=== PATIENT | female | born 1940 | race Caucasian/White ===

== ENCOUNTER 2018-06-22 06:04 | Day surgery (SDC) | payer MEDICARE, MEDICAID ==
[~2018-06-22] VITALS: Ht 152.4 cm; Wt 58.1 kg
[~2018-06-22 06:04] MED LIST: CALC-900 PO; CLON0.3T PO; CYCL30DR BOTHEYE; DORZ10DR8 BOTHEYE; DOXA8TAB81 PO; FISH1CAP63 PO; FOLI0.8T27 PO; INSU300I SQ; LINA5TAB PO; METO-539 PO; NIFE90TA34 PO; OMEP20CA10 PO; [UNRECOGNIZED DRUG - CODE] PO
[2018-06-22] MEDS ORDERED: SODIUM CHLORIDE 0.9% 500 ML IV ONE (06:40)
[2018-06-22] MEDS ORDERED: DEXTROSE 50% WATER 50ML SYRINGE IV ONE ×3 (07:03→07:11)
[2018-06-22 07:04] LABS: BASOPHILS % 0.3 % (0.0-2.0); HEMATOCRIT. 33.7 % (36.0-48.0); HEMOGLOBIN. 11.3 g/dL (12.0-16.0); LYMPHOCYTES % 13.7 % (20.0-50.0); MEAN CORPUSCULAR HEMOGLOBIN 33.7 pg (28.0-32.0); MEAN CORPUSCULAR VOLUME 100.6 fL (81.0-99.0); MEAN PLATELET VOLUME 8.1 fl (7.4-10.4); MONOCYTES % 11.4 % (2.0-8.0); NEUTROPHILS % 74.6 % (40.0-76.0); PLATELET 224 x1000/uL (130-400); RED BLOOD CELL COUNT 3.35 mill/uL (4.2-5.4); RED CELL DISTRIBUTION WIDTH 17.8 % (11.6-14.6)
[2018-06-22] MEDS ORDERED: THROMBIN (BOVINE) 5000 UNITS/VIAL TOP ONE (07:05)
[2018-06-22] MEDS ORDERED: HEPARIN SODIUM 1,000 UNIT/1ML VIAL IV ONE (07:05)
[2018-06-22] MEDS ORDERED: BUPIVACAINE HCL/PF 0.5% (5MG/ML) 10ML ONE (07:05)
[2018-06-22] MEDS ORDERED: LIDOCAINE HCL/PF 1% 10 MG/ML 5ML VIAL ONE ×3 (07:06→09:16)
[2018-06-22] MEDS ORDERED: GELATIN SPONGE,COMPRESSED SZ 100 ONE (07:06)
[2018-06-22] MEDS ORDERED: BACITRACIN 50,000 UNITS/VIAL ONE (07:08)
[2018-06-22] MEDS ORDERED: NORMAL SALINE 0.9% 10 ML SYR ONE (07:08)
[2018-06-22 07:11] LABS: INR 1.2; PARTIAL THROMBOPLASTIN TIME 36.2 sec (23.4-31.0); PROTHROMBIN TIME 11.9 sec (9.1-11.1)
[2018-06-22] MEDS ORDERED: FENTANYL CITRATE/PF 50MCG/ML 2ML VIAL ONE (07:15)
[2018-06-22] MEDS ORDERED: MIDAZOLAM HCL 2 MG/2 ML VIAL ONE (07:15)
[2018-06-22] MEDS ORDERED: PROPOFOL 10MG/ML 100ML 100 ML IV ONE (07:33)
[2018-06-22] MEDS ORDERED: ONDANSETRON HCL 4MG/2ML VIAL IV PRN (07:45)
[2018-06-22] MEDS ORDERED: HYDROCODONE/ACETAMINOPHEN 5/325MG TABLET PO PRN (07:45)
[2018-06-22] MEDS ORDERED: GLYCOPYRROLATE 0.2 MG/ML 2ML VIAL ONE (08:22)
[2018-06-22] MEDS ORDERED: NITROGLYCERIN 50MG PREMIX 250 ML IV ONE (09:09)
[2018-06-22] MEDS ORDERED: BACITRACIN ZINC 15GM TUBE TOP ONE (09:12)
[2018-06-22] MEDS ORDERED: CEFAZOLIN SODIUM 1000MG/VIAL ONE (09:16)
[2018-06-22] MEDS ORDERED: FENTANYL CITRATE/PF 50MCG/ML 2ML VIAL IV PRN (10:15)
[2018-06-22] MEDS ORDERED: MORPHINE SULFATE 4 MG/ML CPJ (NOT FOR IM USE) IV PRN (10:15)
[2018-06-22 10:31] VITALS: BP 158/60
== END 2018-06-22 12:30 | disposition home or self-care (01) ==
LOC: OR 06:04
PROVIDERS: ATTEND Surgery Vascular Surgery
DX: N18.6 End stage renal disease (principal); I12.0 Hypertensive chronic kidney disease with stage 5 chronic kidney disease or end stage renal disease; E11.22 Type 2 diabetes mellitus with diabetic chronic kidney disease; K21.9 Gastro-esophageal reflux disease without esophagitis; D64.9 Anemia, unspecified; Z99.2 Dependence on renal dialysis; Z79.899 Other long term (current) drug therapy; Z79.4 Long term (current) use of insulin; Z98.890 Other specified postprocedural states; Z88.8 Allergy status to other drugs, medicaments and biological substances
CPT/HCPCS: 36415; 36832; 71045; 80048; 82962; 85025; 85610; 85730; 93005; A4216; C1768; J0690; J1644; J2704; J3010; J3490; J7030; J2250

== ENCOUNTER 2018-06-28 14:56 | Inpatient (IN) | payer MEDICARE, MEDICAID ==
[~2018-06-28] VITALS: Ht 154.9 cm; Wt 79.8 kg
[2018-06-28] MEDS ORDERED: VANCOMYCIN 1 G PREMIX 200 ML IV SCH (16:00)
[2018-06-28] MEDS ORDERED: MORPHINE SULFATE 4 MG/ML CPJ (NOT FOR IM USE) IV ONE (16:00)
[2018-06-28 16:45] LABS: HEMATOCRIT. 31.3 % (36.0-48.0); HEMOGLOBIN. 10.4 g/dL (12.0-16.0); MEAN CORPUSCULAR VOLUME 99.5 fL (81.0-99.0); MEAN PLATELET VOLUME 8.5 fl (7.4-10.4); PLATELET 182 x1000/uL (130-400); RED BLOOD CELL COUNT 3.15 mill/uL (4.2-5.4)
[2018-06-28 16:47] LABS: CHLORIDE 92 mEq/L (98-107)
[2018-06-28 16:48] LABS: INR 1.1; PROTHROMBIN TIME 11.2 sec (9.1-11.1)
[2018-06-28] MEDS ORDERED: ALBUTEROL (0.083%) 2.5MG/3ML NEB HHN ONE (17:00)
[2018-06-28] MEDS ORDERED: INSULIN REGULAR (HUMULIN R) 300UNITS/3ML IV ONE (17:00)
[2018-06-28] MEDS ORDERED: SODIUM BICARBONATE 8.4% 1 MEQ/ML 50ML SYR IV ONE (17:00)
[2018-06-28] MEDS ORDERED: DEXTROSE 50% WATER 50ML SYRINGE IV ONE (17:00)
[2018-06-28 17:03] LABS: PLATELET ESTIMATE NORMAL
[2018-06-28] MEDS ORDERED: CLONIDINE 0.1MG TABLET PO PRN ×2 (18:45→19:32)
[2018-06-28] MEDS ORDERED: ACETAMINOPHEN 325MG TABLET PO PRN (18:45)
[2018-06-28] MEDS ORDERED: IPRATROPIUM/ALBUTEROL 0.5-3(2.5)MG/3ML NEB INH PRN (18:45)
[2018-06-28] MEDS ORDERED: ENOXAPARIN 40MG/0.4ML SYR SUBCUT SCH (18:45)
[2018-06-28] MEDS ORDERED: DOCUSATE SODIUM 100MG CAPSULE PO PRN (18:45)
[2018-06-28] MEDS ORDERED: MAGNESIUM/ALUMINUM HYDROXIDE/SIMETHICONE 30ML UDC PO PRN (18:45)
[2018-06-28] MEDS ORDERED: GUAIFENESIN 200MG/10ML SUGAR FREE UDC PO PRN (18:45)
[2018-06-28] MEDS ORDERED: HYDROMORPHONE HCL/PF 2MG/ML CPJ IV PRN (18:45)
[2018-06-28] MEDS ORDERED: DIPHENHYDRAMINE 50MG/ML VIAL IV PRN (18:45)
[2018-06-28] MEDS ORDERED: LORAZEPAM 2MG/ML CPJ IV PRN (18:45)
[2018-06-28] MEDS ORDERED: ONDANSETRON HCL 4MG/2ML VIAL IV PRN (18:45)
[2018-06-28 20:45] VITALS: BP 176/63
[2018-06-28] MEDS ORDERED: DEXTROSE 50% WATER 50ML SYRINGE IV PRN (21:45)
[2018-06-28] MEDS: CLONIDINE 0.1MG TABLET PO PRN (21:58)
[2018-06-28] MEDS ORDERED: NA PHOS,M-B/NA PHOS,DI-BA ENEMA 118ML PR PRN (22:00)
[2018-06-28 22:34] LABS: CHLORIDE 92 mEq/L (98-107)
[2018-06-28] MEDS ORDERED: INSU300I3 SQ (23:20)
[2018-06-28] MEDS ORDERED: LINA5TAB MT (23:23)
[2018-06-28] MEDS ORDERED: FOLI0.8T27 PO (23:24)
[2018-06-28] MEDS ORDERED: CALC-30 MT (23:28)
[2018-06-28] MEDS ORDERED: ATOR10TA PO (23:29)
[2018-06-28] MEDS ORDERED: CIPR1VIA2 EACH EAR (23:32)
[2018-06-28] MEDS ORDERED: CYCL30DR EACHEYE (23:33)
[2018-06-29] VITALS: BP 176/63
[2018-06-29] MEDS: CLONIDINE 0.1MG TABLET PO PRN ×2 (00:57→04:50)
[2018-06-29] MEDS ORDERED: SODIUM POLYSTYRENE SULFONATE 15 G/60 ML BOT PO NR ×2 (01:00→08:45)
[2018-06-29 04:00] VITALS: BP 176/62
[2018-06-29] MEDS: BLOOD SUGAR DIAGNOSTIC STRIP TEST SCH ×4 (06:06→20:57)
[2018-06-29] MEDS: INSULIN LISPRO 100 UNITS/ML SUBCUT SCH ×4 (06:06→20:56)
[2018-06-29 07:21] LABS: BASOPHILS % 0.2 % (0.0-2.0); HEMATOCRIT. 28.2 % (36.0-48.0); HEMOGLOBIN. 9.5 g/dL (12.0-16.0); MEAN CORPUSCULAR HEMOGLOBIN 33.7 pg (28.0-32.0); MEAN CORPUSCULAR VOLUME 99.8 fL (81.0-99.0); MEAN PLATELET VOLUME 9.2 fl (7.4-10.4); MONOCYTES % 10.8 % (2.0-8.0); PLATELET 181 x1000/uL (130-400); RED BLOOD CELL COUNT 2.83 mill/uL (4.2-5.4); RED CELL DISTRIBUTION WIDTH 17.1 % (11.6-14.6)
[2018-06-29 07:37] LABS: CHLORIDE 93 mEq/L (98-107)
[2018-06-29 07:47] LABS: LDL CHOLESTEROL 50 mg/dL (5-100)
[2018-06-29 07:49] LABS: HDL CHOLESTEROL 44 mg/dL (40-59)
[2018-06-29 08:00] VITALS: BP_SYST 129; BP_SYST 178; BP_DIAS 62; BP_DIAS 82
[2018-06-29] MEDS ORDERED: INSULIN REGULAR (HUMULIN R) UD 100 UNITS/ML SYR IV NR (08:45)
[2018-06-29] MEDS ORDERED: DEXTROSE 50% WATER 50ML SYRINGE IV NR (08:45)
[2018-06-29] MEDS ORDERED: SODIUM BICARBONATE 8.4% 1 MEQ/ML 50ML SYR IV NR (08:45)
[2018-06-29] MEDS ORDERED: CALCIUM GLUCONATE 1,000 MG in DEXT 5% WATER 90 ML IV NR (09:00)
[2018-06-29] MEDS: ASPIRIN 81MG EC TABLET PO SCH (09:36)
[2018-06-29] MEDS: METOPROLOL TARTRATE 50MG TABLET PO SCH ×2 (09:36→20:34)
[2018-06-29] MEDS: OMEPRAZOLE 20MG CAPSULE EXTENDED RELEASE PO SCH (09:36)
[2018-06-29] MEDS: FOLIC ACID/VITAMIN B COMP W-C TABLET PO SCH (09:37)
[2018-06-29] MEDS: LINAGLIPTIN 5MG TABLET PO SCH (09:37)
[2018-06-29] MEDS: NIFEDIPINE XL 90MG TAB PO SCH (09:37)
[2018-06-29] MEDS: ENOXAPARIN 30MG/0.3ML SYR SUBCUT SCH (09:39)
[2018-06-29] MEDS ORDERED: PIPERACILLIN/TAZOBACTAM 2.25 G in DEXTROSE 5% WATER 50 ML IV SCH (10:00)
[2018-06-29 12:00] VITALS: BP 162/57
[2018-06-29] MEDS: SEVELAMER CARBONATE 800 MG TABLET PO SCH ×2 (12:40→17:19)
[2018-06-29] MEDS ORDERED: SODIUM BICARBONATE 4% (2.4MEQ) 5ML VIAL IV ONE (13:42)
[2018-06-29] MEDS ORDERED: LIDOCAINE HCL 1% 10 MG/ML 10ML VIAL ONE (13:43)
[2018-06-29] MEDS: PIPERACILLIN/TAZ 2.25G PREMIX 50 ML IV SCH ×2 (14:00→23:16)
[2018-06-29] MEDS: CLONIDINE 0.3MG TABLET PO SCH ×2 (14:00→23:16)
[2018-06-29 20:00] VITALS: BP 162/53
[2018-06-29] MEDS: ATORVASTATIN CALCIUM 10MG TABLET PO SCH (20:34)
[2018-06-29] MEDS: DOXAZOSIN MESYLATE 4MG TABLET PO SCH (20:34)
[2018-06-29] MEDS: HYDROCODONE/ACETAMINOPHEN 10/325MG TABLET PO PRN (20:35)
[2018-06-29] MEDS: INSULIN GLARGINE UD 100 UNITS/ML SYR SUBCUT SCH (22:00)
[2018-06-30] VITALS: BP 150/57
[2018-06-30 04:00] VITALS: BP 142/53
[2018-06-30] MEDS: PIPERACILLIN/TAZ 2.25G PREMIX 50 ML IV SCH ×3 (05:53→21:41)
[2018-06-30] MEDS: CLONIDINE 0.3MG TABLET PO SCH (06:00)
[2018-06-30] MEDS: BLOOD SUGAR DIAGNOSTIC STRIP TEST SCH ×4 (06:12→20:17)
[2018-06-30] MEDS: FOLIC ACID/VITAMIN B COMP W-C TABLET PO SCH (06:16)
[2018-06-30] MEDS: INSULIN LISPRO 100 UNITS/ML SUBCUT SCH ×4 (06:24→20:23)
[2018-06-30] MEDS: HYDROCODONE/ACETAMINOPHEN 10/325MG TABLET PO PRN (06:25)
[2018-06-30 07:46] LABS: HEMATOCRIT. 28.8 % (36.0-48.0); HEMOGLOBIN. 9.6 g/dL (12.0-16.0); RED BLOOD CELL COUNT 2.86 mill/uL (4.2-5.4)
[2018-06-30 07:47] LABS: BASOPHILS % 0.3 % (0.0-2.0); MEAN CORPUSCULAR HEMOGLOBIN 33.4 pg (28.0-32.0); MEAN CORPUSCULAR VOLUME 100.8 fL (81.0-99.0); MEAN PLATELET VOLUME 8.8 fl (7.4-10.4); MONOCYTES % 11.3 % (2.0-8.0); NEUTROPHILS % 78.4 % (40.0-76.0); PLATELET 186 x1000/uL (130-400); RED CELL DISTRIBUTION WIDTH 17.1 % (11.6-14.6)
[2018-06-30 08:00] VITALS: BP 166/56
[2018-06-30] MEDS: SEVELAMER CARBONATE 800 MG TABLET PO SCH ×3 (08:14→17:44)
[2018-06-30] MEDS: NIFEDIPINE XL 90MG TAB PO SCH (08:14)
[2018-06-30] MEDS: LINAGLIPTIN 5MG TABLET PO SCH (08:15)
[2018-06-30] MEDS: ASPIRIN 81MG EC TABLET PO SCH (08:15)
[2018-06-30] MEDS: METOPROLOL TARTRATE 50MG TABLET PO SCH ×2 (08:15→20:17)
[2018-06-30] MEDS: ENOXAPARIN 30MG/0.3ML SYR SUBCUT SCH (08:16)
[2018-06-30] MEDS ORDERED: LACTULOSE 20G/30ML UDC PO NR (10:00)
[2018-06-30] MEDS: OMEPRAZOLE 20MG CAPSULE EXTENDED RELEASE PO SCH (10:22)
[2018-06-30 12:00] VITALS: BP 147/63
[2018-06-30 12:16] LABS: T4 FREE 1.08 ng/dL (0.76-1.46)
[2018-06-30] MEDS: CLONIDINE 0.1MG TABLET PO PRN (12:50)
[2018-06-30] MEDS: DORZOLAMIDE 2% OPHTH 10 ML BOTTLE BOTHEYE SCH ×2 (13:16→21:42)
[2018-06-30] MEDS ORDERED: VANCOMYCIN 750 MG PREMIX 150 ML IV SCH (16:00)
[2018-06-30 16:13] VITALS: BP 142/52
[2018-06-30 17:57] LABS: CREATINE KINASE 29 IU/L (26-192)
[2018-06-30 17:59] LABS: CREATINE KINASE MB FRACTION < 1.0 ng/mL (0.5-3.6)
[2018-06-30 20:00] VITALS: BP 139/50
[2018-06-30] MEDS: ATORVASTATIN CALCIUM 10MG TABLET PO SCH (20:16)
[2018-06-30] MEDS: DOXAZOSIN MESYLATE 4MG TABLET PO SCH (20:17)
[2018-06-30] MEDS: INSULIN GLARGINE UD 100 UNITS/ML SYR SUBCUT SCH (22:00)
[2018-07-01] VITALS: BP 145/80
[2018-07-01 01:55] LABS: CREATINE KINASE 27 IU/L (26-192)
[2018-07-01 01:57] LABS: CREATINE KINASE MB FRACTION < 1.0 ng/mL (0.5-3.6)
[2018-07-01 04:00] VITALS: BP 160/59
[2018-07-01] MEDS: PIPERACILLIN/TAZ 2.25G PREMIX 50 ML IV SCH ×3 (05:48→22:29)
[2018-07-01] MEDS: DORZOLAMIDE 2% OPHTH 10 ML BOTTLE BOTHEYE SCH ×3 (05:48→22:28)
[2018-07-01] MEDS: FOLIC ACID/VITAMIN B COMP W-C TABLET PO SCH ×2 (06:11→08:41)
[2018-07-01] MEDS: INSULIN LISPRO 100 UNITS/ML SUBCUT SCH ×4 (06:14→21:00)
[2018-07-01] MEDS: BLOOD SUGAR DIAGNOSTIC STRIP TEST SCH ×4 (06:24→21:00)
[2018-07-01 08:00] VITALS: BP 177/82
[2018-07-01] MEDS ORDERED: BISACODYL 5MG TABLET PO SCH (08:30)
[2018-07-01] MEDS: SEVELAMER CARBONATE 800 MG TABLET PO SCH ×3 (08:40→17:50)
[2018-07-01] MEDS: LINAGLIPTIN 5MG TABLET PO SCH (08:40)
[2018-07-01] MEDS: OMEPRAZOLE 20MG CAPSULE EXTENDED RELEASE PO SCH (08:41)
[2018-07-01] MEDS: NIFEDIPINE XL 90MG TAB PO SCH (08:41)
[2018-07-01] MEDS: METOPROLOL TARTRATE 50MG TABLET PO SCH ×2 (08:42→22:27)
[2018-07-01] MEDS: ASPIRIN 81MG EC TABLET PO SCH (08:42)
[2018-07-01] MEDS: ENOXAPARIN 30MG/0.3ML SYR SUBCUT SCH (08:43)
[2018-07-01] MEDS: CLONIDINE 0.1MG TABLET PO PRN (11:50)
[2018-07-01 12:00] VITALS: BP 191/64
[2018-07-01] MEDS ORDERED: VANCOMYCIN 750 MG PREMIX 150 ML IV SCH (14:00)
[2018-07-01] MEDS: HYDRALAZINE HCL 50MG TABLET PO SCH ×2 (15:47→22:00)
[2018-07-01 16:00] VITALS: BP 152/58
[2018-07-01 20:00] VITALS: BP 150/48
[2018-07-01 21:24] LABS: HEMOGLOBIN. 9.9 g/dL (12.0-16.0); MEAN CORPUSCULAR HEMOGLOBIN 33.1 pg (28.0-32.0); MEAN CORPUSCULAR VOLUME 99.8 fL (81.0-99.0); MEAN PLATELET VOLUME 8.6 fl (7.4-10.4); PLATELET 209 x1000/uL (130-400); RED CELL DISTRIBUTION WIDTH 16.3 % (11.6-14.6)
[2018-07-01 21:31] LABS: CHLORIDE 96 mEq/L (98-107)
[2018-07-01 21:39] LABS: CREATINE KINASE 26 IU/L (26-192)
[2018-07-01 21:41] LABS: CREATINE KINASE MB FRACTION < 1.0 ng/mL (0.5-3.6)
[2018-07-01 22:08] LABS: PLATELET ESTIMATE NORMAL
[2018-07-01] MEDS: DOXAZOSIN MESYLATE 4MG TABLET PO SCH (22:26)
[2018-07-01] MEDS: ATORVASTATIN CALCIUM 10MG TABLET PO SCH (22:27)
[2018-07-02] VITALS: BP 148/58
[2018-07-02 04:00] VITALS: BP 157/56
[2018-07-02] MEDS: DORZOLAMIDE 2% OPHTH 10 ML BOTTLE BOTHEYE SCH (05:56)
[2018-07-02] MEDS: PIPERACILLIN/TAZ 2.25G PREMIX 50 ML IV SCH (05:57)
[2018-07-02] MEDS: HYDRALAZINE HCL 50MG TABLET PO SCH ×2 (05:57→13:38)
[2018-07-02] MEDS: SEVELAMER CARBONATE 800 MG TABLET PO SCH ×2 (06:02→12:44)
[2018-07-02] MEDS: INSULIN LISPRO 100 UNITS/ML SUBCUT SCH ×2 (06:18→12:44)
[2018-07-02] MEDS: BLOOD SUGAR DIAGNOSTIC STRIP TEST SCH ×2 (06:18→12:44)
[2018-07-02 08:30] VITALS: BP 148/52
[2018-07-02] MEDS ORDERED: FAMOTIDINE 20MG TABLET PO SCH (09:00)
[2018-07-02] MEDS: NIFEDIPINE XL 90MG TAB PO SCH (09:00)
[2018-07-02] MEDS: METOPROLOL TARTRATE 50MG TABLET PO SCH (09:00)
[2018-07-02] MEDS: ASPIRIN 81MG EC TABLET PO SCH (09:22)
[2018-07-02] MEDS: LINAGLIPTIN 5MG TABLET PO SCH (09:22)
[2018-07-02] MEDS: ENOXAPARIN 30MG/0.3ML SYR SUBCUT SCH (09:23)
[2018-07-02 11:23] VITALS: BP 155/53
[2018-07-02 12:00] VITALS: BP 155/53
== END 2018-07-02 14:45 | disposition home or self-care (01) | DRG 919 ==
LOC: ER 14:56 → 8WST 17:24 → EDBEDREQ 17:29 → ENRESERV 19:52 → 8WST 06-29 15:47
PROVIDERS: ADMIT Internal Medicine; ATTEND Internal Medicine
PROC: B5181ZA Fluoroscopy of Superior Vena Cava using Low Osmolar Contrast, Guidance (ICD-10-PCS; principal; 2018-06-29)
PROC: 02HV33Z Insertion of Infusion Device into Superior Vena Cava, Percutaneous Approach (ICD-10-PCS; 2018-06-29)
PROC: B548ZZA Ultrasonography of Superior Vena Cava, Guidance (ICD-10-PCS; 2018-06-29)
PROC: 5A1D70Z Performance of Urinary Filtration, Intermittent, Less than 6 Hours Per Day (ICD-10-PCS; 2018-06-29)
PROC: 5A1D70Z Performance of Urinary Filtration, Intermittent, Less than 6 Hours Per Day (ICD-10-PCS; 2018-07-01)
DX: T85.79XA Infection and inflammatory reaction due to other internal prosthetic devices, implants and grafts, initial encounter (principal); N18.6 End stage renal disease; E46 Unspecified protein-calorie malnutrition; I13.2 Hypertensive heart and chronic kidney disease with heart failure and with stage 5 chronic kidney disease, or end stage renal disease; L03.114 Cellulitis of left upper limb; E87.5 Hyperkalemia; E11.22 Type 2 diabetes mellitus with diabetic chronic kidney disease; Y84.1 Kidney dialysis as the cause of abnormal reaction of the patient, or of later complication, without mention of misadventure at the time of the procedure; E66.9 Obesity, unspecified; D64.9 Anemia, unspecified; I25.10 Atherosclerotic heart disease of native coronary artery without angina pectoris; I50.9 Heart failure, unspecified; I27.20 Pulmonary hypertension, unspecified; Z79.4 Long term (current) use of insulin; Z91.041 Radiographic dye allergy status; Z68.33 Body mass index [BMI] 33.0-33.9, adult; Z99.2 Dependence on renal dialysis; Z79.2 Long term (current) use of antibiotics; Z79.899 Other long term (current) drug therapy; Y92.89 Other specified places as the place of occurrence of the external cause
CPT/HCPCS: 36415; 36556; 71045; 74176; 76881; 76937; 77001; 80048; 80053; 80061; 80202; 82550; 82553; 82962; 83036; 83605; 83880; 84132; 84439; 84443; 84484; 85025; 85379; 85610; 87040; 93005; 93306; 94644; 96365; 96366; 96375; 97112; 97162; 97166; 97530; 99285; C1752; C1893; J0610; J1642; J1650; J1815; J2270; J2405; J2543; J3370; J3490; J7030; J7050; J7060; J7611

== ENCOUNTER 2018-08-27 12:27 | Inpatient (IN) | payer MEDICARE, MEDICAID ==
[~2018-08-27] VITALS: Ht 152.4 cm; Wt 60.5 kg
[~2018-08-27 12:27] MED LIST changes: +ATOR10TA PO; +CALC-30 MT; +CIPR1VIA2 EACH EAR; -CLON0.3T PO; +CYCL30DR EACHEYE; +INSU300I3 SQ; +LINA5TAB MT
[2018-08-27 13:54] LABS: BASOPHILS % 0.6 % (0.0-2.0); HEMATOCRIT. 34.5 % (36.0-48.0); HEMOGLOBIN. 11.4 g/dL (12.0-16.0); MEAN CORPUSCULAR HEMOGLOBIN 31.9 pg (28.0-32.0); MEAN CORPUSCULAR VOLUME 96.6 fL (81.0-99.0); MEAN PLATELET VOLUME 8.2 fl (7.4-10.4); MONOCYTES % 9.5 % (2.0-8.0); NEUTROPHILS % 79.9 % (40.0-76.0); PLATELET 192 x1000/uL (130-400); RED BLOOD CELL COUNT 3.57 mill/uL (4.2-5.4); RED CELL DISTRIBUTION WIDTH 18.1 % (11.6-14.6)
[2018-08-27 14:00] LABS: INR 1.2; PROTHROMBIN TIME 11.9 sec (9.1-11.1)
[2018-08-27 14:07] LABS: CHLORIDE 92 mEq/L (98-107)
[2018-08-27] MEDS ORDERED: MORPHINE SULFATE 2 MG/ML CPJ (NOT FOR IM USE) IV ONE (14:45)
[2018-08-27 22:00] VITALS: BP 153/63
[2018-08-28] VITALS: BP 90/60
[2018-08-28 01:52] LABS: BASOPHILS % 0.5 % (0.0-2.0); HEMATOCRIT. 36.2 % (36.0-48.0); HEMOGLOBIN. 11.7 g/dL (12.0-16.0); LYMPHOCYTES % 11.2 % (20.0-50.0); MEAN CORPUSCULAR HEMOGLOBIN 31.5 pg (28.0-32.0); MEAN CORPUSCULAR VOLUME 97.4 fL (81.0-99.0); MEAN PLATELET VOLUME 8.4 fl (7.4-10.4); MONOCYTES % 8.9 % (2.0-8.0); NEUTROPHILS % 79.4 % (40.0-76.0); PLATELET 194 x1000/uL (130-400); RED BLOOD CELL COUNT 3.72 mill/uL (4.2-5.4); RED CELL DISTRIBUTION WIDTH 17.9 % (11.6-14.6)
[2018-08-28 04:00] VITALS: BP 133/55
[2018-08-28] MEDS: OMEPRAZOLE 20MG CAPSULE EXTENDED RELEASE PO SCH (06:31)
[2018-08-28] MEDS: BLOOD SUGAR DIAGNOSTIC STRIP TEST SCH ×4 (06:51→21:19)
[2018-08-28] MEDS ORDERED: DEXTROSE 50% WATER 50ML SYRINGE IV PRN (07:00)
[2018-08-28] MEDS: INSULIN LISPRO 100 UNITS/ML SUBCUT SCH ×4 (07:50→21:00)
[2018-08-28 08:00] VITALS: BP 166/68
[2018-08-28] MEDS ORDERED: METOPROLOL TARTRATE 50MG TABLET PO SCH (09:00)
[2018-08-28] MEDS ORDERED: NIFEDIPINE 90 MG PO SCH (09:00)
[2018-08-28] MEDS ORDERED: MEDICATION NOT ON FORMULARY EA (Doxazosin Mesylate 1 MG) PO SCH (09:00)
[2018-08-28] MEDS ORDERED: ATORVASTATIN CALCIUM 10MG TABLET PO SCH (09:00)
[2018-08-28] MEDS: LINAGLIPTIN 5MG TABLET PO SCH (09:00)
[2018-08-28] MEDS ORDERED: MEDICATION NOT ON FORMULARY EA (Metoprolol Tartrate 50 MG) PO SCH (09:00)
[2018-08-28] MEDS ORDERED: DOXAZOSIN MESYLATE 2MG TABLET PO SCH ×2 (09:00)
[2018-08-28 12:00] VITALS: BP 165/71
[2018-08-28] MEDS: SEVELAMER CARBONATE 800 MG TABLET PO SCH ×2 (12:50→18:34)
[2018-08-28] MEDS: DORZOLAMIDE 2% OPHTH 10 ML BOTTLE BOTHEYE SCH ×2 (14:17→18:34)
[2018-08-28] MEDS: NIFEDIPINE XL 90MG TAB PO SCH (15:15)
[2018-08-28] MEDS: HYDRALAZINE HCL 25MG TABLET PO SCH ×2 (15:15→21:19)
[2018-08-28 17:39] LABS: AMMONIA 28 uMol/L (<32)
[2018-08-28 20:00] VITALS: BP 168/66
[2018-08-28] MEDS: VALACYCLOVIR HCL 500MG TABLET PO SCH (21:00)
[2018-08-28] MEDS: ATORVASTATIN CALCIUM 10MG TABLET PO SCH (21:18)
[2018-08-28] MEDS: DOXAZOSIN MESYLATE 4MG TABLET PO SCH (21:18)
[2018-08-28] MEDS: METOPROLOL TARTRATE 25MG TABLET PO SCH (21:19)
[2018-08-28] MEDS: CALAMINE LOTION 120ML TOP SCH (22:00)
[2018-08-28 23:57] VITALS: BP 137/69
[2018-08-29 04:00] VITALS: BP 130/67
[2018-08-29] MEDS: HYDRALAZINE HCL 25MG TABLET PO SCH ×3 (05:14→21:57)
[2018-08-29] MEDS: CALAMINE LOTION 120ML TOP SCH ×3 (05:15→22:06)
[2018-08-29] MEDS: BLOOD SUGAR DIAGNOSTIC STRIP TEST SCH ×4 (06:34→21:00)
[2018-08-29] MEDS: OMEPRAZOLE 20MG CAPSULE EXTENDED RELEASE PO SCH (06:35)
[2018-08-29 07:06] LABS: BASOPHILS % 0.3 % (0.0-2.0); HEMATOCRIT. 33.4 % (36.0-48.0); LYMPHOCYTES % 9.9 % (20.0-50.0); MEAN CORPUSCULAR HEMOGLOBIN 32.2 pg (28.0-32.0); MEAN CORPUSCULAR VOLUME 97.4 fL (81.0-99.0); MEAN PLATELET VOLUME 8.4 fl (7.4-10.4); MONOCYTES % 9.1 % (2.0-8.0); NEUTROPHILS % 80.7 % (40.0-76.0); PLATELET 209 x1000/uL (130-400); RED BLOOD CELL COUNT 3.43 mill/uL (4.2-5.4); RED CELL DISTRIBUTION WIDTH 18.5 % (11.6-14.6)
[2018-08-29] MEDS: INSULIN LISPRO 100 UNITS/ML SUBCUT SCH ×4 (07:50→21:56)
[2018-08-29 08:00] VITALS: BP 153/53
[2018-08-29] MEDS ORDERED: GABAPENTIN 100MG CAPSULE PO SCH ×2 (09:00)
[2018-08-29] MEDS: NIFEDIPINE XL 90MG TAB PO SCH (09:38)
[2018-08-29] MEDS: SEVELAMER CARBONATE 800 MG TABLET PO SCH ×3 (09:39→18:00)
[2018-08-29] MEDS: METOPROLOL TARTRATE 25MG TABLET PO SCH ×2 (09:40→21:50)
[2018-08-29] MEDS: FOLIC ACID/VITAMIN B COMP W-C TABLET PO SCH (09:40)
[2018-08-29] MEDS: LINAGLIPTIN 5MG TABLET PO SCH (09:40)
[2018-08-29] MEDS: VALACYCLOVIR HCL 500MG TABLET PO SCH ×2 (09:41→22:06)
[2018-08-29] MEDS: DORZOLAMIDE 2% OPHTH 10 ML BOTTLE BOTHEYE SCH ×3 (09:41→18:00)
[2018-08-29 12:00] VITALS: BP 156/57
[2018-08-29 13:11] LABS: AMMONIA 29 uMol/L (<32)
[2018-08-29 14:53] LABS: FOLIC ACID (FOLATE) SERUM >20 ng/mL ng/mL (>5.38); VITAMIN B12 SERUM 332 pg/mL (211-911)
[2018-08-29 16:00] VITALS: BP 146/53
[2018-08-29 16:16] LABS: ETHANOL BLOOD < 10 mg/dL
[2018-08-29 16:26] LABS: T4 FREE 1.15 ng/dL (0.76-1.46)
[2018-08-29 20:00] VITALS: BP 135/54
[2018-08-29] MEDS: DOXAZOSIN MESYLATE 4MG TABLET PO SCH (21:48)
[2018-08-29] MEDS: ATORVASTATIN CALCIUM 10MG TABLET PO SCH (21:48)
[2018-08-30] VITALS: BP 127/49
[2018-08-30 04:08] VITALS: BP 151/61
[2018-08-30] MEDS: CALAMINE LOTION 120ML TOP SCH ×3 (05:03→21:48)
[2018-08-30 06:22] LABS: BASOPHILS % 0.3 % (0.0-2.0); HEMATOCRIT. 33.9 % (36.0-48.0); HEMOGLOBIN. 11.3 g/dL (12.0-16.0); LYMPHOCYTES % 10.8 % (20.0-50.0); MEAN CORPUSCULAR HEMOGLOBIN 32.3 pg (28.0-32.0); MEAN CORPUSCULAR VOLUME 97.2 fL (81.0-99.0); MEAN PLATELET VOLUME 8.7 fl (7.4-10.4); MONOCYTES % 8.3 % (2.0-8.0); NEUTROPHILS % 80.6 % (40.0-76.0); PLATELET 230 x1000/uL (130-400); RED BLOOD CELL COUNT 3.49 mill/uL (4.2-5.4); RED CELL DISTRIBUTION WIDTH 17.9 % (11.6-14.6)
[2018-08-30] MEDS: OMEPRAZOLE 20MG CAPSULE EXTENDED RELEASE PO SCH (06:41)
[2018-08-30] MEDS: BLOOD SUGAR DIAGNOSTIC STRIP TEST SCH ×4 (06:41→21:48)
[2018-08-30 06:55] LABS: PHOSPHORUS 3.5 mg/dL (2.5-4.9)
[2018-08-30 08:00] VITALS: BP 155/55
[2018-08-30] MEDS: FOLIC ACID/VITAMIN B COMP W-C TABLET PO SCH (10:27)
[2018-08-30] MEDS: HYDRALAZINE HCL 25MG TABLET PO SCH ×3 (10:27→22:00)
[2018-08-30] MEDS: SEVELAMER CARBONATE 800 MG TABLET PO SCH ×3 (10:27→17:50)
[2018-08-30] MEDS: LINAGLIPTIN 5MG TABLET PO SCH (10:28)
[2018-08-30] MEDS: CYANOCOBALAMIN 1000MCG TABLET PO SCH (10:28)
[2018-08-30] MEDS: VALACYCLOVIR HCL 500MG TABLET PO SCH ×2 (10:42→21:48)
[2018-08-30] MEDS: DORZOLAMIDE 2% OPHTH 10 ML BOTTLE BOTHEYE SCH ×3 (10:42→17:18)
[2018-08-30 12:00] VITALS: BP 113/74
[2018-08-30] MEDS: INSULIN LISPRO 100 UNITS/ML SUBCUT SCH ×3 (12:44→22:02)
[2018-08-30 16:00] VITALS: BP 162/76
[2018-08-30] MEDS: METOPROLOL TARTRATE 25MG TABLET PO SCH ×2 (17:08→21:00)
[2018-08-30] MEDS: ATORVASTATIN CALCIUM 10MG TABLET PO SCH (17:09)
[2018-08-30] MEDS: NIFEDIPINE XL 90MG TAB PO SCH (17:09)
[2018-08-30 20:03] VITALS: BP 194/72
[2018-08-30] MEDS: DOXAZOSIN MESYLATE 4MG TABLET PO SCH (21:00)
[2018-08-31 00:03] VITALS: BP 139/57
[2018-08-31 04:26] VITALS: BP 141/62
[2018-08-31] MEDS: HYDRALAZINE HCL 25MG TABLET PO SCH ×3 (07:03→22:00)
[2018-08-31] MEDS: BLOOD SUGAR DIAGNOSTIC STRIP TEST SCH ×4 (07:03→21:47)
[2018-08-31] MEDS: OMEPRAZOLE 20MG CAPSULE EXTENDED RELEASE PO SCH (07:03)
[2018-08-31] MEDS: CALAMINE LOTION 120ML TOP SCH ×3 (07:03→21:49)
[2018-08-31 07:43] LABS: BASOPHILS % 0.3 % (0.0-2.0); HEMATOCRIT. 37.5 % (36.0-48.0); HEMOGLOBIN. 12.2 g/dL (12.0-16.0); LYMPHOCYTES % 11.7 % (20.0-50.0); MEAN CORPUSCULAR HEMOGLOBIN 31.7 pg (28.0-32.0); MEAN CORPUSCULAR VOLUME 97.3 fL (81.0-99.0); MEAN PLATELET VOLUME 8.5 fl (7.4-10.4); MONOCYTES % 8.3 % (2.0-8.0); NEUTROPHILS % 79.7 % (40.0-76.0); PLATELET 227 x1000/uL (130-400); RED BLOOD CELL COUNT 3.85 mill/uL (4.2-5.4); RED CELL DISTRIBUTION WIDTH 18.4 % (11.6-14.6)
[2018-08-31] MEDS: INSULIN LISPRO 100 UNITS/ML SUBCUT SCH ×4 (07:50→21:50)
[2018-08-31 08:00] VITALS: BP 156/61
[2018-08-31] MEDS: METOPROLOL TARTRATE 25MG TABLET PO SCH ×2 (09:00→21:00)
[2018-08-31] MEDS: NIFEDIPINE XL 90MG TAB PO SCH (10:59)
[2018-08-31] MEDS: CYANOCOBALAMIN 1000MCG TABLET PO SCH (10:59)
[2018-08-31] MEDS: LINAGLIPTIN 5MG TABLET PO SCH (10:59)
[2018-08-31] MEDS: SEVELAMER CARBONATE 800 MG TABLET PO SCH ×3 (11:00→19:03)
[2018-08-31] MEDS: FOLIC ACID/VITAMIN B COMP W-C TABLET PO SCH (11:00)
[2018-08-31] MEDS: DORZOLAMIDE 2% OPHTH 10 ML BOTTLE BOTHEYE SCH ×3 (11:00→19:04)
[2018-08-31] MEDS: VALACYCLOVIR HCL 500MG TABLET PO SCH ×2 (11:01→21:47)
[2018-08-31 11:57] VITALS: BP 143/55
[2018-08-31] MEDS: CLOPIDOGREL 75MG TABLET PO SCH (13:58)
[2018-08-31 16:00] VITALS: BP 120/42
[2018-08-31 20:00] VITALS: BP 122/42
[2018-08-31] MEDS: DOXAZOSIN MESYLATE 4MG TABLET PO SCH (21:00)
[2018-08-31] MEDS: ATORVASTATIN CALCIUM 10MG TABLET PO SCH (21:47)
[2018-09-01] VITALS: BP 138/52
[2018-09-01 04:00] VITALS: BP 154/63
[2018-09-01] MEDS: HYDRALAZINE HCL 25MG TABLET PO SCH (06:00)
[2018-09-01] MEDS: OMEPRAZOLE 20MG CAPSULE EXTENDED RELEASE PO SCH (06:48)
[2018-09-01] MEDS: BLOOD SUGAR DIAGNOSTIC STRIP TEST SCH (06:48)
[2018-09-01] MEDS: CALAMINE LOTION 120ML TOP SCH (06:49)
[2018-09-01] MEDS: INSULIN LISPRO 100 UNITS/ML SUBCUT SCH (07:50)
[2018-09-01 08:00] VITALS: BP 159/63
[2018-09-01] MEDS: CLOPIDOGREL 75MG TABLET PO SCH (08:20)
[2018-09-01] MEDS: FOLIC ACID/VITAMIN B COMP W-C TABLET PO SCH (08:20)
[2018-09-01] MEDS: LINAGLIPTIN 5MG TABLET PO SCH (08:20)
[2018-09-01] MEDS: SEVELAMER CARBONATE 800 MG TABLET PO SCH (08:20)
[2018-09-01] MEDS: NIFEDIPINE XL 90MG TAB PO SCH (08:21)
[2018-09-01] MEDS: CYANOCOBALAMIN 1000MCG TABLET PO SCH (08:21)
[2018-09-01] MEDS: DORZOLAMIDE 2% OPHTH 10 ML BOTTLE BOTHEYE SCH (08:21)
[2018-09-01] MEDS: VALACYCLOVIR HCL 500MG TABLET PO SCH (08:22)
[2018-09-01 09:33] VITALS: BP 159/63
== END 2018-09-01 10:29 | disposition home health service (06) | DRG 64 ==
LOC: ER 12:37 → 6WST 14:36 → EDBEDREQ 19:26 → EDBEDREQTM 19:26 → ENRESERV 20:17
PROVIDERS: ADMIT Internal Medicine Nephrology; ATTEND Internal Medicine Nephrology
PROC: 5A1D70Z Performance of Urinary Filtration, Intermittent, Less than 6 Hours Per Day (ICD-10-PCS; 2018-08-28)
PROC: 5A1D70Z Performance of Urinary Filtration, Intermittent, Less than 6 Hours Per Day (ICD-10-PCS; 2018-08-30)
PROC: 4A00X4Z Measurement of Central Nervous Electrical Activity, External Approach (ICD-10-PCS; principal; 2018-08-31)
DX: I63.521 Cerebral infarction due to unspecified occlusion or stenosis of right anterior cerebral artery (principal); G92 Toxic encephalopathy; N18.6 End stage renal disease; I13.2 Hypertensive heart and chronic kidney disease with heart failure and with stage 5 chronic kidney disease, or end stage renal disease; I50.9 Heart failure, unspecified; D64.9 Anemia, unspecified; E11.22 Type 2 diabetes mellitus with diabetic chronic kidney disease; E78.5 Hyperlipidemia, unspecified; R26.9 Unspecified abnormalities of gait and mobility; G89.29 Other chronic pain; Z79.02 Long term (current) use of antithrombotics/antiplatelets; Z86.19 Personal history of other infectious and parasitic diseases; Z99.2 Dependence on renal dialysis; Z91.041 Radiographic dye allergy status; Z79.2 Long term (current) use of antibiotics; Z79.4 Long term (current) use of insulin; Z79.899 Other long term (current) drug therapy
CPT/HCPCS: 36415; 70544; 70553; 71045; 80048; 82140; 82607; 82746; 82962; 83036; 83735; 84100; 84439; 84443; 84481; 84484; 93005; 93880; 97116; 97162; 97166; 97530; 99291; G0482; J1815; J7030

== ENCOUNTER 2018-11-04 07:43 | Day surgery (SDC) | payer MEDICARE, MEDICAID ==
[~2018-11-04 07:43] MED LIST changes: +ATOR10TA MT; -ATOR10TA PO; +HYDR-4135 MT
[2018-11-04] MEDS ORDERED: DEXTROSE 50% WATER 50ML SYRINGE IV ONE (09:30)
[2018-11-04] MEDS ORDERED: TETRACAINE/BENZOCAINE/BUTAMBEN 20 GM SPRAY MM ONE (09:59)
[2018-11-04] MEDS ORDERED: MIDAZOLAM HCL 5 MG/5 ML VIAL ONE (09:59)
[2018-11-04] MEDS ORDERED: FENTANYL CITRATE/PF 50MCG/ML 2ML VIAL ONE (09:59)
[2018-11-04] MEDS ORDERED: LIDOCAINE HCL 2% JELLY 5ML ONE ×2 (10:01→10:08)
[2018-11-04] MEDS ORDERED: ONDANSETRON HCL 4MG/2ML INJ IV PRN (10:30)
[2018-11-04] MEDS ORDERED: ACETAMINOPHEN 325MG TABLET PO PRN (10:30)
[2018-11-04] MEDS ORDERED: HYDR-4135 PO (11:28)
[2018-11-04] MEDS ORDERED: METO25TA6 PO (11:28)
[2018-11-04] MEDS ORDERED: SEVE800T8 PO (11:28)
[2018-11-04] MEDS ORDERED: ATOR10TA69 PO (11:28)
[2018-11-04] MEDS ORDERED: CLOP75TA16 PO (11:28)
== END 2018-11-04 14:10 | disposition home or self-care (01) ==
LOC: CARD 07:43
PROVIDERS: ATTEND Specialist
DX: I13.11 Hypertensive heart and chronic kidney disease without heart failure, with stage 5 chronic kidney disease, or end stage renal disease (principal); K21.9 Gastro-esophageal reflux disease without esophagitis; E78.5 Hyperlipidemia, unspecified; N18.6 End stage renal disease; D63.1 Anemia in chronic kidney disease
CPT/HCPCS: 82962; 93312; 99152; 99153; J2250; J3010; G0500

== ENCOUNTER 2018-11-09 06:04 | Day surgery (SDC) | payer MEDICARE, MEDICAID ==
[~2018-11-09] VITALS: Ht 152.4 cm; Wt 51.3 kg
[~2018-11-09 06:04] MED LIST changes: -ATOR10TA MT; +ATOR10TA69 PO; -CALC-900 PO; -CIPR1VIA2 EACH EAR; +CLOP75TA16 PO; -CYCL30DR EACHEYE; -FOLI0.8T27 PO; -HYDR-4135 MT; +HYDR-4135 PO; -INSU300I SQ; -LINA5TAB MT; -METO-539 PO; +METO25TA6 PO; +SEVE800T8 PO; +SODIUM CHLORIDE 0.9% 500 ML IV ONE; -[UNRECOGNIZED DRUG - CODE] PO
[2018-11-09] MEDS ORDERED: LIDOCAINE HCL 1% 20ML VIAL (Pyxis) INJ ONE (06:35)
[2018-11-09] MEDS ORDERED: GELATIN SPONGE,ABSORBABLE 12-7MM SPONGE ONE (06:35)
[2018-11-09] MEDS ORDERED: PAPAVERINE HCL 30 MG/ML 2ML IV ONE (06:35)
[2018-11-09] MEDS ORDERED: BACITRACIN 15GM TUBE TOP ONE (06:36)
[2018-11-09] MEDS ORDERED: HEPARIN SODIUM 1,000 UNIT/1ML VIAL IV ONE (06:36)
[2018-11-09] MEDS ORDERED: THROMBIN (BOVINE) 5000 UNITS/VIAL TOP ONE (06:36)
[2018-11-09] MEDS ORDERED: BUPIVACAINE HCL/PF 0.5% (5MG/ML) 10ML ONE (06:37)
[2018-11-09] MEDS ORDERED: BACITRACIN 50,000 UNITS/VIAL ONE (06:37)
[2018-11-09] MEDS ORDERED: NORMAL SALINE 0.9% 10 ML SYR ONE (06:37)
[2018-11-09 06:56] LABS: BASOPHILS % 0.3 % (0.0-2.0); HEMATOCRIT. 38.2 % (36.0-48.0); HEMOGLOBIN. 12.4 g/dL (12.0-16.0); LYMPHOCYTES % 10.6 % (20.0-50.0); MEAN CORPUSCULAR HEMOGLOBIN 33.3 pg (28.0-32.0); MEAN CORPUSCULAR VOLUME 102.3 fL (81.0-99.0); MEAN PLATELET VOLUME 8.7 fl (7.4-10.4); MONOCYTES % 9.3 % (2.0-8.0); NEUTROPHILS % 79.8 % (40.0-76.0); PLATELET 193 x1000/uL (130-400); RED BLOOD CELL COUNT 3.73 mill/uL (4.2-5.4); RED CELL DISTRIBUTION WIDTH 19.5 % (11.6-14.6)
[2018-11-09 07:04] LABS: INR 1.1; PARTIAL THROMBOPLASTIN TIME 35.8 sec (23.4-31.0); PROTHROMBIN TIME 11.1 sec (9.1-11.1)
[2018-11-09] MEDS ORDERED: MIDAZOLAM HCL 2 MG/2 ML VIAL ONE (07:37)
[2018-11-09] MEDS ORDERED: DIPHENHYDRAMINE 50MG/ML VIAL ONE (07:37)
[2018-11-09] MEDS ORDERED: FENTANYL CITRATE/PF 50MCG/ML 2ML VIAL ONE (07:37)
[2018-11-09] MEDS ORDERED: SODIUM CHLORIDE 0.9% 10ML VIAL ONE ×2 (07:46→08:01)
[2018-11-09] MEDS ORDERED: CEFAZOLIN SODIUM 1000MG/VIAL ONE (07:46)
[2018-11-09] MEDS ORDERED: HYDRALAZINE 20MG/ML VIAL ONE (08:01)
== END 2018-11-09 10:00 | disposition home or self-care (01) ==
LOC: OR 06:04
PROVIDERS: ATTEND Surgery Vascular Surgery
DX: I13.2 Hypertensive heart and chronic kidney disease with heart failure and with stage 5 chronic kidney disease, or end stage renal disease (principal); E11.22 Type 2 diabetes mellitus with diabetic chronic kidney disease; N18.6 End stage renal disease; I50.9 Heart failure, unspecified; Z99.2 Dependence on renal dialysis; I42.9 Cardiomyopathy, unspecified; Z86.73 Personal history of transient ischemic attack (TIA), and cerebral infarction without residual deficits; Z88.8 Allergy status to other drugs, medicaments and biological substances
CPT/HCPCS: 36415; 37607; 80048; 82962; 85025; 85610; 85730; 93005; A4216; J0360; J0690; J1200; J1644; J2250; J3010; J3490; J2440; J7040

== ENCOUNTER 2021-08-01 08:46 | Day surgery (SDC) | payer MEDICARE, MEDICAID ==
[~2021-08-01] VITALS: Ht 152.4 cm; Wt 51.7 kg
[~2021-08-01 08:46] MED LIST changes: -ATOR10TA69 PO; -CALC-30 MT; +CLOP-31 PO; -CLOP75TA16 PO; -CYCL30DR BOTHEYE; -DORZ10DR8 BOTHEYE; -FISH1CAP63 PO; +FOLI0.8T27 PO; -LINA5TAB PO; +NIFE30TA94 PO; -NIFE90TA34 PO; -OMEP20CA10 PO; +OMEP20CA14 PO; +PRAV10TA35 PO; -SEVE800T8 PO; -SODIUM CHLORIDE 0.9% 500 ML IV ONE
[2021-08-01] MEDS ORDERED: SODIUM BICARBONATE 4% (2.4MEQ) 5ML VIAL IV ONE (10:12)
== END 2021-08-01 15:50 | disposition home or self-care (01) ==
LOC: RAD 08:46
PROVIDERS: ATTEND Specialist
DX: J90 Pleural effusion, not elsewhere classified (principal); R06.02 Shortness of breath; J94.8 Other specified pleural conditions; I13.11 Hypertensive heart and chronic kidney disease without heart failure, with stage 5 chronic kidney disease, or end stage renal disease; N18.6 End stage renal disease; E78.5 Hyperlipidemia, unspecified; D64.9 Anemia, unspecified; Z86.73 Personal history of transient ischemic attack (TIA), and cerebral infarction without residual deficits; Z79.4 Long term (current) use of insulin; Z79.899 Other long term (current) drug therapy; Z98.890 Other specified postprocedural states; Z91.041 Radiographic dye allergy status; Z82.49 Family history of ischemic heart disease and other diseases of the circulatory system; Z83.3 Family history of diabetes mellitus
CPT/HCPCS: 32555; 71045; 82150; 82945; 83615; 84157; 84478; 87070; 87205; 87426; 88106; 88108; J3490

== ENCOUNTER → 2021-09-19 | Day surgery (SDC) | payer MEDICARE, MEDICAID ==
[~2021-09-19] MED LIST changes: -CLOP-31 PO; +SODIUM BICARBONATE 4% (2.4MEQ) 5ML VIAL IV ONE
== END | disposition home or self-care (01) ==
LOC: RAD 07:51
PROVIDERS: ATTEND Specialist
DX: J90 Pleural effusion, not elsewhere classified (principal); R06.02 Shortness of breath; J98.11 Atelectasis; I13.11 Hypertensive heart and chronic kidney disease without heart failure, with stage 5 chronic kidney disease, or end stage renal disease; N18.6 End stage renal disease; E78.5 Hyperlipidemia, unspecified; Z79.4 Long term (current) use of insulin; Z79.899 Other long term (current) drug therapy; Z98.890 Other specified postprocedural states; Z82.49 Family history of ischemic heart disease and other diseases of the circulatory system; Z20.822 Contact with and (suspected) exposure to COVID-19
CPT/HCPCS: 32555; 71045; 87426; J3490

== ENCOUNTER 2022-01-29 11:46 | Inpatient (IN) | payer MEDICARE, MEDICAID ==
[~2022-01-29] VITALS: Ht 150 cm; Wt 51.3 kg
[~2022-01-29 11:46] MED LIST changes: -SODIUM BICARBONATE 4% (2.4MEQ) 5ML VIAL IV ONE
[2022-01-29 15:35] VITALS: BP 182/63
[2022-01-29 15:45] VITALS: BP 182/63
[2022-01-29] MEDS ORDERED: MORPHINE SULFATE 2 MG/ML CPJ (NOT FOR IM USE) IV PRN (16:00)
[2022-01-29] MEDS ORDERED: CEFTRIAXONE 1 G PREMIX 50 ML IV SCH (16:00)
[2022-01-29] MEDS ORDERED: ACETAMINOPHEN 325MG TABLET PO PRN (16:00)
[2022-01-29] MEDS ORDERED: ONDANSETRON HCL 4MG/2ML INJ IV PRN (16:00)
[2022-01-29] MEDS ORDERED: ZOLPIDEM TARTRATE 5MG TABLET PO PRN (16:15)
[2022-01-29] MEDS ORDERED: NALOXONE HCL 0.4MG/ML VIAL IV PRN (16:15)
[2022-01-29] MEDS ORDERED: IPRATROPIUM/ALBUTEROL 0.5-3(2.5)MG/3ML NEB HHN PRN (17:00)
[2022-01-29] MEDS ORDERED: LOSA50TA41 MT (18:03)
[2022-01-29] MEDS ORDERED: MECL-159 PO (18:03)
[2022-01-29] MEDS ORDERED: PANT40TA51 MT (18:03)
[2022-01-29 18:04] LABS: BG CARBOXYHEMOGLOBIN 0.8 % (0.5-1.5); BG DEOXYHEMOGLOBIN 3.4 % (0.0-5.0); BG FRACTION INSPIRED OXYGEN 28; BG HCO3 ACT 25.6 mmol/L (22.0-26.0); BG OXYGEN SATURATION 96.6 % (92.0-98.5); BG OXYHEMOGLOBIN 95.8 % (94.0-97.0); BG PCO2 41.2 mmHg (35.0-45.0); BG PH 7.412 (7.350-7.450); BG PO2 110.6 mmHg (75.0-100.0); BG SAMPLE SITE RIGHT BRACHIAL; BG TOTAL HEMOGLOBIN 10.5 g/dL (12.0-18.0); BG VENT MODE NASAL CANNULA
[2022-01-29] MEDS ORDERED: DOCU-138 MT (18:07)
[2022-01-29] MEDS ORDERED: DORZ10DR17 OP (18:07)
[2022-01-29] MEDS ORDERED: LINA5TAB PO (18:07)
[2022-01-29] MEDS ORDERED: ATOR10TA69 MT (18:07)
[2022-01-29] MEDS ORDERED: CLONIDINE 0.1MG TABLET PO PRN (18:15)
[2022-01-29] MEDS: CEFTRIAXONE 1,000 MG in DEXTROSE 5% WATER 50 ML IV SCH (19:01)
[2022-01-29] MEDS: SEVELAMER CARBONATE 800 MG TABLET PO SCH (19:02)
[2022-01-29 19:46] LABS: INR 1.2; PROTHROMBIN TIME 12.7 sec (9.6-11.0)
[2022-01-29 20:00] VITALS: BP 148/58
[2022-01-29 20:09] LABS: CHLORIDE 98 mEq/L (98-107)
[2022-01-29] MEDS: ATORVASTATIN CALCIUM 10MG TABLET PO SCH (21:41)
[2022-01-29] MEDS: HYDRALAZINE HCL 50MG TABLET PO SCH (21:41)
[2022-01-29] MEDS: GABAPENTIN 100MG CAPSULE PO SCH (21:41)
[2022-01-29] MEDS: DORZOLAM/TIMOLOL 2.23/0.68% OPHTH DROPS 10ML EACHEYE SCH (21:41)
[2022-01-29] MEDS ORDERED: DEXTROSE 50% WATER 50ML SYRINGE IV PRN (22:30)
[2022-01-29] MEDS: INSULIN LISPRO 100 UNITS/ML SUBCUT SCH (22:55)
[2022-01-30] VITALS: BP 143/87
[2022-01-30 04:00] VITALS: BP 136/45
[2022-01-30] MEDS: PANTOPRAZOLE 40MG DR TABLET PO SCH (06:26)
[2022-01-30] MEDS: GABAPENTIN 100MG CAPSULE PO SCH ×3 (06:26→21:16)
[2022-01-30] MEDS: BLOOD SUGAR DIAGNOSTIC STRIP TEST SCH ×4 (06:28→21:18)
[2022-01-30] MEDS: HYDRALAZINE HCL 50MG TABLET PO SCH ×3 (06:28→21:18)
[2022-01-30] MEDS: INSULIN LISPRO 100 UNITS/ML SUBCUT SCH ×4 (07:34→21:00)
[2022-01-30] MEDS: SEVELAMER CARBONATE 800 MG TABLET PO SCH ×5 (07:34→18:00)
[2022-01-30 07:43] LABS: BASOPHILS % 0.4 % (0.0-2.0); HEMATOCRIT. 28.9 % (36.0-48.0); HEMOGLOBIN. 9.8 g/dL (12.0-16.0); MEAN CORPUSCULAR HEMOGLOBIN 33.9 pg (28.0-32.0); MEAN PLATELET VOLUME 8.2 fl (7.4-10.4); MONOCYTES % 12.4 % (2.0-8.0); NEUTROPHILS % 78.2 % (40.0-76.0); PLATELET 210 x1000/uL (130-400); RED BLOOD CELL COUNT 2.89 mill/uL (4.2-5.4); RED CELL DISTRIBUTION WIDTH 16.9 % (11.6-14.6)
[2022-01-30 08:00] VITALS: BP 133/47
[2022-01-30 08:05] LABS: CHLORIDE 100 mEq/L (98-107); CHLORIDE 97 mEq/L (98-107)
[2022-01-30 08:12] LABS: LDL CHOLESTEROL 34 mg/dL (5-100)
[2022-01-30 08:14] LABS: HDL CHOLESTEROL 45 mg/dL (40-59)
[2022-01-30] MEDS: LOSARTAN POTASSIUM 50 MG TABLET PO SCH (10:59)
[2022-01-30] MEDS: FOLIC ACID/VITAMIN B COMP W-C TABLET PO SCH (10:59)
[2022-01-30] MEDS: DOCUSATE SODIUM 100MG CAPSULE PO SCH (10:59)
[2022-01-30] MEDS: LINAGLIPTIN 5MG TABLET PO SCH (10:59)
[2022-01-30] MEDS: DORZOLAM/TIMOLOL 2.23/0.68% OPHTH DROPS 10ML EACHEYE SCH ×2 (11:00→21:15)
[2022-01-30] MEDS: TRAMADOL 50MG TABLET PO PRN ×2 (11:10→18:01)
[2022-01-30 11:56] LABS: HEPATITIS B SURFACE ANTIGEN NEGATIVE
[2022-01-30 12:00] VITALS: BP 143/52
[2022-01-30 16:00] VITALS: BP 129/49
[2022-01-30] MEDS: CEFTRIAXONE 1,000 MG in DEXTROSE 5% WATER 50 ML IV SCH (18:00)
[2022-01-30 20:00] VITALS: BP 133/67
[2022-01-30] MEDS: ATORVASTATIN CALCIUM 10MG TABLET PO SCH (21:16)
[2022-01-30] MEDS ORDERED: INSULIN LISPRO 100 UNITS/ML SUBCUT SCH (22:45)
[2022-01-31] VITALS: BP 149/50
[2022-01-31 01:23] LABS: PHOSPHORUS 3.1 mg/dL (2.5-4.9)
[2022-01-31 04:00] VITALS: BP 140/55
[2022-01-31] MEDS: HYDRALAZINE HCL 50MG TABLET PO SCH ×3 (06:02→21:16)
[2022-01-31] MEDS: GABAPENTIN 100MG CAPSULE PO SCH ×3 (06:02→21:16)
[2022-01-31] MEDS: BLOOD SUGAR DIAGNOSTIC STRIP TEST SCH ×4 (06:34→21:16)
[2022-01-31] MEDS: PANTOPRAZOLE 40MG DR TABLET PO SCH (06:34)
[2022-01-31] MEDS: INSULIN LISPRO 100 UNITS/ML SUBCUT SCH ×4 (07:46→21:00)
[2022-01-31 08:00] VITALS: BP 153/48
[2022-01-31] MEDS: FOLIC ACID/VITAMIN B COMP W-C TABLET PO SCH (08:41)
[2022-01-31] MEDS: LOSARTAN POTASSIUM 50 MG TABLET PO SCH (08:41)
[2022-01-31] MEDS: DOCUSATE SODIUM 100MG CAPSULE PO SCH (08:41)
[2022-01-31] MEDS: SEVELAMER CARBONATE 800 MG TABLET PO SCH ×3 (08:41→17:32)
[2022-01-31] MEDS: LINAGLIPTIN 5MG TABLET PO SCH (08:42)
[2022-01-31] MEDS: DORZOLAM/TIMOLOL 2.23/0.68% OPHTH DROPS 10ML EACHEYE SCH ×2 (08:43→21:17)
[2022-01-31 10:40] LABS: HEMATOCRIT. 28.3 % (36.0-48.0); HEMOGLOBIN. 9.4 g/dL (12.0-16.0); MEAN CORPUSCULAR HEMOGLOBIN 33.9 pg (28.0-32.0); MEAN CORPUSCULAR VOLUME 101.9 fL (81.0-99.0); MEAN PLATELET VOLUME 8.8 fl (7.4-10.4); PLATELET 204 x1000/uL (130-400); RED BLOOD CELL COUNT 2.78 mill/uL (4.2-5.4); RED CELL DISTRIBUTION WIDTH 16.9 % (11.6-14.6)
[2022-01-31 11:13] LABS: PLATELET ESTIMATE NORMAL
[2022-01-31 12:00] VITALS: BP 120/48
[2022-01-31] MEDS: TRAMADOL 50MG TABLET PO PRN (13:04)
[2022-01-31 16:00] VITALS: BP 156/50
[2022-01-31] MEDS: CEFTRIAXONE 1,000 MG in DEXTROSE 5% WATER 50 ML IV SCH (18:17)
[2022-01-31 20:00] VITALS: BP 151/49
[2022-01-31] MEDS: ATORVASTATIN CALCIUM 10MG TABLET PO SCH (21:16)
[2022-02-01] VITALS: BP 126/52
[2022-02-01 04:00] VITALS: BP 153/40
[2022-02-01] MEDS: HYDRALAZINE HCL 50MG TABLET PO SCH ×3 (05:13→21:06)
[2022-02-01] MEDS: GABAPENTIN 100MG CAPSULE PO SCH ×3 (05:13→21:05)
[2022-02-01] MEDS: PANTOPRAZOLE 40MG DR TABLET PO SCH (06:22)
[2022-02-01] MEDS: BLOOD SUGAR DIAGNOSTIC STRIP TEST SCH ×4 (07:01→21:04)
[2022-02-01] MEDS: INSULIN LISPRO 100 UNITS/ML SUBCUT SCH ×4 (07:50→21:00)
[2022-02-01 08:18] VITALS: BP 146/38
[2022-02-01] MEDS: DORZOLAM/TIMOLOL 2.23/0.68% OPHTH DROPS 10ML EACHEYE SCH (08:25)
[2022-02-01] MEDS: LINAGLIPTIN 5MG TABLET PO SCH (08:25)
[2022-02-01] MEDS: SEVELAMER CARBONATE 800 MG TABLET PO SCH ×3 (08:25→17:50)
[2022-02-01] MEDS: DOCUSATE SODIUM 100MG CAPSULE PO SCH (08:25)
[2022-02-01] MEDS: LOSARTAN POTASSIUM 50 MG TABLET PO SCH (08:25)
[2022-02-01] MEDS: FOLIC ACID/VITAMIN B COMP W-C TABLET PO SCH (08:25)
[2022-02-01] MEDS ORDERED: FUROSEMIDE 40MG/4ML VIAL IVP NR (10:45)
[2022-02-01 11:30] LABS: BG BASE EXCESS -0.7 mmol/L (-2.0-2.0); BG CARBOXYHEMOGLOBIN 1.6 % (0.5-1.5); BG DEOXYHEMOGLOBIN 5.9 % (0.0-5.0); BG FRACTION INSPIRED OXYGEN 21; BG HCO3 ACT 25.6 mmol/L (22.0-26.0); BG METHEMOGLOBIN 0.1 % (0.0-1.5); BG OXYHEMOGLOBIN 92.4 % (94.0-97.0); BG PCO2 50.1 mmHg (35.0-45.0); BG PH 7.327 (7.350-7.450); BG SAMPLE SITE RIGHT RADIAL; BG TOTAL HEMOGLOBIN 10.1 g/dL (12.0-18.0); BG VENT MODE ROOM AIR
[2022-02-01 12:00] VITALS: BP 143/39
[2022-02-01 12:36] LABS: HEMOGLOBIN. 9.9 g/dL (12.0-16.0); MEAN CORPUSCULAR HEMOGLOBIN 33.9 pg (28.0-32.0); MEAN CORPUSCULAR VOLUME 102.9 fL (81.0-99.0); MEAN PLATELET VOLUME 8.5 fl (7.4-10.4); PLATELET 208 x1000/uL (130-400); RED BLOOD CELL COUNT 2.91 mill/uL (4.2-5.4); RED CELL DISTRIBUTION WIDTH 16.7 % (11.6-14.6)
[2022-02-01 16:00] VITALS: BP 151/52
[2022-02-01] MEDS: CEFTRIAXONE 1,000 MG in DEXTROSE 5% WATER 50 ML IV SCH (18:13)
[2022-02-01 20:00] VITALS: BP 160/68
[2022-02-01] MEDS: ATORVASTATIN CALCIUM 10MG TABLET PO SCH (21:05)
[2022-02-01] MEDS: AMLODIPINE 5MG TABLET PO SCH (21:06)
[2022-02-02] VITALS: BP 142/48
[2022-02-02 04:00] VITALS: BP 148/53
[2022-02-02 04:58] LABS: PLATELET ESTIMATE NORMAL
[2022-02-02] MEDS: PANTOPRAZOLE 40MG DR TABLET PO SCH (06:35)
[2022-02-02] MEDS: HYDRALAZINE HCL 50MG TABLET PO SCH (06:35)
[2022-02-02] MEDS: SEVELAMER CARBONATE 800 MG TABLET PO SCH (06:35)
[2022-02-02] MEDS: GABAPENTIN 100MG CAPSULE PO SCH (06:35)
[2022-02-02] MEDS: BLOOD SUGAR DIAGNOSTIC STRIP TEST SCH (06:49)
[2022-02-02] MEDS: INSULIN LISPRO 100 UNITS/ML SUBCUT SCH (06:49)
[2022-02-02 06:54] LABS: BASOPHILS % 0.5 % (0.0-2.0); HEMATOCRIT. 29.6 % (36.0-48.0); HEMOGLOBIN. 9.6 g/dL (12.0-16.0); LYMPHOCYTES % 7.8 % (20.0-50.0); MEAN CORPUSCULAR HEMOGLOBIN 33.5 pg (28.0-32.0); MEAN CORPUSCULAR VOLUME 103.3 fL (81.0-99.0); MEAN PLATELET VOLUME 8.6 fl (7.4-10.4); NEUTROPHILS % 82.7 % (40.0-76.0); PLATELET 218 x1000/uL (130-400); RED BLOOD CELL COUNT 2.87 mill/uL (4.2-5.4); RED CELL DISTRIBUTION WIDTH 16.9 % (11.6-14.6)
[2022-02-02 08:00] VITALS: BP 162/60
[2022-02-02] MEDS: DOCUSATE SODIUM 100MG CAPSULE PO SCH (09:00)
[2022-02-02] MEDS: AMLODIPINE 5MG TABLET PO SCH (09:00)
[2022-02-02] MEDS: LINAGLIPTIN 5MG TABLET PO SCH (09:00)
[2022-02-02] MEDS: FOLIC ACID/VITAMIN B COMP W-C TABLET PO SCH (09:00)
[2022-02-02 11:08] VITALS: BP 162/60
== END 2022-02-02 13:55 | disposition home or self-care (01) | DRG 682 ==
LOC: 6WST 11:46
PROVIDERS: ADMIT Specialist; ATTEND Internal Medicine Nephrology
PROC: 0W9B3ZZ Drainage of Left Pleural Cavity, Percutaneous Approach (ICD-10-PCS; principal; 2022-01-30)
PROC: 5A1D70Z Performance of Urinary Filtration, Intermittent, Less than 6 Hours Per Day (ICD-10-PCS; 2022-01-31)
DX: I13.11 Hypertensive heart and chronic kidney disease without heart failure, with stage 5 chronic kidney disease, or end stage renal disease (principal); J96.01 Acute respiratory failure with hypoxia; N18.6 End stage renal disease; J91.8 Pleural effusion in other conditions classified elsewhere; E46 Unspecified protein-calorie malnutrition; J84.9 Interstitial pulmonary disease, unspecified; E11.22 Type 2 diabetes mellitus with diabetic chronic kidney disease; Z96.1 Presence of intraocular lens; D64.9 Anemia, unspecified; D72.825 Bandemia; E11.51 Type 2 diabetes mellitus with diabetic peripheral angiopathy without gangrene; E78.00 Pure hypercholesterolemia, unspecified; I35.1 Nonrheumatic aortic (valve) insufficiency; Z20.822 Contact with and (suspected) exposure to COVID-19; E78.5 Hyperlipidemia, unspecified; I70.90 Unspecified atherosclerosis; I65.29 Occlusion and stenosis of unspecified carotid artery; Z79.4 Long term (current) use of insulin; Z79.84 Long term (current) use of oral hypoglycemic drugs; Z79.899 Other long term (current) drug therapy; Z80.0 Family history of malignant neoplasm of digestive organs; Z82.49 Family history of ischemic heart disease and other diseases of the circulatory system; Z83.3 Family history of diabetes mellitus; Z86.73 Personal history of transient ischemic attack (TIA), and cerebral infarction without residual deficits; Z99.2 Dependence on renal dialysis; Z90.711 Acquired absence of uterus with remaining cervical stump; Z98.41 Cataract extraction status, right eye; Z98.42 Cataract extraction status, left eye; Z68.22 Body mass index [BMI] 22.0-22.9, adult
CPT/HCPCS: 32555; 36415; 36600; 71045; 76604; 80048; 80053; 80061; 82040; 82375; 82805; 82962; 83036; 83615; 83735; 83986; 84100; 84443; 84484; 85025; 86705; 86709; 86803; 87340; 87426; 93005; 93306; 93970; C1893; J0696; J1815; J7040; J7060

== ENCOUNTER 2022-02-20 18:50 | Inpatient (IN) | payer MEDICARE, MEDICAID ==
[~2022-02-20] VITALS: Ht 152.4 cm; Wt 44.9 kg
[~2022-02-20 18:50] MED LIST changes: +ANTIVERT PO; +ATOR10TA69 MT; +DOCU-138 MT; +DORZ10DR17 OP; -DOXA8TAB81 PO; +GLARGINE SQ; -INSU300I3 SQ; +LINA5TAB PO; +LOSA50TA41 MT; -METO25TA6 PO; +NEPHROVITE PO; -NIFE30TA94 PO; -OMEP20CA14 PO; -PRAV10TA35 PO; +PROT40 PO; +VIT B12 PO
[2022-02-20] MEDS ORDERED: VANCOMYCIN HCL 1 GM/VIAL PO SCH (19:30)
[2022-02-20 19:59] LABS: HEMATOCRIT. 34.7 % (36.0-48.0); HEMOGLOBIN. 11.2 g/dL (12.0-16.0); MEAN CORPUSCULAR HEMOGLOBIN 31.5 pg (28.0-32.0); MEAN CORPUSCULAR VOLUME 97.9 fL (81.0-99.0); MEAN PLATELET VOLUME 9.6 fl (7.4-10.4); PLATELET 264 x1000/uL (130-400); RED BLOOD CELL COUNT 3.54 mill/uL (4.2-5.4); RED CELL DISTRIBUTION WIDTH 16.3 % (11.6-14.6)
[2022-02-20 20:07] LABS: CHLORIDE 92 mEq/L (98-107)
[2022-02-20] MEDS ORDERED: POTASSIUM CHLORIDE 20MEQ TABLET SR PO NR (20:15)
[2022-02-20 20:28] LABS: PLATELET ESTIMATE NORMAL
[2022-02-20] MEDS ORDERED: VANCOMYCIN 1000MG/20ML ORAL SOLN PO NR (20:45)
[2022-02-20] MEDS ORDERED: PIPERACILLIN/TAZOBACTAM 3.375GM/50ML PREMIX IV ONE (21:30)
[2022-02-20] MEDS ORDERED: PIPERACILLIN/TAZ 3.375G PREMIX 50 ML IV NR (21:45)
[2022-02-20] MEDS ORDERED: METRONIDAZOLE 500 MG PREMIX 100 ML IV ONE (23:00)
[2022-02-21] MEDS ORDERED: MORPHINE SULFATE 2 MG/ML CPJ (NOT FOR IM USE) IV ONE (02:30)
[2022-02-21] MEDS ORDERED: DEXT 5%/0.45% NACL 1000ML 1,000 ML IV SCH (08:45)
[2022-02-21] MEDS ORDERED: DOCUSATE SODIUM 100MG CAPSULE PO PRN (09:45)
[2022-02-21] MEDS ORDERED: GUAIFENESIN 200MG/10ML SUGAR FREE UDC PO PRN (09:45)
[2022-02-21] MEDS ORDERED: DEXTROSE 50% WATER 50ML SYRINGE IV PRN (09:45)
[2022-02-21] MEDS ORDERED: ACETAMINOPHEN 325MG TABLET PO PRN (09:45)
[2022-02-21] MEDS ORDERED: LORAZEPAM 2MG/ML CPJ IV PRN (09:45)
[2022-02-21] MEDS ORDERED: ONDANSETRON HCL 4MG/2ML INJ IV PRN (09:45)
[2022-02-21] MEDS ORDERED: CLONIDINE 0.1MG TABLET PO PRN (09:45)
[2022-02-21] MEDS ORDERED: IPRATROPIUM/ALBUTEROL 0.5-3(2.5)MG/3ML NEB HHN PRN (09:45)
[2022-02-21] MEDS ORDERED: MAGNESIUM/ALUMINUM HYDROXIDE/SIMETHICONE 30ML UDC PO PRN (09:45)
[2022-02-21] MEDS ORDERED: HYDROCODONE/ACETAMINOPHEN 5/325MG TABLET PO PRN (09:45)
[2022-02-21] MEDS ORDERED: CEFTRIAXONE 1 G PREMIX 50 ML IV SCH (09:45)
[2022-02-21] MEDS ORDERED: DIPHENHYDRAMINE 50MG/ML VIAL IV PRN (09:45)
[2022-02-21] MEDS ORDERED: HYDRALAZINE 20MG/ML VIAL IV PRN (09:45)
[2022-02-21 12:00] VITALS: BP 115/34
[2022-02-21] MEDS ORDERED: CEFTRIAXONE 1,000 MG in DEXTROSE 5% WATER 50 ML IV SCH (12:00)
[2022-02-21] MEDS: BLOOD SUGAR DIAGNOSTIC STRIP TEST SCH ×3 (12:43→21:06)
[2022-02-21] MEDS: INSULIN LISPRO 100 UNITS/ML SUBCUT SCH ×3 (12:43→21:06)
[2022-02-21] MEDS: ENOXAPARIN 30MG/0.3ML SYR SUBCUT SCH (12:47)
[2022-02-21] MEDS ORDERED: INSU100I24 SQ (13:00)
[2022-02-21] MEDS: MORPHINE SULFATE 2 MG/ML CPJ (NOT FOR IM USE) IV PRN (13:28)
[2022-02-21] MEDS: SODIUM CHLORIDE 0.9% INJ 3ML FLUSH IVF SCH ×2 (13:30→21:05)
[2022-02-21 14:46] VITALS: BP 115/34
[2022-02-21] MEDS ORDERED: NALOXONE HCL 0.4MG/ML VIAL IV PRN (15:30)
[2022-02-21] MEDS: NYSTATIN 100,000 UNITS/ML 5ML UDC SSW SCH ×2 (15:33→21:06)
[2022-02-21 16:08] VITALS: BP 134/51
[2022-02-21 16:26] LABS: HEPATITIS B SURFACE ANTIGEN NEGATIVE
[2022-02-21 20:00] VITALS: BP 130/50
[2022-02-22] VITALS: BP 123/49
[2022-02-22 04:00] VITALS: BP 130/55
[2022-02-22 05:14] VITALS: BP 130/55
[2022-02-22] MEDS: SODIUM CHLORIDE 0.9% INJ 3ML FLUSH IVF SCH ×3 (05:55→21:38)
[2022-02-22] MEDS: NYSTATIN 100,000 UNITS/ML 5ML UDC SSW SCH ×3 (05:55→21:38)
[2022-02-22 06:04] LABS: HEMATOCRIT. 30.5 % (36.0-48.0); HEMOGLOBIN. 9.8 g/dL (12.0-16.0); MEAN CORPUSCULAR HEMOGLOBIN 31.5 pg (28.0-32.0); MEAN CORPUSCULAR VOLUME 98.5 fL (81.0-99.0); MEAN PLATELET VOLUME 9.9 fl (7.4-10.4); PLATELET 258 x1000/uL (130-400); RED CELL DISTRIBUTION WIDTH 16.6 % (11.6-14.6)
[2022-02-22 06:09] LABS: CHLORIDE 103 mEq/L (98-107)
[2022-02-22 06:20] LABS: PHOSPHORUS 2.7 mg/dL (2.5-4.9)
[2022-02-22] MEDS: BLOOD SUGAR DIAGNOSTIC STRIP TEST SCH ×4 (07:20→20:37)
[2022-02-22] MEDS: INSULIN LISPRO 100 UNITS/ML SUBCUT SCH ×4 (07:50→20:38)
[2022-02-22 08:00] VITALS: BP 130/45
[2022-02-22] MEDS: ENOXAPARIN 30MG/0.3ML SYR SUBCUT SCH (09:52)
[2022-02-22 12:00] VITALS: BP 139/50
[2022-02-22] MEDS: VANCOMYCIN 1000MG/20ML ORAL SOLN PO SCH ×3 (14:05→21:38)
[2022-02-22] MEDS: MORPHINE SULFATE 2 MG/ML CPJ (NOT FOR IM USE) IV PRN (15:10)
[2022-02-22 15:11] LABS: PLATELET ESTIMATE NORMAL
[2022-02-22 20:00] VITALS: BP 132/45
[2022-02-23] VITALS: BP 158/52
[2022-02-23 04:00] VITALS: BP 153/50
[2022-02-23 05:30] LABS: HEMATOCRIT. 29.8 % (36.0-48.0); HEMOGLOBIN. 9.4 g/dL (12.0-16.0); MEAN CORPUSCULAR HEMOGLOBIN 31.1 pg (28.0-32.0); MEAN CORPUSCULAR VOLUME 98.5 fL (81.0-99.0); MEAN PLATELET VOLUME 9.6 fl (7.4-10.4); PLATELET 290 x1000/uL (130-400); RED BLOOD CELL COUNT 3.02 mill/uL (4.2-5.4); RED CELL DISTRIBUTION WIDTH 16.3 % (11.6-14.6)
[2022-02-23] MEDS: SODIUM CHLORIDE 0.9% INJ 3ML FLUSH IVF SCH ×3 (06:07→22:21)
[2022-02-23] MEDS: NYSTATIN 100,000 UNITS/ML 5ML UDC SSW SCH ×3 (06:07→22:37)
[2022-02-23] MEDS: BLOOD SUGAR DIAGNOSTIC STRIP TEST SCH ×4 (07:20→21:29)
[2022-02-23 08:00] VITALS: BP 161/53
[2022-02-23] MEDS: ENOXAPARIN 30MG/0.3ML SYR SUBCUT SCH (09:28)
[2022-02-23] MEDS: VANCOMYCIN 1000MG/20ML ORAL SOLN PO SCH ×4 (09:28→22:20)
[2022-02-23] MEDS: INSULIN LISPRO 100 UNITS/ML SUBCUT SCH ×4 (09:29→22:37)
[2022-02-23] MEDS ORDERED: AMLODIPINE 5MG TABLET PO SCH (10:00)
[2022-02-23] MEDS ORDERED: LOSARTAN POTASSIUM 50 MG TABLET PO SCH (10:00)
[2022-02-23] MEDS: HYDRALAZINE HCL 50MG TABLET PO SCH ×3 (10:50→22:40)
[2022-02-23 11:46] LABS: PLATELET ESTIMATE NORMAL
[2022-02-23 12:00] VITALS: BP 133/51
[2022-02-23] MEDS ORDERED: HYDRALAZINE HCL 50MG TABLET PO SCH (14:00)
[2022-02-23 16:00] VITALS: BP 164/69
[2022-02-23 20:00] VITALS: BP 120/43
[2022-02-23] MEDS: LOSARTAN POTASSIUM 50 MG TABLET PO SCH (22:21)
[2022-02-24] VITALS: BP 125/42
[2022-02-24 04:00] VITALS: BP 146/51
[2022-02-24 06:11] LABS: HEMATOCRIT. 29.1 % (36.0-48.0); HEMOGLOBIN. 9.4 g/dL (12.0-16.0); MEAN CORPUSCULAR HEMOGLOBIN 31.5 pg (28.0-32.0); MEAN CORPUSCULAR VOLUME 97.9 fL (81.0-99.0); MEAN PLATELET VOLUME 9.5 fl (7.4-10.4); PLATELET 278 x1000/uL (130-400); RED BLOOD CELL COUNT 2.98 mill/uL (4.2-5.4); RED CELL DISTRIBUTION WIDTH 16.2 % (11.6-14.6)
[2022-02-24] MEDS: NYSTATIN 100,000 UNITS/ML 5ML UDC SSW SCH ×3 (06:11→21:20)
[2022-02-24] MEDS: SODIUM CHLORIDE 0.9% INJ 3ML FLUSH IVF SCH ×3 (06:12→22:00)
[2022-02-24] MEDS: HYDRALAZINE HCL 50MG TABLET PO SCH ×3 (06:20→21:18)
[2022-02-24] MEDS: BLOOD SUGAR DIAGNOSTIC STRIP TEST SCH ×4 (07:25→21:28)
[2022-02-24] MEDS: INSULIN LISPRO 100 UNITS/ML SUBCUT SCH ×4 (07:35→21:35)
[2022-02-24 08:00] VITALS: BP 122/47
[2022-02-24] MEDS: ENOXAPARIN 30MG/0.3ML SYR SUBCUT SCH (08:54)
[2022-02-24] MEDS: VANCOMYCIN 1000MG/20ML ORAL SOLN PO SCH ×4 (08:55→21:21)
[2022-02-24] MEDS ORDERED: HYDRALAZINE HCL 50MG TABLET PO SCH (09:45)
[2022-02-24] MEDS: FOLIC ACID/VITAMIN B COMP W-C TABLET PO SCH (10:24)
[2022-02-24] MEDS: PANTOPRAZOLE 40MG DR TABLET PO SCH (10:24)
[2022-02-24] MEDS: LINAGLIPTIN 5MG TABLET PO SCH (11:31)
[2022-02-24 12:00] VITALS: BP 124/46
[2022-02-24 13:49] LABS: PLATELET ESTIMATE NORMAL
[2022-02-24 16:00] VITALS: BP 128/48
[2022-02-24 20:00] VITALS: BP 133/51
[2022-02-24] MEDS: ATORVASTATIN CALCIUM 10MG TABLET PO SCH (21:19)
[2022-02-24] MEDS: LOSARTAN POTASSIUM 50 MG TABLET PO SCH (21:20)
[2022-02-25] VITALS: BP 130/54
[2022-02-25 04:00] VITALS: BP 148/68
[2022-02-25] MEDS: SODIUM CHLORIDE 0.9% INJ 3ML FLUSH IVF SCH ×3 (06:29→22:10)
[2022-02-25 06:34] LABS: HEMATOCRIT. 30.4 % (36.0-48.0); HEMOGLOBIN. 9.5 g/dL (12.0-16.0); MEAN CORPUSCULAR HEMOGLOBIN 30.8 pg (28.0-32.0); MEAN CORPUSCULAR VOLUME 98.3 fL (81.0-99.0); MEAN PLATELET VOLUME 8.6 fl (7.4-10.4); PLATELET 291 x1000/uL (130-400); RED BLOOD CELL COUNT 3.09 mill/uL (4.2-5.4); RED CELL DISTRIBUTION WIDTH 16.1 % (11.6-14.6)
[2022-02-25] MEDS: HYDRALAZINE HCL 50MG TABLET PO SCH ×3 (06:36→22:10)
[2022-02-25] MEDS: NYSTATIN 100,000 UNITS/ML 5ML UDC SSW SCH ×3 (06:36→22:09)
[2022-02-25] MEDS: BLOOD SUGAR DIAGNOSTIC STRIP TEST SCH ×4 (07:20→21:00)
[2022-02-25] MEDS: INSULIN LISPRO 100 UNITS/ML SUBCUT SCH ×4 (07:50→22:12)
[2022-02-25 08:10] VITALS: BP 145/55
[2022-02-25] MEDS: ENOXAPARIN 30MG/0.3ML SYR SUBCUT SCH (09:34)
[2022-02-25] MEDS: FOLIC ACID/VITAMIN B COMP W-C TABLET PO SCH (09:34)
[2022-02-25] MEDS: LINAGLIPTIN 5MG TABLET PO SCH (09:34)
[2022-02-25] MEDS: PANTOPRAZOLE 40MG DR TABLET PO SCH (09:34)
[2022-02-25] MEDS: VANCOMYCIN 1000MG/20ML ORAL SOLN PO SCH ×4 (09:34→22:10)
[2022-02-25 12:30] VITALS: BP 138/50
[2022-02-25 14:12] LABS: PLATELET ESTIMATE NORMAL
[2022-02-25 16:30] VITALS: BP 133/55
[2022-02-25 20:00] VITALS: BP 151/51
[2022-02-25] MEDS: ATORVASTATIN CALCIUM 10MG TABLET PO SCH (22:09)
[2022-02-25] MEDS: LOSARTAN POTASSIUM 50 MG TABLET PO SCH (22:10)
[2022-02-26] VITALS: BP 134/40
[2022-02-26 04:00] VITALS: BP 145/51
[2022-02-26] MEDS: NYSTATIN 100,000 UNITS/ML 5ML UDC SSW SCH ×2 (05:36→14:24)
[2022-02-26] MEDS: SODIUM CHLORIDE 0.9% INJ 3ML FLUSH IVF SCH ×3 (05:37→22:41)
[2022-02-26] MEDS: BLOOD SUGAR DIAGNOSTIC STRIP TEST SCH ×4 (05:42→21:00)
[2022-02-26] MEDS: HYDRALAZINE HCL 50MG TABLET PO SCH ×3 (05:42→22:40)
[2022-02-26] MEDS: INSULIN LISPRO 100 UNITS/ML SUBCUT SCH ×4 (07:50→22:44)
[2022-02-26 08:11] VITALS: BP 116/40
[2022-02-26] MEDS: FOLIC ACID/VITAMIN B COMP W-C TABLET PO SCH (09:07)
[2022-02-26] MEDS: LINAGLIPTIN 5MG TABLET PO SCH (09:07)
[2022-02-26] MEDS: VANCOMYCIN 1000MG/20ML ORAL SOLN PO SCH ×4 (09:08→22:43)
[2022-02-26] MEDS: FAMOTIDINE 20MG TABLET PO SCH (09:08)
[2022-02-26 12:07] VITALS: BP 122/48
[2022-02-26] MEDS: ENOXAPARIN 30MG/0.3ML SYR SUBCUT SCH (12:49)
[2022-02-26 16:30] VITALS: BP 114/51
[2022-02-26 20:00] VITALS: BP 133/52
[2022-02-26] MEDS: ATORVASTATIN CALCIUM 10MG TABLET PO SCH (22:40)
[2022-02-26] MEDS: LOSARTAN POTASSIUM 50 MG TABLET PO SCH (22:40)
[2022-02-27] VITALS: BP 140/50
[2022-02-27 04:00] VITALS: BP 136/45
[2022-02-27 04:10] LABS: OVA & PARASITE EXAM Final report (.)
[2022-02-27] MEDS: SODIUM CHLORIDE 0.9% INJ 3ML FLUSH IVF SCH ×3 (05:22→21:16)
[2022-02-27] MEDS: HYDRALAZINE HCL 50MG TABLET PO SCH ×3 (05:27→21:19)
[2022-02-27] MEDS: BLOOD SUGAR DIAGNOSTIC STRIP TEST SCH ×4 (05:28→21:16)
[2022-02-27 07:25] LABS: HEMATOCRIT. 31.9 % (36.0-48.0); HEMOGLOBIN. 10.2 g/dL (12.0-16.0); MEAN CORPUSCULAR HEMOGLOBIN 31.9 pg (28.0-32.0); MEAN CORPUSCULAR VOLUME 99.8 fL (81.0-99.0); MEAN PLATELET VOLUME 9.2 fl (7.4-10.4); PLATELET 304 x1000/uL (130-400); RED BLOOD CELL COUNT 3.19 mill/uL (4.2-5.4)
[2022-02-27] MEDS: INSULIN LISPRO 100 UNITS/ML SUBCUT SCH ×4 (07:27→21:16)
[2022-02-27 08:06] VITALS: BP 136/50
[2022-02-27 09:00] LABS: PLATELET ESTIMATE NORMAL
[2022-02-27] MEDS: FOLIC ACID/VITAMIN B COMP W-C TABLET PO SCH (09:14)
[2022-02-27] MEDS: LINAGLIPTIN 5MG TABLET PO SCH (09:14)
[2022-02-27] MEDS: VANCOMYCIN 1000MG/20ML ORAL SOLN PO SCH ×3 (09:14→16:26)
[2022-02-27] MEDS: FAMOTIDINE 20MG TABLET PO SCH (09:14)
[2022-02-27] MEDS: ENOXAPARIN 30MG/0.3ML SYR SUBCUT SCH (09:15)
[2022-02-27 12:15] VITALS: BP 108/68
[2022-02-27 16:20] VITALS: BP 132/48
[2022-02-27 20:00] VITALS: BP 134/59
[2022-02-27] MEDS: LOSARTAN POTASSIUM 50 MG TABLET PO SCH (21:16)
[2022-02-27] MEDS: ATORVASTATIN CALCIUM 10MG TABLET PO SCH (21:16)
[2022-02-28] VITALS: BP 120/65
[2022-02-28 04:00] VITALS: BP 135/55
[2022-02-28] MEDS: HYDRALAZINE HCL 50MG TABLET PO SCH ×4 (06:00→22:58)
[2022-02-28] MEDS: SODIUM CHLORIDE 0.9% INJ 3ML FLUSH IVF SCH ×3 (06:17→22:58)
[2022-02-28] MEDS: BLOOD SUGAR DIAGNOSTIC STRIP TEST SCH ×4 (06:36→20:13)
[2022-02-28 07:20] LABS: HEMATOCRIT. 33.3 % (36.0-48.0); HEMOGLOBIN. 10.7 g/dL (12.0-16.0); MEAN CORPUSCULAR HEMOGLOBIN 31.8 pg (28.0-32.0); MEAN CORPUSCULAR VOLUME 98.7 fL (81.0-99.0); MEAN PLATELET VOLUME 8.9 fl (7.4-10.4); PLATELET 294 x1000/uL (130-400); RED BLOOD CELL COUNT 3.37 mill/uL (4.2-5.4); RED CELL DISTRIBUTION WIDTH 15.8 % (11.6-14.6)
[2022-02-28] MEDS: INSULIN LISPRO 100 UNITS/ML SUBCUT SCH ×4 (07:50→20:13)
[2022-02-28 08:26] VITALS: BP 134/43
[2022-02-28] MEDS: FAMOTIDINE 20MG TABLET PO SCH (08:59)
[2022-02-28] MEDS: LINAGLIPTIN 5MG TABLET PO SCH (08:59)
[2022-02-28] MEDS: FOLIC ACID/VITAMIN B COMP W-C TABLET PO SCH (08:59)
[2022-02-28] MEDS: ENOXAPARIN 30MG/0.3ML SYR SUBCUT SCH (09:00)
[2022-02-28 11:55] VITALS: BP 142/54
[2022-02-28 12:16] LABS: ATYPICAL LYMPHOCYTES 1; PLATELET ESTIMATE NORMAL
[2022-02-28 16:01] VITALS: BP 124/48
[2022-02-28] MEDS: VANCOMYCIN 1000MG/20ML ORAL SOLN PO SCH ×2 (18:27→23:00)
[2022-02-28 20:00] VITALS: BP 159/61
[2022-02-28] MEDS: LOSARTAN POTASSIUM 50 MG TABLET PO SCH (20:13)
[2022-02-28] MEDS: ATORVASTATIN CALCIUM 10MG TABLET PO SCH (20:13)
[2022-03-01] VITALS (7 sets, daily range): BP systolic 111–156; BP diastolic 50–65
[2022-03-01] MEDS: HYDRALAZINE HCL 50MG TABLET PO SCH ×3 (06:05→21:00)
[2022-03-01] MEDS: SODIUM CHLORIDE 0.9% INJ 3ML FLUSH IVF SCH ×3 (06:06→20:57)
[2022-03-01] MEDS: VANCOMYCIN 1000MG/20ML ORAL SOLN PO SCH ×4 (06:06→23:52)
[2022-03-01] MEDS: BLOOD SUGAR DIAGNOSTIC STRIP TEST SCH ×4 (06:23→20:42)
[2022-03-01] MEDS: INSULIN LISPRO 100 UNITS/ML SUBCUT SCH ×4 (07:50→20:56)
[2022-03-01 08:00] LABS: HEMATOCRIT. 31.8 % (36.0-48.0); HEMOGLOBIN. 10.2 g/dL (12.0-16.0); MEAN CORPUSCULAR HEMOGLOBIN 31.3 pg (28.0-32.0); MEAN CORPUSCULAR VOLUME 97.8 fL (81.0-99.0); PLATELET 293 x1000/uL (130-400); RED BLOOD CELL COUNT 3.25 mill/uL (4.2-5.4); RED CELL DISTRIBUTION WIDTH 15.9 % (11.6-14.6)
[2022-03-01 08:36] LABS: PLATELET ESTIMATE NORMAL
[2022-03-01] MEDS: FOLIC ACID/VITAMIN B COMP W-C TABLET PO SCH (08:41)
[2022-03-01] MEDS: FAMOTIDINE 20MG TABLET PO SCH (08:41)
[2022-03-01] MEDS: LINAGLIPTIN 5MG TABLET PO SCH (08:41)
[2022-03-01] MEDS: ENOXAPARIN 30MG/0.3ML SYR SUBCUT SCH (08:46)
[2022-03-01] MEDS: ATORVASTATIN CALCIUM 10MG TABLET PO SCH (20:42)
[2022-03-01] MEDS: LOSARTAN POTASSIUM 50 MG TABLET PO SCH (20:42)
[2022-03-02 04:00] VITALS: BP 151/55
[2022-03-02] MEDS: VANCOMYCIN 1000MG/20ML ORAL SOLN PO SCH ×4 (06:02→23:28)
[2022-03-02] MEDS: SODIUM CHLORIDE 0.9% INJ 3ML FLUSH IVF SCH ×3 (06:02→21:02)
[2022-03-02] MEDS: HYDRALAZINE HCL 50MG TABLET PO SCH ×3 (06:02→21:01)
[2022-03-02] MEDS: INSULIN LISPRO 100 UNITS/ML SUBCUT SCH ×4 (07:50→21:00)
[2022-03-02 07:58] LABS: HEMATOCRIT. 30.5 % (36.0-48.0); HEMOGLOBIN. 9.8 g/dL (12.0-16.0); MEAN CORPUSCULAR HEMOGLOBIN 30.9 pg (28.0-32.0); MEAN CORPUSCULAR VOLUME 96.2 fL (81.0-99.0); MEAN PLATELET VOLUME 9.2 fl (7.4-10.4); PLATELET 279 x1000/uL (130-400); RED BLOOD CELL COUNT 3.17 mill/uL (4.2-5.4); RED CELL DISTRIBUTION WIDTH 16.4 % (11.6-14.6)
[2022-03-02] MEDS: BLOOD SUGAR DIAGNOSTIC STRIP TEST SCH ×4 (07:59→21:01)
[2022-03-02 08:00] VITALS: BP 134/43
[2022-03-02 08:42] LABS: PLATELET ESTIMATE NORMAL
[2022-03-02] MEDS: FAMOTIDINE 20MG TABLET PO SCH (09:07)
[2022-03-02] MEDS: FOLIC ACID/VITAMIN B COMP W-C TABLET PO SCH (09:07)
[2022-03-02] MEDS: LINAGLIPTIN 5MG TABLET PO SCH (09:07)
[2022-03-02] MEDS: ENOXAPARIN 30MG/0.3ML SYR SUBCUT SCH (09:12)
[2022-03-02 12:00] VITALS: BP 125/51
[2022-03-02 16:00] VITALS: BP 135/53
[2022-03-02 20:00] VITALS: BP 121/82
[2022-03-02] MEDS: LOSARTAN POTASSIUM 50 MG TABLET PO SCH (21:01)
[2022-03-02] MEDS: ATORVASTATIN CALCIUM 10MG TABLET PO SCH (21:01)
[2022-03-03] VITALS: BP 155/56
[2022-03-03 04:00] VITALS: BP 166/61
[2022-03-03] MEDS: HYDRALAZINE HCL 50MG TABLET PO SCH ×3 (05:16→21:00)
[2022-03-03] MEDS: SODIUM CHLORIDE 0.9% INJ 3ML FLUSH IVF SCH ×3 (05:16→21:00)
[2022-03-03] MEDS: VANCOMYCIN 1000MG/20ML ORAL SOLN PO SCH ×4 (05:16→23:14)
[2022-03-03] MEDS: BLOOD SUGAR DIAGNOSTIC STRIP TEST SCH ×4 (06:23→20:59)
[2022-03-03 07:10] LABS: HEMATOCRIT. 29.8 % (36.0-48.0); HEMOGLOBIN. 9.5 g/dL (12.0-16.0); MEAN CORPUSCULAR HEMOGLOBIN 31.1 pg (28.0-32.0); MEAN CORPUSCULAR VOLUME 97.7 fL (81.0-99.0); MEAN PLATELET VOLUME 8.9 fl (7.4-10.4); PLATELET 268 x1000/uL (130-400); RED BLOOD CELL COUNT 3.05 mill/uL (4.2-5.4); RED CELL DISTRIBUTION WIDTH 16.3 % (11.6-14.6)
[2022-03-03] MEDS: INSULIN LISPRO 100 UNITS/ML SUBCUT SCH ×4 (07:28→21:05)
[2022-03-03 08:00] VITALS: BP 121/54
[2022-03-03] MEDS: FOLIC ACID/VITAMIN B COMP W-C TABLET PO SCH (09:08)
[2022-03-03] MEDS: LINAGLIPTIN 5MG TABLET PO SCH (09:08)
[2022-03-03] MEDS: ENOXAPARIN 30MG/0.3ML SYR SUBCUT SCH (09:08)
[2022-03-03] MEDS: FAMOTIDINE 20MG TABLET PO SCH (09:08)
[2022-03-03 11:58] LABS: PLATELET ESTIMATE NORMAL
[2022-03-03 12:00] VITALS: BP 142/58
[2022-03-03 16:00] VITALS: BP 158/58
[2022-03-03] MEDS: CHOLESTYRAMINE/SUCROSE 4G POWDER PACKET PO SCH (18:18)
[2022-03-03 20:00] VITALS: BP 143/92
[2022-03-03] MEDS: ATORVASTATIN CALCIUM 10MG TABLET PO SCH (20:59)
[2022-03-03] MEDS: LOSARTAN POTASSIUM 50 MG TABLET PO SCH (20:59)
[2022-03-03] MEDS: EPOETIN ALFA-EPBX 10,000 UNIT/ML VIAL SUBCUT SCH (20:59)
[2022-03-04] VITALS: BP 150/56
[2022-03-04] MEDS: SODIUM CHLORIDE 0.9% INJ 3ML FLUSH IVF SCH ×3 (05:52→22:59)
[2022-03-04] MEDS: VANCOMYCIN 1000MG/20ML ORAL SOLN PO SCH ×3 (05:53→18:26)
[2022-03-04] MEDS: HYDRALAZINE HCL 50MG TABLET PO SCH ×3 (05:53→22:58)
[2022-03-04 05:54] VITALS: BP 161/59
[2022-03-04] MEDS: BLOOD SUGAR DIAGNOSTIC STRIP TEST SCH ×4 (06:22→21:00)
[2022-03-04 07:42] VITALS: BP 157/58
[2022-03-04] MEDS: INSULIN LISPRO 100 UNITS/ML SUBCUT SCH ×4 (07:50→21:00)
[2022-03-04 08:57] LABS: HEMATOCRIT. 28.5 % (36.0-48.0); HEMOGLOBIN. 9.4 g/dL (12.0-16.0); MEAN CORPUSCULAR HEMOGLOBIN 31.7 pg (28.0-32.0); MEAN CORPUSCULAR VOLUME 96.4 fL (81.0-99.0); MEAN PLATELET VOLUME 8.6 fl (7.4-10.4); PLATELET 253 x1000/uL (130-400); RED BLOOD CELL COUNT 2.96 mill/uL (4.2-5.4); RED CELL DISTRIBUTION WIDTH 16.3 % (11.6-14.6)
[2022-03-04] MEDS: FOLIC ACID/VITAMIN B COMP W-C TABLET PO SCH (09:39)
[2022-03-04] MEDS: FAMOTIDINE 20MG TABLET PO SCH (09:39)
[2022-03-04] MEDS: LINAGLIPTIN 5MG TABLET PO SCH (09:39)
[2022-03-04] MEDS: CHOLESTYRAMINE/SUCROSE 4G POWDER PACKET PO SCH ×2 (09:39→18:26)
[2022-03-04] MEDS: ENOXAPARIN 30MG/0.3ML SYR SUBCUT SCH (09:40)
[2022-03-04 12:00] VITALS: BP 151/50
[2022-03-04 14:24] LABS: PLATELET ESTIMATE NORMAL
[2022-03-04 16:00] VITALS: BP 132/52
[2022-03-04 20:00] VITALS: BP 133/53
[2022-03-04] MEDS: HEMORRHOIDAL SUPP PR SCH (22:58)
[2022-03-04] MEDS: ATORVASTATIN CALCIUM 10MG TABLET PO SCH (22:58)
[2022-03-04] MEDS: PHENYLEPH/PRAMOXIN/GLYCR/PET RECTAL CREAM 26GM PR SCH (22:58)
[2022-03-04] MEDS: LOSARTAN POTASSIUM 50 MG TABLET PO SCH (22:58)
[2022-03-05] VITALS: BP 125/61
[2022-03-05] MEDS: PHENYLEPH/PRAMOXIN/GLYCR/PET RECTAL CREAM 26GM PR SCH ×4 (00:53→18:30)
[2022-03-05] MEDS: VANCOMYCIN 1000MG/20ML ORAL SOLN PO SCH ×4 (00:53→18:30)
[2022-03-05 04:00] VITALS: BP 166/57
[2022-03-05] MEDS: HYDRALAZINE HCL 50MG TABLET PO SCH ×3 (06:00→21:01)
[2022-03-05] MEDS: BLOOD SUGAR DIAGNOSTIC STRIP TEST SCH ×4 (07:01→21:01)
[2022-03-05] MEDS: SODIUM CHLORIDE 0.9% INJ 3ML FLUSH IVF SCH ×3 (07:05→21:01)
[2022-03-05 07:38] LABS: HEMATOCRIT. 28.6 % (36.0-48.0); HEMOGLOBIN. 9.3 g/dL (12.0-16.0); MEAN CORPUSCULAR HEMOGLOBIN 31.1 pg (28.0-32.0); MEAN CORPUSCULAR VOLUME 95.9 fL (81.0-99.0); MEAN PLATELET VOLUME 8.5 fl (7.4-10.4); PLATELET 250 x1000/uL (130-400); RED BLOOD CELL COUNT 2.98 mill/uL (4.2-5.4); RED CELL DISTRIBUTION WIDTH 16.5 % (11.6-14.6)
[2022-03-05] MEDS: INSULIN LISPRO 100 UNITS/ML SUBCUT SCH ×4 (07:50→21:00)
[2022-03-05 08:00] VITALS: BP 115/71
[2022-03-05] MEDS: HEMORRHOIDAL SUPP PR SCH ×2 (09:00→21:00)
[2022-03-05] MEDS: FAMOTIDINE 20MG TABLET PO SCH (09:20)
[2022-03-05] MEDS: FOLIC ACID/VITAMIN B COMP W-C TABLET PO SCH (09:20)
[2022-03-05] MEDS: ENOXAPARIN 30MG/0.3ML SYR SUBCUT SCH (09:20)
[2022-03-05] MEDS: CHOLESTYRAMINE/SUCROSE 4G POWDER PACKET PO SCH ×2 (09:20→18:30)
[2022-03-05] MEDS: LINAGLIPTIN 5MG TABLET PO SCH (09:20)
[2022-03-05 12:00] VITALS: BP 142/61
[2022-03-05 12:08] LABS: PLATELET ESTIMATE NORMAL
[2022-03-05 16:00] VITALS: BP 113/65
[2022-03-05 16:36] LABS: INR 1.1
[2022-03-05 20:00] VITALS: BP 145/56
[2022-03-05] MEDS: EPOETIN ALFA-EPBX 10,000 UNIT/ML VIAL SUBCUT SCH (21:00)
[2022-03-05] MEDS: LOSARTAN POTASSIUM 50 MG TABLET PO SCH (21:00)
[2022-03-05] MEDS: ATORVASTATIN CALCIUM 10MG TABLET PO SCH (21:25)
[2022-03-06] VITALS: BP 130/49
[2022-03-06] MEDS: VANCOMYCIN 1000MG/20ML ORAL SOLN PO SCH ×3 (00:05→13:05)
[2022-03-06] MEDS: PHENYLEPH/PRAMOXIN/GLYCR/PET RECTAL CREAM 26GM PR SCH ×3 (00:06→12:00)
[2022-03-06 03:54] VITALS: BP 128/46
[2022-03-06] MEDS: HYDRALAZINE HCL 50MG TABLET PO SCH ×2 (05:00→13:32)
[2022-03-06] MEDS: SODIUM CHLORIDE 0.9% INJ 3ML FLUSH IVF SCH ×2 (05:00→13:29)
[2022-03-06 06:55] LABS: HEMATOCRIT. 28.4 % (36.0-48.0); HEMOGLOBIN. 9.2 g/dL (12.0-16.0); MEAN CORPUSCULAR HEMOGLOBIN 31.6 pg (28.0-32.0); MEAN CORPUSCULAR VOLUME 97.3 fL (81.0-99.0); MEAN PLATELET VOLUME 8.5 fl (7.4-10.4); PLATELET 234 x1000/uL (130-400); RED BLOOD CELL COUNT 2.92 mill/uL (4.2-5.4); RED CELL DISTRIBUTION WIDTH 16.6 % (11.6-14.6)
[2022-03-06] MEDS: BLOOD SUGAR DIAGNOSTIC STRIP TEST SCH ×2 (07:04→13:05)
[2022-03-06] MEDS: INSULIN LISPRO 100 UNITS/ML SUBCUT SCH ×2 (07:43→13:29)
[2022-03-06 08:18] VITALS: BP 167/66
[2022-03-06] MEDS: FAMOTIDINE 20MG TABLET PO SCH (08:35)
[2022-03-06] MEDS: LINAGLIPTIN 5MG TABLET PO SCH (08:35)
[2022-03-06] MEDS: FOLIC ACID/VITAMIN B COMP W-C TABLET PO SCH (08:35)
[2022-03-06] MEDS: CHOLESTYRAMINE/SUCROSE 4G POWDER PACKET PO SCH (08:35)
[2022-03-06] MEDS: HEMORRHOIDAL SUPP PR SCH (08:36)
[2022-03-06 12:00] VITALS: BP 153/60
[2022-03-06 13:19] LABS: PLATELET ESTIMATE NORMAL
[2022-03-06 13:51] VITALS: BP 153/60
[2022-03-18] MEDS ORDERED: INSU100I24 SQ (18:47)
[2022-03-18] MEDS ORDERED: PHEN51CR24 TP (18:50)
== END 2022-03-06 15:42 | disposition home or self-care (01) | DRG 371 ==
LOC: ER 18:50 → MICUSO 02-21 00:51 → 6WST 02-21 11:29
PROVIDERS: ADMIT Internal Medicine; ATTEND Internal Medicine
PROC: 5A1D70Z Performance of Urinary Filtration, Intermittent, Less than 6 Hours Per Day (ICD-10-PCS; principal; 2022-02-21)
PROC: 5A1D70Z Performance of Urinary Filtration, Intermittent, Less than 6 Hours Per Day (ICD-10-PCS; 2022-02-24)
PROC: 5A1D70Z Performance of Urinary Filtration, Intermittent, Less than 6 Hours Per Day (ICD-10-PCS; 2022-02-26)
PROC: 5A1D70Z Performance of Urinary Filtration, Intermittent, Less than 6 Hours Per Day (ICD-10-PCS; 2022-02-28)
PROC: 5A1D70Z Performance of Urinary Filtration, Intermittent, Less than 6 Hours Per Day (ICD-10-PCS; 2022-03-03)
DX: A04.72 Enterocolitis due to Clostridium difficile, not specified as recurrent (principal); N18.6 End stage renal disease; I13.2 Hypertensive heart and chronic kidney disease with heart failure and with stage 5 chronic kidney disease, or end stage renal disease; R18.8 Other ascites; E46 Unspecified protein-calorie malnutrition; E87.1 Hypo-osmolality and hyponatremia; Z68.1 Body mass index [BMI] 19.9 or less, adult; E11.22 Type 2 diabetes mellitus with diabetic chronic kidney disease; D64.9 Anemia, unspecified; E87.6 Hypokalemia; E78.5 Hyperlipidemia, unspecified; E11.51 Type 2 diabetes mellitus with diabetic peripheral angiopathy without gangrene; E78.00 Pure hypercholesterolemia, unspecified; I50.9 Heart failure, unspecified; K59.00 Constipation, unspecified; K64.9 Unspecified hemorrhoids; Z99.2 Dependence on renal dialysis; Z86.73 Personal history of transient ischemic attack (TIA), and cerebral infarction without residual deficits; Z88.8 Allergy status to other drugs, medicaments and biological substances; Z90.49 Acquired absence of other specified parts of digestive tract; Z90.711 Acquired absence of uterus with remaining cervical stump
CPT/HCPCS: 36415; 74018; 74176; 80048; 80053; 82270; 82962; 83605; 83735; 84100; 84443; 85025; 86705; 86709; 86803; 87015; 87045; 87177; 87209; 87340; 87427; 87449; 87493; 89055; 93005; 97162; 97166; 99291; J0696; J0885; J1200; J1650; J1815; J2060; J2270; J2543; J3370; J7060

== ENCOUNTER 2022-04-24 10:38 | Emergency (ER) | payer MEDICARE, MEDICAID ==
[~2022-04-24] VITALS: Ht 152.4 cm; Wt 60.0 kg
[~2022-04-24 10:38] MED LIST changes: +INSU100I24 SQ; +PHEN51CR24 TP
[2022-04-24] MEDS ORDERED: ONDANSETRON HCL 4MG/2ML INJ IV PRN (11:30)
[2022-04-24] MEDS ORDERED: ACETAMINOPHEN 325MG TABLET PO PRN (11:30)
[2022-04-24] MEDS ORDERED: HYDRALAZINE HCL 50MG TABLET PO SCH ×2 (13:00→21:00)
[2022-04-24 13:36] LABS: HEMATOCRIT. 32.6 % (36.0-48.0); MEAN CORPUSCULAR HEMOGLOBIN 30.8 pg (28.0-32.0); MEAN CORPUSCULAR VOLUME 100.1 fL (81.0-99.0); MEAN PLATELET VOLUME 8.8 fl (7.4-10.4); PLATELET 220 x1000/uL (130-400); RED BLOOD CELL COUNT 3.25 mill/uL (4.2-5.4)
[2022-04-24 13:41] LABS: CHLORIDE 99 mEq/L (98-107)
[2022-04-24 14:03] LABS: PLATELET ESTIMATE NORMAL
[2022-04-24] MEDS ORDERED: VANC250C5 MT (14:04)
[2022-04-24] MEDS ORDERED: POTASSIUM CHLORIDE 20MEQ TABLET SR PO NR (15:30)
[2022-04-24 15:49] VITALS: BP 156/76
[2022-04-24] MEDS ORDERED: VANCOMYCIN 1000MG/20ML ORAL SOLN PO SCH (18:00)
[2022-04-25] MEDS ORDERED: LINAGLIPTIN 5MG TABLET PO SCH (09:00)
[2022-04-25] MEDS ORDERED: FOLIC ACID/VITAMIN B COMP W-C TABLET PO SCH (09:00)
[2022-04-25] MEDS ORDERED: ATORVASTATIN CALCIUM 10MG TABLET PO SCH (09:00)
[2022-04-25] MEDS ORDERED: LOSARTAN POTASSIUM 50 MG TABLET PO SCH (09:00)
[2022-04-25 12:24] LABS: HEPATITIS B SURFACE ANTIGEN NEGATIVE
== END 2022-04-24 16:21 | disposition home or self-care (01) ==
LOC: ER 10:38
DX: A04.71 Enterocolitis due to Clostridium difficile, recurrent (principal); I13.2 Hypertensive heart and chronic kidney disease with heart failure and with stage 5 chronic kidney disease, or end stage renal disease; E11.22 Type 2 diabetes mellitus with diabetic chronic kidney disease; N18.6 End stage renal disease; I50.9 Heart failure, unspecified; Z99.2 Dependence on renal dialysis; Z79.899 Other long term (current) drug therapy
CPT/HCPCS: 36415; 74176; 80053; 85025; 86705; 86709; 86803; 87340; 93970; 99284; J3370

== ENCOUNTER 2022-05-25 13:48 | Inpatient (IN) | payer MEDICARE, MEDICAID ==
[~2022-05-25] VITALS: Ht 152.4 cm; Wt 44.5 kg
[~2022-05-25 13:48] MED LIST changes: +VANC250C5 MT
[2022-05-25 14:55] LABS: BASOPHILS % 0.6 % (0.0-2.0); EOSINOPHILS % 1.4 % (0.0-5.0); HEMATOCRIT. 32.3 % (36.0-48.0); LYMPHOCYTES % 12.9 % (20.0-50.0); MEAN CORPUSCULAR VOLUME 97.6 fL (81.0-99.0); MEAN PLATELET VOLUME 8.4 fl (7.4-10.4); MONOCYTES % 13.3 % (2.0-8.0); NEUTROPHILS % 71.8 % (40.0-76.0); PLATELET 277 x1000/uL (130-400); RED BLOOD CELL COUNT 3.31 mill/uL (4.2-5.4); RED CELL DISTRIBUTION WIDTH 19.2 % (11.6-14.6)
[2022-05-25 15:07] LABS: CHLORIDE 97 mEq/L (98-107)
[2022-05-25] MEDS ORDERED: HYDRALAZINE HCL 50MG TABLET PO ONE (20:45)
[2022-05-25] MEDS ORDERED: LOSARTAN POTASSIUM 100 MG TABLET PO ONE (20:45)
[2022-05-25] MEDS ORDERED: NA PHOS,M-B/NA PHOS,DI-BA ENEMA 118ML PR PRN (22:30)
[2022-05-25] MEDS ORDERED: ONDANSETRON HCL 4MG/2ML INJ IV PRN (22:30)
[2022-05-25] MEDS ORDERED: DIPHENHYDRAMINE 50MG/ML VIAL IV PRN (22:30)
[2022-05-25] MEDS ORDERED: CLONIDINE 0.1MG TABLET PO PRN (22:30)
[2022-05-25] MEDS ORDERED: ACETAMINOPHEN 325MG TABLET PO PRN (22:30)
[2022-05-25] MEDS ORDERED: DOCUSATE SODIUM 100MG CAPSULE PO PRN (22:30)
[2022-05-25] MEDS ORDERED: MORPHINE SULFATE 2 MG/ML CPJ (NOT FOR IM USE) IV PRN (22:30)
[2022-05-25] MEDS ORDERED: GUAIFENESIN 200MG/10ML SUGAR FREE UDC PO PRN (22:30)
[2022-05-25] MEDS ORDERED: ENOXAPARIN 40MG/0.4ML SYR SUBCUT SCH (22:30)
[2022-05-25] MEDS ORDERED: MAGNESIUM/ALUMINUM HYDROXIDE/SIMETHICONE 30ML UDC PO PRN (22:30)
[2022-05-25] MEDS ORDERED: IPRATROPIUM/ALBUTEROL 0.5-3(2.5)MG/3ML NEB NEB PRN (22:30)
[2022-05-25] MEDS ORDERED: LEVOFLOXACIN 500MG PREMIX 100 ML IV NR (23:00)
[2022-05-26 04:22] VITALS: BP 151/77
[2022-05-26 07:36] LABS: CHLORIDE 99 mEq/L (98-107)
[2022-05-26 08:00] VITALS: BP 172/60
[2022-05-26] MEDS ORDERED: DEXTROSE 50% WATER 50ML SYRINGE IV PRN (08:30)
[2022-05-26] MEDS ORDERED: LOSARTAN POTASSIUM 50 MG TABLET PO SCH (09:00)
[2022-05-26] MEDS: LINAGLIPTIN 5MG TABLET PO SCH (09:02)
[2022-05-26] MEDS: ASPIRIN 81MG EC TABLET PO SCH (09:02)
[2022-05-26] MEDS: HYDRALAZINE HCL 50MG TABLET PO SCH ×3 (09:02→21:11)
[2022-05-26] MEDS: ENOXAPARIN 30MG/0.3ML SYR SUBCUT SCH (09:03)
[2022-05-26 12:00] VITALS: BP 189/61
[2022-05-26] MEDS ORDERED: VANCOMYCIN HCL 1 GM/VIAL PO SCH (12:00)
[2022-05-26] MEDS ORDERED: VANCOMYCIN 1000MG/20ML ORAL SOLN PO SCH (12:00)
[2022-05-26 12:18] LABS: HEPATITIS B SURFACE ANTIGEN NEGATIVE
[2022-05-26] MEDS: BLOOD SUGAR DIAGNOSTIC STRIP TEST SCH ×3 (12:36→21:11)
[2022-05-26] MEDS: INSULIN LISPRO 100 UNITS/ML SUBCUT SCH ×3 (12:56→21:11)
[2022-05-26 16:00] VITALS: BP 165/89
[2022-05-26] MEDS: NITROGLYCERIN OINT 1GM/INCH UDPKT TD SCH ×2 (16:00→21:12)
[2022-05-26] MEDS: LOSARTAN POTASSIUM 50 MG TABLET PO SCH (17:00)
[2022-05-26 20:00] VITALS: BP_SYST 138; BP_SYST 178; BP_DIAS 62; BP_DIAS 68
[2022-05-26] MEDS: ATORVASTATIN CALCIUM 10MG TABLET PO SCH (21:11)
[2022-05-26] MEDS ORDERED: NALOXONE HCL 0.4MG/ML VIAL IV PRN (22:00)
[2022-05-27] VITALS: BP 159/61
[2022-05-27 04:00] VITALS: BP 153/59
[2022-05-27] MEDS: INSULIN LISPRO 100 UNITS/ML SUBCUT SCH ×4 (05:20→20:58)
[2022-05-27] MEDS: BLOOD SUGAR DIAGNOSTIC STRIP TEST SCH ×4 (05:20→20:58)
[2022-05-27] MEDS: HYDRALAZINE HCL 50MG TABLET PO SCH ×3 (05:20→20:57)
[2022-05-27 07:09] LABS: BASOPHILS % 0.4 % (0.0-2.0); HEMATOCRIT. 34.3 % (36.0-48.0); HEMOGLOBIN. 10.9 g/dL (12.0-16.0); MEAN CORPUSCULAR HEMOGLOBIN 30.6 pg (28.0-32.0); MEAN CORPUSCULAR VOLUME 96.2 fL (81.0-99.0); MEAN PLATELET VOLUME 8.7 fl (7.4-10.4); MONOCYTES % 11.6 % (2.0-8.0); PLATELET 277 x1000/uL (130-400); RED BLOOD CELL COUNT 3.56 mill/uL (4.2-5.4); RED CELL DISTRIBUTION WIDTH 19.4 % (11.6-14.6)
[2022-05-27 08:00] VITALS: BP 159/55
[2022-05-27] MEDS: ASPIRIN 81MG EC TABLET PO SCH (08:45)
[2022-05-27] MEDS: ENOXAPARIN 30MG/0.3ML SYR SUBCUT SCH (08:46)
[2022-05-27] MEDS: LINAGLIPTIN 5MG TABLET PO SCH (08:46)
[2022-05-27] MEDS: LOSARTAN POTASSIUM 50 MG TABLET PO SCH ×2 (08:47→20:57)
[2022-05-27] MEDS: NITROGLYCERIN OINT 1GM/INCH UDPKT TD SCH ×3 (09:11→17:03)
[2022-05-27] MEDS ORDERED: LEVOFLOXACIN 250MG PREMIX 50 ML IV SCH (11:00)
[2022-05-27 12:00] VITALS: BP 152/69
[2022-05-27 16:00] VITALS: BP 172/63
[2022-05-27] MEDS ORDERED: CALC-1249 MT (17:18)
[2022-05-27 20:49] VITALS: BP 154/86
[2022-05-27] MEDS: ATORVASTATIN CALCIUM 10MG TABLET PO SCH (20:57)
[2022-05-28] MEDS: NITROGLYCERIN OINT 1GM/INCH UDPKT TD SCH ×4 (00:02→18:31)
[2022-05-28 00:40] VITALS: BP 143/54
[2022-05-28 04:00] VITALS: BP 163/68
[2022-05-28] MEDS: HYDRALAZINE HCL 50MG TABLET PO SCH ×3 (05:25→22:00)
[2022-05-28] MEDS: BLOOD SUGAR DIAGNOSTIC STRIP TEST SCH ×4 (05:30→20:53)
[2022-05-28] MEDS: INSULIN LISPRO 100 UNITS/ML SUBCUT SCH ×4 (05:30→21:15)
[2022-05-28 07:23] LABS: BASOPHILS % 0.5 % (0.0-2.0); EOSINOPHILS % 1.3 % (0.0-5.0); HEMATOCRIT. 34.9 % (36.0-48.0); HEMOGLOBIN. 10.9 g/dL (12.0-16.0); LYMPHOCYTES % 11.2 % (20.0-50.0); MEAN CORPUSCULAR HEMOGLOBIN 29.8 pg (28.0-32.0); MEAN CORPUSCULAR VOLUME 95.8 fL (81.0-99.0); MEAN PLATELET VOLUME 9.2 fl (7.4-10.4); MONOCYTES % 13.9 % (2.0-8.0); NEUTROPHILS % 73.1 % (40.0-76.0); PLATELET 288 x1000/uL (130-400); RED BLOOD CELL COUNT 3.64 mill/uL (4.2-5.4); RED CELL DISTRIBUTION WIDTH 19.9 % (11.6-14.6)
[2022-05-28 08:13] VITALS: BP 163/55
[2022-05-28] MEDS: ENOXAPARIN 30MG/0.3ML SYR SUBCUT SCH (09:00)
[2022-05-28] MEDS ORDERED: PROT40 PO (09:50)
[2022-05-28] MEDS: LOSARTAN POTASSIUM 50 MG TABLET PO SCH ×2 (09:51→21:00)
[2022-05-28] MEDS: LINAGLIPTIN 5MG TABLET PO SCH (09:53)
[2022-05-28 11:48] LABS: BG BASE EXCESS -1.6 mmol/L (-2.0-2.0); BG CARBOXYHEMOGLOBIN 1.4 % (0.5-1.5); BG FRACTION INSPIRED OXYGEN 21; BG HCO3 ACT 23.5 mmol/L (22.0-26.0); BG METHEMOGLOBIN 0.1 % (0.0-1.5); BG OXYGEN SATURATION 94.9 % (92.0-98.5); BG OXYHEMOGLOBIN 93.5 % (94.0-97.0); BG PH 7.376 (7.350-7.450); BG PO2 77.9 mmHg (75.0-100.0); BG TOTAL HEMOGLOBIN 11.7 g/dL (12.0-18.0); BG VENT MODE ROOM AIR
[2022-05-28 12:00] VITALS: BP 165/57
[2022-05-28 16:07] VITALS: BP 145/56
[2022-05-28 20:00] VITALS: BP 176/64
[2022-05-28] MEDS: ATORVASTATIN CALCIUM 10MG TABLET PO SCH (21:00)
[2022-05-29] VITALS: BP 141/66
[2022-05-29] MEDS: NITROGLYCERIN OINT 1GM/INCH UDPKT TD SCH ×2 (01:11→05:27)
[2022-05-29 04:00] VITALS: BP 161/62
[2022-05-29] MEDS: HYDRALAZINE HCL 50MG TABLET PO SCH ×2 (05:27→13:50)
[2022-05-29 06:12] LABS: HEMOGLOBIN. 10.7 g/dL (12.0-16.0); MEAN CORPUSCULAR HEMOGLOBIN 30.9 pg (28.0-32.0); MEAN CORPUSCULAR VOLUME 95.5 fL (81.0-99.0); MEAN PLATELET VOLUME 8.9 fl (7.4-10.4); PLATELET 261 x1000/uL (130-400); RED BLOOD CELL COUNT 3.46 mill/uL (4.2-5.4)
[2022-05-29] MEDS: BLOOD SUGAR DIAGNOSTIC STRIP TEST SCH ×2 (06:44→11:40)
[2022-05-29] MEDS: INSULIN LISPRO 100 UNITS/ML SUBCUT SCH ×2 (07:21→12:10)
[2022-05-29 08:00] VITALS: BP 119/72
[2022-05-29] MEDS: LINAGLIPTIN 5MG TABLET PO SCH (08:10)
[2022-05-29] MEDS: LOSARTAN POTASSIUM 50 MG TABLET PO SCH (08:10)
[2022-05-29 08:48] LABS: PLATELET ESTIMATE NORMAL
[2022-05-29] MEDS ORDERED: LEVOFLOXACIN 250MG TABLET PO SCH (11:00)
[2022-05-29 11:43] VITALS: BP 130/74
[2022-05-29 11:57] VITALS: BP 132/60
[2022-05-29 16:00] VITALS: BP 150/56
[2022-05-30] MEDS ORDERED: ISOSORBIDE MONONITRATE 30MG TABLET SR 24HR PO SCH (09:00)
== END 2022-05-29 16:00 | disposition home or self-care (01) | DRG 189 ==
LOC: ER 14:17 → MICUSO 05-26 00:12 → 7WST 05-26 04:21
PROVIDERS: ADMIT Internal Medicine; ATTEND Internal Medicine
PROC: 5A1D70Z Performance of Urinary Filtration, Intermittent, Less than 6 Hours Per Day (ICD-10-PCS; principal; 2022-05-26)
PROC: 5A1D70Z Performance of Urinary Filtration, Intermittent, Less than 6 Hours Per Day (ICD-10-PCS; 2022-05-27)
PROC: 5A1D70Z Performance of Urinary Filtration, Intermittent, Less than 6 Hours Per Day (ICD-10-PCS; 2022-05-28)
DX: J96.00 Acute respiratory failure, unspecified whether with hypoxia or hypercapnia (principal); I50.33 Acute on chronic diastolic (congestive) heart failure; N18.6 End stage renal disease; I13.2 Hypertensive heart and chronic kidney disease with heart failure and with stage 5 chronic kidney disease, or end stage renal disease; E46 Unspecified protein-calorie malnutrition; Z68.1 Body mass index [BMI] 19.9 or less, adult; A04.71 Enterocolitis due to Clostridium difficile, recurrent; L89.156 Pressure-induced deep tissue damage of sacral region; E11.22 Type 2 diabetes mellitus with diabetic chronic kidney disease; B35.3 Tinea pedis; I35.1 Nonrheumatic aortic (valve) insufficiency; K64.9 Unspecified hemorrhoids; I65.29 Occlusion and stenosis of unspecified carotid artery; E78.00 Pure hypercholesterolemia, unspecified; R91.8 Other nonspecific abnormal finding of lung field; I27.20 Pulmonary hypertension, unspecified; D63.8 Anemia in other chronic diseases classified elsewhere; Z79.899 Other long term (current) drug therapy; Z88.8 Allergy status to other drugs, medicaments and biological substances; Z74.01 Bed confinement status; Z91.041 Radiographic dye allergy status; Z99.2 Dependence on renal dialysis; Z90.710 Acquired absence of both cervix and uterus; Z90.49 Acquired absence of other specified parts of digestive tract; Z98.891 History of uterine scar from previous surgery; Z86.73 Personal history of transient ischemic attack (TIA), and cerebral infarction without residual deficits; D64.9 Anemia, unspecified; H40.9 Unspecified glaucoma
CPT/HCPCS: 36415; 36600; 71045; 80048; 80053; 82040; 82375; 82805; 82962; 83036; 83880; 84134; 84484; 85025; 86705; 86709; 86803; 87340; 93005; 93306; 94618; 97162; 99285; J1650; J1815; J1956; J3370

== ENCOUNTER 2022-07-05 22:03 | Inpatient (IN) | payer MEDICARE, MEDICAID ==
[~2022-07-05] VITALS: Ht 152.4 cm; Wt 47.7 kg
[~2022-07-05 22:03] MED LIST changes: -ANTIVERT PO; +CALC-1249 MT; -DOCU-138 MT; -FOLI0.8T27 PO; -GLARGINE SQ; -LINA5TAB PO; -PHEN51CR24 TP; -VANC250C5 MT; -VIT B12 PO
[2022-07-05] MEDS ORDERED: AZITHROMYCIN 500MG/250ML 250 ML IV ONE (22:45)
[2022-07-05] MEDS ORDERED: SODIUM CHLORIDE 0.9% 1000ML BAG (SEPSIS BOLUS) IV ONE (22:45)
[2022-07-05] MEDS ORDERED: ONDANSETRON HCL 4MG/2ML INJ IV STA (22:45)
[2022-07-05] MEDS ORDERED: CEFTRIAXONE 1 G PREMIX 50 ML IV ONE (22:45)
[2022-07-05] MEDS ORDERED: KETOROLAC 15MG/ML VIAL IV ONE (23:00)
[2022-07-06] VITALS (40 sets, daily range): BP systolic 106–157; BP diastolic 43–77
[2022-07-06 00:44] LABS: MEAN CORPUSCULAR HEMOGLOBIN 29.3 pg (28.0-32.0); MEAN PLATELET VOLUME 8.3 fl (7.4-10.4); PLATELET 188 x1000/uL (130-400); RED BLOOD CELL COUNT 1.75 mill/uL (4.2-5.4); RED CELL DISTRIBUTION WIDTH 19.3 % (11.6-14.6)
[2022-07-06 00:50] LABS: HEMATOCRIT. 16.5 % (36.0-48.0); HEMOGLOBIN. 5.1 g/dL (12.0-16.0)
[2022-07-06] MEDS ORDERED: CEFTRIAXONE 1 G PREMIX 50 ML IV NR (01:00)
[2022-07-06 01:02] LABS: CHLORIDE 103 mEq/L (98-107)
[2022-07-06 01:39] LABS: INR 1.3; PROTHROMBIN TIME 13.5 sec (9.6-11.0)
[2022-07-06] MEDS ORDERED: NOREPINEPHRINE 8MG/250ML PMX 250 ML IV ONE ×2 (01:45→04:38)
[2022-07-06] MEDS ORDERED: DIATR MEGLU/DIATRIZOATE SOLN 120ML ONE (04:28)
[2022-07-06 05:23] LABS: PLATELET ESTIMATE NORMAL
[2022-07-06] MEDS ORDERED: SUCCINYLCHOLINE CHLORIDE 200MG/10ML IV ONE (07:10)
[2022-07-06] MEDS ORDERED: ROCURONIUM BROMIDE 10MG/ML VIAL 5ML IV ONE (07:10)
[2022-07-06] MEDS ORDERED: ONDANSETRON HCL 4MG/2ML INJ IV PRN (08:00)
[2022-07-06] MEDS ORDERED: MORPHINE SULFATE 4 MG/ML CPJ (NOT FOR IM USE) IV PRN (08:00)
[2022-07-06] MEDS ORDERED: DEXT 5%/0.45% NACL KCL 20MEQ/L 1,000 ML IV SCH ×2 (08:00→11:00)
[2022-07-06] MEDS ORDERED: NALOXONE HCL 0.4MG/ML VIAL IV PRN (08:45)
[2022-07-06] MEDS ORDERED: FENTANYL CITRATE/PF 2,500 MCG in SODIUM CHLORIDE 0.9% 200 ML IV PRN (08:45)
[2022-07-06 08:56] LABS: BG BASE EXCESS -6.3 mmol/L (-2.0-2.0); BG CARBOXYHEMOGLOBIN 0.6 % (0.5-1.5); BG HCO3 ACT 17.4 mmol/L (22.0-26.0); BG METHEMOGLOBIN 0.1 % (0.0-1.5); BG OXYHEMOGLOBIN 98.3 % (94.0-97.0); BG PCO2 29.1 mmHg (35.0-45.0); BG PH 7.395 (7.350-7.450); BG PO2 173.8 mmHg (75.0-100.0); BG SAMPLE SITE RIGHT BRACHIAL; BG TOTAL HEMOGLOBIN 11.8 g/dL (12.0-18.0); BG VENT MODE VENT - AC
[2022-07-06] MEDS: PIPERACILLIN/TAZOBACTAM 3.375 G in DEXTROSE 5% WATER 50 ML IV SCH ×2 (11:07→20:29)
[2022-07-06] MEDS: SODIUM CHLORIDE 0.9% 1,000 ML IV SCH (11:33)
[2022-07-06 11:44] LABS: HEMATOCRIT. 36.7 % (36.0-48.0); HEMOGLOBIN. 12.2 g/dL (12.0-16.0); MEAN CORPUSCULAR VOLUME 92.9 fL (81.0-99.0); PLATELET 122 x1000/uL (130-400); RED BLOOD CELL COUNT 3.94 mill/uL (4.2-5.4); RED CELL DISTRIBUTION WIDTH 15.8 % (11.6-14.6)
[2022-07-06 11:56] LABS: INR 1.3
[2022-07-06] MEDS: BLOOD SUGAR DIAGNOSTIC STRIP TEST SCH ×3 (12:00→23:22)
[2022-07-06] MEDS: INSULIN LISPRO 100 UNITS/ML SUBCUT SCH ×3 (12:34→20:17)
[2022-07-06] MEDS ORDERED: FENTANYL CITRATE 2,500 MCG in SODIUM CHLORIDE 0.9% 200 ML IV PRN (13:00)
[2022-07-06] MEDS: PROPOFOL 10MG/ML 100ML 100 ML IV PRN (13:00)
[2022-07-06] MEDS ORDERED: FENTANYL 2500MCG/250ML PMX 250 ML IV ONE (13:00)
[2022-07-06 13:31] LABS: PLATELET ESTIMATE SLIGHTLY DECREASED
[2022-07-06 15:25] LABS: BG BASE EXCESS -3.8 mmol/L (-2.0-2.0); BG CARBOXYHEMOGLOBIN 0.4 % (0.5-1.5); BG DEOXYHEMOGLOBIN 1.6 % (0.0-5.0); BG HCO3 ACT 18.8 mmol/L (22.0-26.0); BG METHEMOGLOBIN 0.2 % (0.0-1.5); BG OXYGEN SATURATION 98.4 % (92.0-98.5); BG OXYHEMOGLOBIN 97.8 % (94.0-97.0); BG PH 7.461 (7.350-7.450); BG PO2 140.8 mmHg (75.0-100.0); BG SAMPLE SITE RIGHT BRACHIAL; BG TOTAL HEMOGLOBIN 11.5 g/dL (12.0-18.0); BG VENT MODE VENT - AC
[2022-07-06] MEDS ORDERED: NOREPINEPHRINE 32 MG in DEXT 5% WATER 218 ML IV PRN (18:45)
[2022-07-07] VITALS (58 sets, daily range): BP systolic 102–183; BP diastolic 38–65
[2022-07-07] MEDS: PROPOFOL 10MG/ML 100ML 100 ML IV PRN ×2 (01:00→14:54)
[2022-07-07 05:23] LABS: HEMATOCRIT. 27.9 % (36.0-48.0); HEMOGLOBIN. 9.4 g/dL (12.0-16.0); MEAN CORPUSCULAR HEMOGLOBIN 31.3 pg (28.0-32.0); MEAN CORPUSCULAR VOLUME 92.9 fL (81.0-99.0); MEAN PLATELET VOLUME 9.9 fl (7.4-10.4); PLATELET 114 x1000/uL (130-400); RED CELL DISTRIBUTION WIDTH 16.1 % (11.6-14.6)
[2022-07-07 05:50] LABS: PHOSPHORUS 3.2 mg/dL (2.5-4.9)
[2022-07-07] MEDS: INSULIN LISPRO 100 UNITS/ML SUBCUT SCH ×4 (06:21→21:49)
[2022-07-07] MEDS: BLOOD SUGAR DIAGNOSTIC STRIP TEST SCH ×4 (06:21→23:52)
[2022-07-07] MEDS: SODIUM CHLORIDE 0.9% 1,000 ML IV SCH (06:22)
[2022-07-07 07:07] LABS: PLATELET ESTIMATE SLIGHTLY DECREASED
[2022-07-07] MEDS: PIPERACILLIN/TAZOBACTAM 3.375 G in DEXTROSE 5% WATER 50 ML IV SCH ×2 (08:21→21:45)
[2022-07-07] MEDS: PANTOPRAZOLE SODIUM 40 MG/VIAL IV SCH (08:21)
[2022-07-07 09:06] LABS: BG BASE EXCESS -2.4 mmol/L (-2.0-2.0); BG CARBOXYHEMOGLOBIN 0.3 % (0.5-1.5); BG DEOXYHEMOGLOBIN 1.1 % (0.0-5.0); BG FRACTION INSPIRED OXYGEN 40; BG HCO3 ACT 19.3 mmol/L (22.0-26.0); BG METHEMOGLOBIN 0.3 % (0.0-1.5); BG OXYGEN SATURATION 98.9 % (92.0-98.5); BG OXYHEMOGLOBIN 98.3 % (94.0-97.0); BG PCO2 23.3 mmHg (35.0-45.0); BG PH 7.535 (7.350-7.450); BG SAMPLE SITE RIGHT RADIAL; BG TOTAL HEMOGLOBIN 9.2 g/dL (12.0-18.0); BG VENT MODE VENT - AC
[2022-07-07 20:45] LABS: HEPATITIS B SURFACE ANTIGEN NEGATIVE
[2022-07-07] MEDS: HYDRALAZINE 20MG/ML VIAL IV PRN (21:45)
[2022-07-07] MEDS: DEXTROSE 50% WATER 50ML SYRINGE IV PRN (23:54)
[2022-07-08] VITALS (96 sets, daily range): BP systolic 89–165; BP diastolic 38–98
[2022-07-08] MEDS: SODIUM CHLORIDE 0.9% 1,000 ML IV SCH (02:59)
[2022-07-08] MEDS: BLOOD SUGAR DIAGNOSTIC STRIP TEST SCH ×3 (05:16→18:45)
[2022-07-08] MEDS: DEXTROSE 50% WATER 50ML SYRINGE IV PRN (05:16)
[2022-07-08] MEDS: INSULIN LISPRO 100 UNITS/ML SUBCUT SCH ×3 (05:16→18:00)
[2022-07-08 05:50] LABS: HEMATOCRIT. 30.2 % (36.0-48.0); MEAN CORPUSCULAR HEMOGLOBIN 31.1 pg (28.0-32.0); MEAN CORPUSCULAR VOLUME 94.1 fL (81.0-99.0); MEAN PLATELET VOLUME 10.2 fl (7.4-10.4); PLATELET 123 x1000/uL (130-400); RED BLOOD CELL COUNT 3.21 mill/uL (4.2-5.4); RED CELL DISTRIBUTION WIDTH 16.4 % (11.6-14.6)
[2022-07-08] MEDS ORDERED: FENTANYL 2500MCG/250ML PMX 250 ML IV PRN (07:00)
[2022-07-08] MEDS ORDERED: DEXT 10% WATER 1,000 ML IV SCH (07:45)
[2022-07-08] MEDS: DEXT 10% WATER 1,000 ML IV SCH (08:00)
[2022-07-08] MEDS: PANTOPRAZOLE SODIUM 40 MG/VIAL IV SCH (08:54)
[2022-07-08] MEDS: PIPERACILLIN/TAZOBACTAM 3.375 G in DEXTROSE 5% WATER 50 ML IV SCH ×2 (08:54→20:50)
[2022-07-08 09:36] LABS: NUCLEATED RED BLOOD CELLS 1 /100 WBC
[2022-07-08 09:37] LABS: PLATELET ESTIMATE SLIGHTLY DECREASED
[2022-07-08] MEDS ORDERED: BLOOD SUGAR DIAGNOSTIC STRIP TEST SCH (11:30)
[2022-07-08 12:49] LABS: BG CARBOXYHEMOGLOBIN 0.3 % (0.5-1.5); BG DEOXYHEMOGLOBIN 1.2 % (0.0-5.0); BG FRACTION INSPIRED OXYGEN 40; BG HCO3 ACT 28.6 mmol/L (22.0-26.0); BG METHEMOGLOBIN 0.4 % (0.0-1.5); BG OXYGEN SATURATION 98.8 % (92.0-98.5); BG OXYHEMOGLOBIN 98.1 % (94.0-97.0); BG PCO2 29.9 mmHg (35.0-45.0); BG PH 7.598 (7.350-7.450); BG PO2 156.5 mmHg (75.0-100.0); BG SAMPLE SITE RIGHT RADIAL; BG TOTAL HEMOGLOBIN 9.9 g/dL (12.0-18.0); BG VENT MODE VENT - AC
[2022-07-08] MEDS: PROPOFOL 10MG/ML 100ML 100 ML IV PRN (14:26)
[2022-07-08 17:35] LABS: BG BASE EXCESS 2.2 mmol/L (-2.0-2.0); BG CARBOXYHEMOGLOBIN 0.3 % (0.5-1.5); BG DEOXYHEMOGLOBIN 1.8 % (0.0-5.0); BG FRACTION INSPIRED OXYGEN 40; BG HCO3 ACT 25.3 mmol/L (22.0-26.0); BG METHEMOGLOBIN 0.5 % (0.0-1.5); BG OXYGEN SATURATION 98.2 % (92.0-98.5); BG OXYHEMOGLOBIN 97.4 % (94.0-97.0); BG PCO2 33.9 mmHg (35.0-45.0); BG PH 7.491 (7.350-7.450); BG PO2 134.5 mmHg (75.0-100.0); BG SAMPLE SITE RIGHT RADIAL; BG TOTAL HEMOGLOBIN 10.1 g/dL (12.0-18.0); BG VENT MODE VENT - AC
[2022-07-08] MEDS ORDERED: PROPOFOL 10MG/ML 100ML 100 ML IV PRN (21:00)
[2022-07-09] VITALS (87 sets, daily range): BP systolic 99–215; BP diastolic 15–103
[2022-07-09] MEDS: BLOOD SUGAR DIAGNOSTIC STRIP TEST SCH ×5 (00:29→23:39)
[2022-07-09] MEDS: DEXT 10% WATER 1,000 ML IV SCH ×2 (03:44→20:52)
[2022-07-09 05:20] LABS: HEMATOCRIT. 25.8 % (36.0-48.0); HEMOGLOBIN. 8.5 g/dL (12.0-16.0); MEAN CORPUSCULAR HEMOGLOBIN 30.9 pg (28.0-32.0); MEAN CORPUSCULAR VOLUME 94.4 fL (81.0-99.0); MEAN PLATELET VOLUME 10.8 fl (7.4-10.4); PLATELET 93 x1000/uL (130-400); RED BLOOD CELL COUNT 2.74 mill/uL (4.2-5.4); RED CELL DISTRIBUTION WIDTH 16.2 % (11.6-14.6)
[2022-07-09] MEDS: INSULIN LISPRO 100 UNITS/ML SUBCUT SCH ×5 (05:30→23:43)
[2022-07-09 08:39] LABS: BG BASE EXCESS 2.2 mmol/L (-2.0-2.0); BG CARBOXYHEMOGLOBIN 0.3 % (0.5-1.5); BG DEOXYHEMOGLOBIN 1.5 % (0.0-5.0); BG FRACTION INSPIRED OXYGEN 40; BG HCO3 ACT 26.8 mmol/L (22.0-26.0); BG METHEMOGLOBIN 0.3 % (0.0-1.5); BG OXYGEN SATURATION 98.5 % (92.0-98.5); BG OXYHEMOGLOBIN 97.9 % (94.0-97.0); BG PCO2 41.6 mmHg (35.0-45.0); BG PH 7.427 (7.350-7.450); BG PO2 148.5 mmHg (75.0-100.0); BG SAMPLE SITE RIGHT RADIAL; BG TOTAL HEMOGLOBIN 8.9 g/dL (12.0-18.0); BG VENT MODE VENT - AC
[2022-07-09] MEDS: PANTOPRAZOLE SODIUM 40 MG/VIAL IV SCH (09:32)
[2022-07-09] MEDS: PIPERACILLIN/TAZOBACTAM 3.375 G in DEXTROSE 5% WATER 50 ML IV SCH ×2 (09:33→20:52)
[2022-07-09] MEDS ORDERED: LIDOCAINE HCL 1% 50ML VIAL (10MG/ML) ONE (13:20)
[2022-07-09 15:19] LABS: NUCLEATED RED BLOOD CELLS 1 /100 WBC
[2022-07-09 15:21] LABS: PLATELET ESTIMATE SLIGHTLY DECREASED
[2022-07-09] MEDS: VANCOMYCIN 1000MG/20ML ORAL SOLN PO SCH (23:39)
[2022-07-10] VITALS (91 sets, daily range): BP systolic 29–155; BP diastolic 13–97
[2022-07-10 05:21] LABS: HEMATOCRIT. 26.8 % (36.0-48.0); HEMOGLOBIN. 8.6 g/dL (12.0-16.0); MEAN CORPUSCULAR VOLUME 93.5 fL (81.0-99.0); MEAN PLATELET VOLUME 11.4 fl (7.4-10.4); PLATELET 72 x1000/uL (130-400); RED BLOOD CELL COUNT 2.87 mill/uL (4.2-5.4); RED CELL DISTRIBUTION WIDTH 16.7 % (11.6-14.6)
[2022-07-10] MEDS: BLOOD SUGAR DIAGNOSTIC STRIP TEST SCH ×3 (05:43→18:15)
[2022-07-10] MEDS: VANCOMYCIN 1000MG/20ML ORAL SOLN PO SCH ×3 (05:44→18:15)
[2022-07-10] MEDS: MORPHINE SULFATE 2 MG/ML CPJ (NOT FOR IM USE) IV PRN ×2 (06:07→22:27)
[2022-07-10] MEDS: INSULIN LISPRO 100 UNITS/ML SUBCUT SCH ×3 (06:07→18:16)
[2022-07-10] MEDS ORDERED: DEXT 5%/0.45% NACL 1000ML 1,000 ML IV SCH (08:30)
[2022-07-10] MEDS: PANTOPRAZOLE SODIUM 40 MG/VIAL IV SCH (08:31)
[2022-07-10] MEDS: PIPERACILLIN/TAZOBACTAM 3.375 G in DEXTROSE 5% WATER 50 ML IV SCH (08:31)
[2022-07-10 10:47] LABS: PLATELET ESTIMATE DECREASED
[2022-07-10] MEDS ORDERED: CEFEPIME 1,000 MG in DEXTROSE 5% WATER 50 ML IV SCH (12:00)
[2022-07-10] MEDS: MEROPENEM 1,000 MG in SODIUM CHLORIDE 0.9% 100 ML IV SCH (12:49)
[2022-07-10 13:21] LABS: BG BASE EXCESS 0.3 mmol/L (-2.0-2.0); BG CARBOXYHEMOGLOBIN 0.3 % (0.5-1.5); BG DEOXYHEMOGLOBIN 1.5 % (0.0-5.0); BG FRACTION INSPIRED OXYGEN 30; BG HCO3 ACT 23.8 mmol/L (22.0-26.0); BG METHEMOGLOBIN 0.1 % (0.0-1.5); BG OXYGEN SATURATION 98.5 % (92.0-98.5); BG OXYHEMOGLOBIN 98.1 % (94.0-97.0); BG PCO2 34.6 mmHg (35.0-45.0); BG PH 7.456 (7.350-7.450); BG PO2 137.1 mmHg (75.0-100.0); BG SAMPLE SITE RIGHT BRACHIAL; BG TOTAL HEMOGLOBIN 10.4 g/dL (12.0-18.0); BG VENT MODE VENT - AC
[2022-07-11] VITALS (50 sets, daily range): BP systolic 102–165; BP diastolic 32–109
[2022-07-11] MEDS: VANCOMYCIN 1000MG/20ML ORAL SOLN PO SCH ×4 (05:12→18:14)
[2022-07-11] MEDS: INSULIN LISPRO 100 UNITS/ML SUBCUT SCH ×4 (05:56→18:14)
[2022-07-11] MEDS: BLOOD SUGAR DIAGNOSTIC STRIP TEST SCH ×4 (05:57→17:25)
[2022-07-11 06:32] LABS: HEMATOCRIT. 29.4 % (36.0-48.0); HEMOGLOBIN. 9.3 g/dL (12.0-16.0); MEAN CORPUSCULAR HEMOGLOBIN 30.2 pg (28.0-32.0); MEAN CORPUSCULAR VOLUME 95.2 fL (81.0-99.0); MEAN PLATELET VOLUME 12.3 fl (7.4-10.4); PLATELET 63 x1000/uL (130-400); RED BLOOD CELL COUNT 3.09 mill/uL (4.2-5.4); RED CELL DISTRIBUTION WIDTH 16.8 % (11.6-14.6)
[2022-07-11 09:06] LABS: BG BASE EXCESS -3.7 mmol/L (-2.0-2.0); BG CARBOXYHEMOGLOBIN 0.3 % (0.5-1.5); BG DEOXYHEMOGLOBIN 1.5 % (0.0-5.0); BG FRACTION INSPIRED OXYGEN 30; BG HCO3 ACT 20.2 mmol/L (22.0-26.0); BG METHEMOGLOBIN 0.3 % (0.0-1.5); BG OXYGEN SATURATION 98.5 % (92.0-98.5); BG OXYHEMOGLOBIN 97.9 % (94.0-97.0); BG PCO2 32.8 mmHg (35.0-45.0); BG PH 7.408 (7.350-7.450); BG PO2 144.9 mmHg (75.0-100.0); BG SAMPLE SITE RIGHT RADIAL; BG TOTAL HEMOGLOBIN 10.4 g/dL (12.0-18.0); BG VENT MODE VENT - AC
[2022-07-11] MEDS: PANTOPRAZOLE SODIUM 40 MG/VIAL IV SCH (09:06)
[2022-07-11 09:26] LABS: NUCLEATED RED BLOOD CELLS 4 /100 WBC
[2022-07-11 09:27] LABS: PLATELET ESTIMATE DECREASED
[2022-07-11] MEDS: MEROPENEM 1,000 MG in SODIUM CHLORIDE 0.9% 100 ML IV SCH (12:13)
[2022-07-11 15:05] LABS: BG BASE EXCESS -1.8 mmol/L (-2.0-2.0); BG CARBOXYHEMOGLOBIN 0.7 % (0.5-1.5); BG DEOXYHEMOGLOBIN 1.4 % (0.0-5.0); BG FRACTION INSPIRED OXYGEN 30; BG HCO3 ACT 22.2 mmol/L (22.0-26.0); BG METHEMOGLOBIN 0.2 % (0.0-1.5); BG OXYGEN SATURATION 98.6 % (92.0-98.5); BG OXYHEMOGLOBIN 97.7 % (94.0-97.0); BG PCO2 34.9 mmHg (35.0-45.0); BG PH 7.421 (7.350-7.450); BG PO2 130.4 mmHg (75.0-100.0); BG SAMPLE SITE RIGHT BRACHIAL; BG TOTAL HEMOGLOBIN 11.2 g/dL (12.0-18.0); BG TOTAL RESPIRATORY RATE 28 b/min; BG VENT MODE VENT - CPAP
[2022-07-12] VITALS (53 sets, daily range): BP systolic 84–167; BP diastolic 35–71
[2022-07-12] MEDS: BLOOD SUGAR DIAGNOSTIC STRIP TEST SCH ×5 (00:16→23:58)
[2022-07-12] MEDS: VANCOMYCIN 1000MG/20ML ORAL SOLN PO SCH ×5 (00:22→23:59)
[2022-07-12] MEDS: INSULIN LISPRO 100 UNITS/ML SUBCUT SCH ×5 (00:23→23:59)
[2022-07-12 05:54] LABS: HEMATOCRIT. 31.8 % (36.0-48.0); HEMOGLOBIN. 10.2 g/dL (12.0-16.0); MEAN CORPUSCULAR VOLUME 93.4 fL (81.0-99.0); MEAN PLATELET VOLUME 12.9 fl (7.4-10.4); PLATELET 78 x1000/uL (130-400); RED BLOOD CELL COUNT 3.41 mill/uL (4.2-5.4); RED CELL DISTRIBUTION WIDTH 16.3 % (11.6-14.6)
[2022-07-12 08:05] LABS: NUCLEATED RED BLOOD CELLS 1 /100 WBC; PLATELET ESTIMATE DECREASED
[2022-07-12] MEDS: PANTOPRAZOLE SODIUM 40 MG/VIAL IV SCH (09:30)
[2022-07-12] MEDS: MEROPENEM 1,000 MG in SODIUM CHLORIDE 0.9% 100 ML IV SCH (15:55)
[2022-07-13] VITALS (11 sets, daily range): BP systolic 125–157; BP diastolic 47–63
[2022-07-13] MEDS: BLOOD SUGAR DIAGNOSTIC STRIP TEST SCH ×4 (05:12→23:27)
[2022-07-13] MEDS: VANCOMYCIN 1000MG/20ML ORAL SOLN PO SCH ×4 (05:26→23:27)
[2022-07-13] MEDS: INSULIN LISPRO 100 UNITS/ML SUBCUT SCH ×4 (05:29→23:26)
[2022-07-13 06:42] LABS: HEMATOCRIT. 34.6 % (36.0-48.0); HEMOGLOBIN. 11.2 g/dL (12.0-16.0); MEAN CORPUSCULAR HEMOGLOBIN 30.7 pg (28.0-32.0); MEAN CORPUSCULAR VOLUME 94.7 fL (81.0-99.0); MEAN PLATELET VOLUME 12.1 fl (7.4-10.4); PLATELET 85 x1000/uL (130-400); RED BLOOD CELL COUNT 3.65 mill/uL (4.2-5.4); RED CELL DISTRIBUTION WIDTH 16.4 % (11.6-14.6)
[2022-07-13] MEDS: PANTOPRAZOLE SODIUM 40 MG/VIAL IV SCH (08:42)
[2022-07-13 10:03] LABS: PLATELET ESTIMATE DECREASED
[2022-07-13] MEDS: MEROPENEM 1,000 MG in SODIUM CHLORIDE 0.9% 100 ML IV SCH (12:10)
[2022-07-13] MEDS: INSULIN GLARGINE 100 UNITS/ML SUBCUT SCH (22:45)
[2022-07-14] VITALS (10 sets, daily range): BP systolic 111–179; BP diastolic 50–76
[2022-07-14] MEDS: BLOOD SUGAR DIAGNOSTIC STRIP TEST SCH ×4 (05:58→23:06)
[2022-07-14] MEDS: VANCOMYCIN 1000MG/20ML ORAL SOLN PO SCH ×4 (06:05→23:13)
[2022-07-14] MEDS: INSULIN LISPRO 100 UNITS/ML SUBCUT SCH ×4 (06:06→23:12)
[2022-07-14 08:13] LABS: HEMATOCRIT. 33.7 % (36.0-48.0); HEMOGLOBIN. 10.9 g/dL (12.0-16.0); MEAN CORPUSCULAR HEMOGLOBIN 30.7 pg (28.0-32.0); MEAN CORPUSCULAR VOLUME 95.1 fL (81.0-99.0); MEAN PLATELET VOLUME 12.4 fl (7.4-10.4); PLATELET 125 x1000/uL (130-400); RED BLOOD CELL COUNT 3.54 mill/uL (4.2-5.4)
[2022-07-14] MEDS: PANTOPRAZOLE SODIUM 40 MG/VIAL IV SCH (08:31)
[2022-07-14 11:38] LABS: PLATELET ESTIMATE SLIGHTLY DECREASED
[2022-07-14] MEDS: MEROPENEM 1,000 MG in SODIUM CHLORIDE 0.9% 100 ML IV SCH (12:26)
[2022-07-14] MEDS: INSULIN GLARGINE 100 UNITS/ML SUBCUT SCH (20:34)
[2022-07-15] VITALS (10 sets, daily range): BP systolic 118–158; BP diastolic 40–59
[2022-07-15] MEDS: BLOOD SUGAR DIAGNOSTIC STRIP TEST SCH ×3 (05:06→17:29)
[2022-07-15] MEDS: VANCOMYCIN 1000MG/20ML ORAL SOLN PO SCH ×3 (05:06→17:28)
[2022-07-15] MEDS: INSULIN LISPRO 100 UNITS/ML SUBCUT SCH ×3 (06:00→17:26)
[2022-07-15 07:21] LABS: HEMATOCRIT. 33.7 % (36.0-48.0); HEMOGLOBIN. 10.6 g/dL (12.0-16.0); MEAN CORPUSCULAR HEMOGLOBIN 30.3 pg (28.0-32.0); MEAN CORPUSCULAR VOLUME 96.1 fL (81.0-99.0); MEAN PLATELET VOLUME 11.5 fl (7.4-10.4); PLATELET 160 x1000/uL (130-400); RED BLOOD CELL COUNT 3.51 mill/uL (4.2-5.4); RED CELL DISTRIBUTION WIDTH 16.2 % (11.6-14.6)
[2022-07-15] MEDS: PANTOPRAZOLE SODIUM 40 MG/VIAL IV SCH (08:01)
[2022-07-15] MEDS ORDERED: CLOTRIMAZOLE 1% VAGINAL CREAM 45GM VG ONE (11:15)
[2022-07-15] MEDS: MEROPENEM 1,000 MG in SODIUM CHLORIDE 0.9% 100 ML IV SCH (11:55)
[2022-07-15 17:00] LABS: PLATELET ESTIMATE NORMAL
[2022-07-15] MEDS: NYSTATIN POWDER 15GM TOP SCH (17:29)
[2022-07-15] MEDS ORDERED: MICONAZOLE NITRATE 2% VAGINAL CREAM (7 DAYS) 45GM VG SCH (21:00)
[2022-07-16] VITALS: BP 147/54
[2022-07-16] MEDS: VANCOMYCIN 1000MG/20ML ORAL SOLN PO SCH ×3 (00:23→14:23)
[2022-07-16] MEDS: BLOOD SUGAR DIAGNOSTIC STRIP TEST SCH ×3 (00:23→12:31)
[2022-07-16] MEDS: INSULIN LISPRO 100 UNITS/ML SUBCUT SCH ×3 (00:25→14:25)
[2022-07-16 04:00] VITALS: BP 152/50
[2022-07-16] MEDS: HYDRALAZINE 20MG/ML VIAL IV PRN (07:10)
[2022-07-16 08:00] VITALS: BP 145/54
[2022-07-16] MEDS: NYSTATIN POWDER 15GM TOP SCH ×2 (09:59→14:23)
[2022-07-16] MEDS: PANTOPRAZOLE SODIUM 40 MG/VIAL IV SCH (09:59)
[2022-07-16] MEDS ORDERED: CALCIUM CARBONATE/VITAMIN D3 500MG TABLET PO SCH (11:30)
[2022-07-16 12:00] VITALS: BP 125/40
[2022-07-16] MEDS ORDERED: DORZOLAMIDE 2% OPHTH 10 ML BOTTLE BOTHEYE SCH ×2 (14:00→17:00)
[2022-07-16] MEDS: MEROPENEM 1,000 MG in SODIUM CHLORIDE 0.9% 100 ML IV SCH (14:24)
== END 2022-07-16 15:15 | DRG 853 ==
LOC: ER 22:03 → MICUSO 07-06 02:12 → MICUNO 07-06 09:33 → 5EST 07-12 23:10
PROVIDERS: ADMIT Internal Medicine; ATTEND Internal Medicine
PROC: 07TP0ZZ Resection of Spleen, Open Approach (ICD-10-PCS; principal; 2022-07-06)
PROC: 5A1955Z Respiratory Ventilation, Greater than 96 Consecutive Hours (ICD-10-PCS; 2022-07-06)
PROC: 0BH17EZ Insertion of Endotracheal Airway into Trachea, Via Natural or Artificial Opening (ICD-10-PCS; 2022-07-06)
PROC: 06HY33Z Insertion of Infusion Device into Lower Vein, Percutaneous Approach (ICD-10-PCS; 2022-07-06)
PROC: 30233N1 Transfusion of Nonautologous Red Blood Cells into Peripheral Vein, Percutaneous Approach (ICD-10-PCS; 2022-07-06)
PROC: 5A1D70Z Performance of Urinary Filtration, Intermittent, Less than 6 Hours Per Day (ICD-10-PCS; 2022-07-08)
PROC: 02HV33Z Insertion of Infusion Device into Superior Vena Cava, Percutaneous Approach (ICD-10-PCS; 2022-07-09)
PROC: B548ZZA Ultrasonography of Superior Vena Cava, Guidance (ICD-10-PCS; 2022-07-09)
PROC: 5A1D70Z Performance of Urinary Filtration, Intermittent, Less than 6 Hours Per Day (ICD-10-PCS; 2022-07-10)
PROC: 5A1D70Z Performance of Urinary Filtration, Intermittent, Less than 6 Hours Per Day (ICD-10-PCS; 2022-07-12)
PROC: 5A1D70Z Performance of Urinary Filtration, Intermittent, Less than 6 Hours Per Day (ICD-10-PCS; 2022-07-14)
DX: A41.59 Other Gram-negative sepsis (principal); E43 Unspecified severe protein-calorie malnutrition; R57.8 Other shock; N18.6 End stage renal disease; J96.01 Acute respiratory failure with hypoxia; G93.41 Metabolic encephalopathy; S36.09XA Other injury of spleen, initial encounter; D62 Acute posthemorrhagic anemia; E87.2 Acidosis; R18.8 Other ascites; J84.9 Interstitial pulmonary disease, unspecified; G62.81 Critical illness polyneuropathy; I13.2 Hypertensive heart and chronic kidney disease with heart failure and with stage 5 chronic kidney disease, or end stage renal disease; Z16.12 Extended spectrum beta lactamase (ESBL) resistance; S36.039A Unspecified laceration of spleen, initial encounter; Z20.822 Contact with and (suspected) exposure to COVID-19; F03.90 Unspecified dementia, unspecified severity, without behavioral disturbance, psychotic disturbance, mood disturbance, and anxiety; E11.22 Type 2 diabetes mellitus with diabetic chronic kidney disease; I95.9 Hypotension, unspecified; D63.1 Anemia in chronic kidney disease; E87.6 Hypokalemia; B96.1 Klebsiella pneumoniae [K. pneumoniae] as the cause of diseases classified elsewhere; K22.0 Achalasia of cardia; B96.20 Unspecified Escherichia coli [E. coli] as the cause of diseases classified elsewhere; E11.649 Type 2 diabetes mellitus with hypoglycemia without coma; R54 Age-related physical debility; R26.9 Unspecified abnormalities of gait and mobility; D72.829 Elevated white blood cell count, unspecified; E11.42 Type 2 diabetes mellitus with diabetic polyneuropathy; I27.20 Pulmonary hypertension, unspecified; E86.1 Hypovolemia; I50.9 Heart failure, unspecified; S22.49XG Multiple fractures of ribs, unspecified side, subsequent encounter for fracture with delayed healing; Z99.2 Dependence on renal dialysis; Z88.8 Allergy status to other drugs, medicaments and biological substances; Z68.20 Body mass index [BMI] 20.0-20.9, adult; Z79.4 Long term (current) use of insulin; Z90.710 Acquired absence of both cervix and uterus; Z86.73 Personal history of transient ischemic attack (TIA), and cerebral infarction without residual deficits; Z90.49 Acquired absence of other specified parts of digestive tract; Z91.041 Radiographic dye allergy status; X58.XXXA Exposure to other specified factors, initial encounter; Y93.9 Activity, unspecified; Y92.89 Other specified places as the place of occurrence of the external cause; Y99.8 Other external cause status
CPT/HCPCS: 36415; 36573; 36600; 71045; 71250; 74176; 80048; 80053; 82375; 82805; 82962; 83036; 83605; 83735; 83880; 84100; 84145; 84443; 84478; 84484; 85025; 86705; 86709; 86803; 86850; 86900; 86920; 87070; 87077; 87186; 87340; 87426; 87493; 88305; 92610; 93005; 93306; 93970; 94002; 94003; 97110; 97162; 97166; 99291; A6261; C1725; C9113; J0330; J0360; J0456; J0692; J0696; J1815; J1885; J2185; J2270; J2405; J2543; J2704; J3010; J3370; J3490; J7030; J7050; J7060; P9016; Q9963

== ENCOUNTER 2022-07-16 16:09 | Inpatient (IN) | payer MEDICARE, MEDICAID ==
[~2022-07-16] VITALS: Ht 152.4 cm; Wt 45.4 kg
[2022-07-16 16:00] VITALS: BP 156/50
[2022-07-16] MEDS ORDERED: DEXTROSE 50% WATER 50ML SYRINGE IV PRN ×2 (19:00→19:30)
[2022-07-16] MEDS ORDERED: ONDANSETRON HCL 4MG/2ML INJ IV PRN (19:00)
[2022-07-16] MEDS ORDERED: HYDRALAZINE 10 MG in SODIUM CHLORIDE 0.9% 49.5 ML IV PRN (19:30)
[2022-07-16] MEDS ORDERED: VANCOMYCIN 1G PREMIX 200 ML IV SCH (19:30)
[2022-07-16 20:00] VITALS: BP 159/40
[2022-07-16] MEDS: MICONAZOLE NITRATE 100MG VAG SUPP VG SCH (21:00)
[2022-07-16] MEDS: INSULIN LISPRO 100 UNITS/ML SUBCUT SCH (21:00)
[2022-07-16] MEDS: BLOOD SUGAR DIAGNOSTIC STRIP TEST SCH (21:00)
[2022-07-17] MEDS ORDERED: HYDRALAZINE 20MG/ML VIAL IV SCH
[2022-07-17] MEDS: BLOOD SUGAR DIAGNOSTIC STRIP TEST SCH ×4 (06:30→20:51)
[2022-07-17] MEDS: VANCOMYCIN 1000MG/20ML ORAL SOLN PO SCH ×5 (06:34→23:43)
[2022-07-17 06:59] LABS: HEMATOCRIT. 30.7 % (36.0-48.0); MEAN CORPUSCULAR HEMOGLOBIN 30.7 pg (28.0-32.0); MEAN PLATELET VOLUME 11.9 fl (7.4-10.4); PLATELET 225 x1000/uL (130-400); RED BLOOD CELL COUNT 3.27 mill/uL (4.2-5.4); RED CELL DISTRIBUTION WIDTH 16.4 % (11.6-14.6)
[2022-07-17 07:20] LABS: CHLORIDE 97 mEq/L (98-107)
[2022-07-17 08:00] VITALS: BP 164/46
[2022-07-17] MEDS: INSULIN LISPRO 100 UNITS/ML SUBCUT SCH ×4 (08:03→21:05)
[2022-07-17] MEDS: MEROPENEM 500 MG in SODIUM CHLORIDE 0.9% 50 ML IV SCH (08:03)
[2022-07-17] MEDS: NYSTATIN POWDER 15GM TOP SCH ×3 (08:03→18:38)
[2022-07-17] MEDS: PANTOPRAZOLE SODIUM 40 MG/VIAL IV SCH (09:14)
[2022-07-17] MEDS: CALCIUM CARBONATE/VITAMIN D3 500MG TABLET PO SCH ×2 (13:00→18:25)
[2022-07-17] MEDS: DORZOLAMIDE 2% OPHTH 10 ML BOTTLE BOTHEYE SCH ×2 (13:00→20:42)
[2022-07-17] MEDS ORDERED: IPRATROPIUM/ALBUTEROL 0.5-3(2.5)MG/3ML NEB HHN PRN (16:45)
[2022-07-17 17:00] LABS: HEPATITIS B SURFACE ANTIGEN NEGATIVE
[2022-07-17 20:23] VITALS: BP 156/51
[2022-07-17] MEDS: LOSARTAN POTASSIUM 100 MG TABLET PO SCH (20:42)
[2022-07-17] MEDS: MICONAZOLE NITRATE 100MG VAG SUPP VG SCH (20:42)
[2022-07-17] MEDS: HYDRALAZINE HCL 50MG TABLET PO SCH (20:43)
[2022-07-17 21:33] LABS: PLATELET ESTIMATE NORMAL
[2022-07-18] MEDS: VANCOMYCIN 1000MG/20ML ORAL SOLN PO SCH ×4 (06:02→23:35)
[2022-07-18] MEDS: BLOOD SUGAR DIAGNOSTIC STRIP TEST SCH ×4 (06:05→20:40)
[2022-07-18 07:04] LABS: BASOPHILS % 0.5 % (0.0-2.0); HEMATOCRIT. 31.1 % (36.0-48.0); HEMOGLOBIN. 10.2 g/dL (12.0-16.0); LYMPHOCYTES % 9.5 % (20.0-50.0); MEAN CORPUSCULAR HEMOGLOBIN 30.7 pg (28.0-32.0); MEAN CORPUSCULAR VOLUME 93.8 fL (81.0-99.0); MEAN PLATELET VOLUME 11.9 fl (7.4-10.4); MONOCYTES % 11.6 % (2.0-8.0); NEUTROPHILS % 78.4 % (40.0-76.0); PLATELET 274 x1000/uL (130-400); RED BLOOD CELL COUNT 3.32 mill/uL (4.2-5.4); RED CELL DISTRIBUTION WIDTH 16.3 % (11.6-14.6)
[2022-07-18 07:09] LABS: CHLORIDE 95 mEq/L (98-107)
[2022-07-18 07:28] LABS: TOTAL IRON BINDING CAPACITY 180 ug/dL (250-450)
[2022-07-18 08:00] VITALS: BP 171/50
[2022-07-18 08:01] LABS: FERRITIN 601 ng/mL (10-291)
[2022-07-18 08:12] LABS: VITAMIN B12 SERUM >2000 pg/mL pg/mL (211-911)
[2022-07-18] MEDS: MEROPENEM 500 MG in SODIUM CHLORIDE 0.9% 50 ML IV SCH (09:26)
[2022-07-18] MEDS: HYDRALAZINE HCL 50MG TABLET PO SCH (09:26)
[2022-07-18] MEDS: NYSTATIN POWDER 15GM TOP SCH (09:26)
[2022-07-18] MEDS: PANTOPRAZOLE SODIUM 40 MG/VIAL IV SCH (09:27)
[2022-07-18] MEDS: DORZOLAMIDE 2% OPHTH 10 ML BOTTLE BOTHEYE SCH ×2 (09:27→21:11)
[2022-07-18] MEDS: CALCIUM CARBONATE/VITAMIN D3 500MG TABLET PO SCH ×2 (09:27→18:08)
[2022-07-18] MEDS: INSULIN LISPRO 100 UNITS/ML SUBCUT SCH ×4 (09:28→21:00)
[2022-07-18] MEDS: HYDRALAZINE HCL 25MG TABLET PO SCH ×3 (12:45→21:11)
[2022-07-18] MEDS ORDERED: NYSTATIN/TRIAMCIN OINT 15GM TOP SCH (13:00)
[2022-07-18] MEDS: NYSTATIN 100,000 UNITS/GM OINT 15GM TOP SCH (18:08)
[2022-07-18] MEDS: TRIAMCINOLONE ACETONIDE 0.1 % OINT 15GM TOP SCH (18:08)
[2022-07-18 20:12] VITALS: BP 146/72
[2022-07-18] MEDS: LOSARTAN POTASSIUM 100 MG TABLET PO SCH (21:11)
[2022-07-18] MEDS: MICONAZOLE NITRATE 100MG VAG SUPP VG SCH (21:11)
[2022-07-19] MEDS: BLOOD SUGAR DIAGNOSTIC STRIP TEST SCH ×4 (06:05→21:08)
[2022-07-19] MEDS: VANCOMYCIN 1000MG/20ML ORAL SOLN PO SCH ×3 (06:05→16:42)
[2022-07-19] MEDS: INSULIN LISPRO 100 UNITS/ML SUBCUT SCH ×4 (06:05→21:19)
[2022-07-19 08:00] VITALS: BP 155/47
[2022-07-19] MEDS: HYDRALAZINE HCL 25MG TABLET PO SCH ×4 (09:27→21:07)
[2022-07-19] MEDS: CALCIUM CARBONATE/VITAMIN D3 500MG TABLET PO SCH ×2 (09:27→16:36)
[2022-07-19] MEDS: NYSTATIN 100,000 UNITS/GM OINT 15GM TOP SCH ×3 (09:29→16:42)
[2022-07-19] MEDS: TRIAMCINOLONE ACETONIDE 0.1 % OINT 15GM TOP SCH ×3 (09:29→16:42)
[2022-07-19] MEDS: DORZOLAMIDE 2% OPHTH 10 ML BOTTLE BOTHEYE SCH ×2 (09:29→21:04)
[2022-07-19] MEDS: PANTOPRAZOLE SODIUM 40 MG/VIAL IV SCH (09:44)
[2022-07-19] MEDS: MEROPENEM 500 MG in SODIUM CHLORIDE 0.9% 50 ML IV SCH (11:12)
[2022-07-19 16:48] LABS: T4 FREE 1.04 ng/dL (0.76-1.46)
[2022-07-19 20:00] VITALS: BP 116/41
[2022-07-19] MEDS: LOSARTAN POTASSIUM 100 MG TABLET PO SCH (21:07)
[2022-07-19] MEDS: MICONAZOLE NITRATE 100MG VAG SUPP VG SCH (21:08)
[2022-07-20] MEDS: VANCOMYCIN 1000MG/20ML ORAL SOLN PO SCH ×4 (00:40→17:45)
[2022-07-20] MEDS: BLOOD SUGAR DIAGNOSTIC STRIP TEST SCH ×4 (07:00→21:00)
[2022-07-20 08:00] VITALS: BP 124/52
[2022-07-20] MEDS: INSULIN LISPRO 100 UNITS/ML SUBCUT SCH ×4 (09:00→21:12)
[2022-07-20] MEDS: NYSTATIN 100,000 UNITS/GM OINT 15GM TOP SCH ×4 (09:32→21:07)
[2022-07-20] MEDS: TRIAMCINOLONE ACETONIDE 0.1 % OINT 15GM TOP SCH ×3 (09:32→17:45)
[2022-07-20] MEDS: CALCIUM CARBONATE/VITAMIN D3 500MG TABLET PO SCH ×2 (09:32→17:44)
[2022-07-20] MEDS: DORZOLAMIDE 2% OPHTH 10 ML BOTTLE BOTHEYE SCH ×2 (09:32→21:07)
[2022-07-20] MEDS: HYDRALAZINE HCL 25MG TABLET PO SCH ×4 (09:32→20:48)
[2022-07-20] MEDS: PANTOPRAZOLE SODIUM 40 MG/VIAL IV SCH (10:08)
[2022-07-20] MEDS: MEROPENEM 500 MG in SODIUM CHLORIDE 0.9% 50 ML IV SCH (10:09)
[2022-07-20 20:00] VITALS: BP 147/52
[2022-07-20] MEDS: LOSARTAN POTASSIUM 100 MG TABLET PO SCH (20:48)
[2022-07-20] MEDS: MICONAZOLE NITRATE 100MG VAG SUPP VG SCH (21:50)
[2022-07-20] MEDS: INSULIN GLARGINE 100 UNITS/ML SUBCUT SCH (22:19)
[2022-07-21] MEDS: VANCOMYCIN 1000MG/20ML ORAL SOLN PO SCH ×4 (00:50→18:01)
[2022-07-21] MEDS: BLOOD SUGAR DIAGNOSTIC STRIP TEST SCH ×4 (06:30→21:03)
[2022-07-21 07:14] LABS: HEMATOCRIT. 28.2 % (36.0-48.0); HEMOGLOBIN. 9.2 g/dL (12.0-16.0); MEAN CORPUSCULAR HEMOGLOBIN 30.2 pg (28.0-32.0); MEAN CORPUSCULAR VOLUME 92.9 fL (81.0-99.0); MEAN PLATELET VOLUME 10.5 fl (7.4-10.4); PLATELET 349 x1000/uL (130-400); RED BLOOD CELL COUNT 3.04 mill/uL (4.2-5.4); RED CELL DISTRIBUTION WIDTH 16.2 % (11.6-14.6)
[2022-07-21 08:00] VITALS: BP 182/59
[2022-07-21 08:45] LABS: PLATELET ESTIMATE NORMAL
[2022-07-21] MEDS: PANTOPRAZOLE SODIUM 40 MG/VIAL IV SCH (08:45)
[2022-07-21] MEDS: MEROPENEM 500 MG in SODIUM CHLORIDE 0.9% 50 ML IV SCH (08:45)
[2022-07-21] MEDS: CALCIUM CARBONATE/VITAMIN D3 500MG TABLET PO SCH ×2 (08:45→18:01)
[2022-07-21] MEDS: TRIAMCINOLONE ACETONIDE 0.1 % OINT 15GM TOP SCH ×3 (09:00→17:00)
[2022-07-21] MEDS ORDERED: HYDRALAZINE HCL 50MG TABLET PO NR (09:00)
[2022-07-21] MEDS: INSULIN LISPRO 100 UNITS/ML SUBCUT SCH ×4 (09:00→21:43)
[2022-07-21] MEDS: INSULIN GLARGINE 100 UNITS/ML SUBCUT SCH (10:00)
[2022-07-21] MEDS ORDERED: BARIUM SULFATE 176 GM SUSP.RECON ONE (10:35)
[2022-07-21] MEDS: DORZOLAMIDE 2% OPHTH 10 ML BOTTLE BOTHEYE SCH ×2 (10:50→21:15)
[2022-07-21] MEDS ORDERED: HYDRALAZINE HCL 25MG TABLET PO SCH (13:00)
[2022-07-21] MEDS: HYDRALAZINE HCL 100MG TABLET PO SCH ×3 (13:00→21:00)
[2022-07-21] MEDS: NYSTATIN 100,000 UNITS/GM OINT 15GM TOP SCH ×2 (13:15→17:00)
[2022-07-21] MEDS: CLONIDINE 0.1MG TABLET PO SCH ×2 (13:38→21:14)
[2022-07-21 20:00] VITALS: BP 176/65
[2022-07-21] MEDS: LOSARTAN POTASSIUM 100 MG TABLET PO SCH (21:14)
[2022-07-21] MEDS: ATORVASTATIN CALCIUM 10MG TABLET PO SCH (21:14)
[2022-07-21] MEDS: MICONAZOLE NITRATE 100MG VAG SUPP VG SCH (22:55)
[2022-07-22] VITALS (9 sets, daily range): BP systolic 125–185; BP diastolic 27–51
[2022-07-22] MEDS: VANCOMYCIN 1000MG/20ML ORAL SOLN PO SCH ×5 (00:47→23:28)
[2022-07-22] MEDS: BLOOD SUGAR DIAGNOSTIC STRIP TEST SCH ×4 (06:42→21:19)
[2022-07-22] MEDS: CLONIDINE 0.1MG TABLET PO SCH ×2 (06:42→20:55)
[2022-07-22 06:45] LABS: HEMATOCRIT. 24.8 % (36.0-48.0); HEMOGLOBIN. 8.1 g/dL (12.0-16.0); MEAN CORPUSCULAR HEMOGLOBIN 30.9 pg (28.0-32.0); MEAN CORPUSCULAR VOLUME 94.9 fL (81.0-99.0); MEAN PLATELET VOLUME 10.8 fl (7.4-10.4); PLATELET 313 x1000/uL (130-400); RED BLOOD CELL COUNT 2.61 mill/uL (4.2-5.4); RED CELL DISTRIBUTION WIDTH 16.4 % (11.6-14.6)
[2022-07-22] MEDS: INSULIN LISPRO 100 UNITS/ML SUBCUT SCH ×6 (07:00→18:01)
[2022-07-22] MEDS: HYDRALAZINE HCL 100MG TABLET PO SCH (08:59)
[2022-07-22] MEDS: MEROPENEM 500 MG in SODIUM CHLORIDE 0.9% 50 ML IV SCH (08:59)
[2022-07-22] MEDS: CALCIUM CARBONATE/VITAMIN D3 500MG TABLET PO SCH ×2 (08:59→17:48)
[2022-07-22] MEDS: PANTOPRAZOLE SODIUM 40 MG/VIAL IV SCH (08:59)
[2022-07-22] MEDS: TRIAMCINOLONE ACETONIDE 0.1 % OINT 15GM TOP SCH ×3 (09:16→17:49)
[2022-07-22] MEDS: DORZOLAMIDE 2% OPHTH 10 ML BOTTLE BOTHEYE SCH ×2 (09:16→20:54)
[2022-07-22] MEDS: NYSTATIN 100,000 UNITS/GM OINT 15GM TOP SCH ×3 (09:17→17:49)
[2022-07-22 09:19] LABS: BG BASE EXCESS 3.3 mmol/L (-2.0-2.0); BG CARBOXYHEMOGLOBIN 0.7 % (0.5-1.5); BG DEOXYHEMOGLOBIN 7.8 % (0.0-5.0); BG HCO3 ACT 29.1 mmol/L (22.0-26.0); BG METHEMOGLOBIN 0.2 % (0.0-1.5); BG OXYGEN SATURATION 92.1 % (92.0-98.5); BG OXYHEMOGLOBIN 91.3 % (94.0-97.0); BG PCO2 51.2 mmHg (35.0-45.0); BG PH 7.373 (7.350-7.450); BG PO2 66.9 mmHg (75.0-100.0); BG SAMPLE SITE RIGHT BRACHIAL; BG TOTAL HEMOGLOBIN 8.8 g/dL (12.0-18.0); BG VENT MODE ROOM AIR
[2022-07-22 10:01] LABS: PLATELET ESTIMATE NORMAL
[2022-07-22 10:39] LABS: INR 1.1; PROTHROMBIN TIME 11.5 sec (9.6-11.0)
[2022-07-22 11:10] LABS: HEPATITIS B SURFACE ANTIGEN NEGATIVE
[2022-07-22] MEDS: HYDRALAZINE HCL 50MG TABLET PO SCH (18:08)
[2022-07-22] MEDS: ATORVASTATIN CALCIUM 10MG TABLET PO SCH (20:53)
[2022-07-22] MEDS: MICONAZOLE NITRATE 100MG VAG SUPP VG SCH (20:54)
[2022-07-23] MEDS: HYDRALAZINE HCL 50MG TABLET PO SCH ×3 (00:49→17:25)
[2022-07-23] MEDS: VANCOMYCIN 1000MG/20ML ORAL SOLN PO SCH ×3 (06:07→17:22)
[2022-07-23] MEDS: BLOOD SUGAR DIAGNOSTIC STRIP TEST SCH ×4 (06:10→21:35)
[2022-07-23] MEDS: INSULIN LISPRO 100 UNITS/ML SUBCUT SCH ×6 (06:11→17:34)
[2022-07-23 06:14] LABS: HEMOGLOBIN. 9.6 g/dL (12.0-16.0); MEAN CORPUSCULAR HEMOGLOBIN 31.5 pg (28.0-32.0); MEAN CORPUSCULAR VOLUME 95.3 fL (81.0-99.0); MEAN PLATELET VOLUME 11.1 fl (7.4-10.4); PLATELET 283 x1000/uL (130-400); RED BLOOD CELL COUNT 3.04 mill/uL (4.2-5.4); RED CELL DISTRIBUTION WIDTH 15.2 % (11.6-14.6)
[2022-07-23 08:00] VITALS: BP 110/37
[2022-07-23] MEDS: DORZOLAMIDE 2% OPHTH 10 ML BOTTLE BOTHEYE SCH ×2 (08:57→21:33)
[2022-07-23] MEDS: FAMOTIDINE 20MG/2ML VIAL IV SCH (08:58)
[2022-07-23] MEDS: TRIAMCINOLONE ACETONIDE 0.1 % OINT 15GM TOP SCH ×3 (08:58→17:25)
[2022-07-23] MEDS: CALCIUM CARBONATE/VITAMIN D3 500MG TABLET PO SCH ×2 (08:58→17:25)
[2022-07-23] MEDS: NYSTATIN 100,000 UNITS/GM OINT 15GM TOP SCH (08:58)
[2022-07-23] MEDS: CLONIDINE 0.1MG TABLET PO SCH ×2 (09:00→21:34)
[2022-07-23] MEDS: MEROPENEM 500 MG in SODIUM CHLORIDE 0.9% 50 ML IV SCH (09:21)
[2022-07-23] MEDS: NYSTATIN 100,000 UNITS/GM CREAM 15GM TOP SCH ×2 (13:18→17:23)
[2022-07-23] MEDS ORDERED: CLONIDINE 0.1MG TABLET PO NR (16:15)
[2022-07-23] MEDS: NITROGLYCERIN OINT 1GM/INCH UDPKT TD SCH ×2 (16:32→21:34)
[2022-07-23 17:44] LABS: PLATELET ESTIMATE NORMAL
[2022-07-23] MEDS ORDERED: CLONIDINE 0.1MG TABLET PO PRN (19:00)
[2022-07-23 20:00] VITALS: BP 156/50
[2022-07-23] MEDS: ATORVASTATIN CALCIUM 10MG TABLET PO SCH (21:33)
[2022-07-23] MEDS ORDERED: INSULIN GLARGINE 100 UNITS/ML SUBCUT SCH (22:00)
[2022-07-24] MEDS: HYDRALAZINE HCL 50MG TABLET PO SCH ×4 (00:06→17:00)
[2022-07-24] MEDS: VANCOMYCIN 1000MG/20ML ORAL SOLN PO SCH ×4 (00:06→17:07)
[2022-07-24] MEDS: BLOOD SUGAR DIAGNOSTIC STRIP TEST SCH ×4 (05:50→21:00)
[2022-07-24] MEDS: NITROGLYCERIN OINT 1GM/INCH UDPKT TD SCH ×2 (06:00→13:47)
[2022-07-24 06:44] LABS: HEMATOCRIT. 25.9 % (36.0-48.0); HEMOGLOBIN. 8.9 g/dL (12.0-16.0); MEAN CORPUSCULAR HEMOGLOBIN 32.2 pg (28.0-32.0); MEAN CORPUSCULAR VOLUME 93.5 fL (81.0-99.0); MEAN PLATELET VOLUME 11.1 fl (7.4-10.4); PLATELET 268 x1000/uL (130-400); RED BLOOD CELL COUNT 2.77 mill/uL (4.2-5.4); RED CELL DISTRIBUTION WIDTH 15.5 % (11.6-14.6)
[2022-07-24] MEDS: INSULIN LISPRO 100 UNITS/ML SUBCUT SCH ×6 (07:00→17:21)
[2022-07-24 07:02] LABS: CHLORIDE 95 mEq/L (98-107)
[2022-07-24 08:00] VITALS: BP 158/49
[2022-07-24] MEDS: FAMOTIDINE 20MG/2ML VIAL IV SCH (09:57)
[2022-07-24] MEDS: TRIAMCINOLONE ACETONIDE 0.1 % OINT 15GM TOP SCH ×3 (09:59→17:06)
[2022-07-24] MEDS: NYSTATIN 100,000 UNITS/GM CREAM 15GM TOP SCH ×3 (09:59→17:06)
[2022-07-24] MEDS: CALCIUM CARBONATE/VITAMIN D3 500MG TABLET PO SCH ×2 (09:59→17:06)
[2022-07-24] MEDS: DORZOLAMIDE 2% OPHTH 10 ML BOTTLE BOTHEYE SCH (10:00)
[2022-07-24] MEDS: MEROPENEM 500 MG in SODIUM CHLORIDE 0.9% 50 ML IV SCH (10:00)
[2022-07-24] MEDS: CLONIDINE 0.1MG TABLET PO SCH ×2 (14:00→14:51)
[2022-07-24 20:00] VITALS: BP 166/54
[2022-07-24 21:15] LABS: PLATELET ESTIMATE NORMAL
[2022-07-25] MEDS: DORZOLAMIDE 2% OPHTH 10 ML BOTTLE BOTHEYE SCH ×2 (00:01→09:55)
[2022-07-25] MEDS: ATORVASTATIN CALCIUM 10MG TABLET PO SCH (00:01)
[2022-07-25] MEDS: NITROGLYCERIN OINT 1GM/INCH UDPKT TD SCH ×2 (00:02→05:39)
[2022-07-25] MEDS: VANCOMYCIN 1000MG/20ML ORAL SOLN PO SCH ×4 (00:03→17:50)
[2022-07-25] MEDS: HYDRALAZINE HCL 50MG TABLET PO SCH ×3 (00:04→17:44)
[2022-07-25] MEDS: EPOETIN ALFA-EPBX 4,000 UNIT/ML VIAL SUBCUT SCH (00:04)
[2022-07-25] MEDS: CLONIDINE 0.1MG TABLET PO SCH ×3 (00:06→13:30)
[2022-07-25] MEDS: MEROPENEM 500 MG in SODIUM CHLORIDE 0.9% 50 ML IV SCH (00:10)
[2022-07-25] MEDS: BLOOD SUGAR DIAGNOSTIC STRIP TEST SCH ×4 (05:40→21:00)
[2022-07-25 06:51] LABS: HEMATOCRIT. 27.2 % (36.0-48.0); HEMOGLOBIN. 9.1 g/dL (12.0-16.0); MEAN CORPUSCULAR HEMOGLOBIN 31.4 pg (28.0-32.0); MEAN PLATELET VOLUME 10.7 fl (7.4-10.4); PLATELET 270 x1000/uL (130-400); RED BLOOD CELL COUNT 2.89 mill/uL (4.2-5.4); RED CELL DISTRIBUTION WIDTH 15.4 % (11.6-14.6)
[2022-07-25] MEDS: INSULIN LISPRO 100 UNITS/ML SUBCUT SCH ×7 (07:00→17:00)
[2022-07-25 08:00] VITALS: BP 169/57
[2022-07-25] MEDS: CALCIUM CARBONATE/VITAMIN D3 500MG TABLET PO SCH ×2 (09:54→17:44)
[2022-07-25] MEDS: ISOSORBIDE MONONITRATE 30MG TABLET SR 24HR PO SCH (09:55)
[2022-07-25] MEDS: TRIAMCINOLONE ACETONIDE 0.1 % OINT 15GM TOP SCH ×3 (09:55→17:44)
[2022-07-25] MEDS: NYSTATIN 100,000 UNITS/GM CREAM 15GM TOP SCH ×3 (09:56→17:44)
[2022-07-25] MEDS: FAMOTIDINE 20MG/2ML VIAL IV SCH (10:24)
[2022-07-25 11:03] LABS: PLATELET ESTIMATE NORMAL
[2022-07-25 17:06] LABS: 25-HYDROXY VITAMIN D3 33 ng/mL (.)
[2022-07-25 20:00] VITALS: BP 150/54
[2022-07-26] MEDS: DORZOLAMIDE 2% OPHTH 10 ML BOTTLE BOTHEYE SCH ×3 (00:13→21:09)
[2022-07-26] MEDS: ATORVASTATIN CALCIUM 10MG TABLET PO SCH ×2 (00:13→21:09)
[2022-07-26] MEDS: CLONIDINE 0.1MG TABLET PO SCH ×3 (00:14→13:50)
[2022-07-26] MEDS: HYDRALAZINE HCL 50MG TABLET PO SCH ×3 (00:14→16:54)
[2022-07-26] MEDS: BLOOD SUGAR DIAGNOSTIC STRIP TEST SCH ×4 (06:20→21:09)
[2022-07-26] MEDS: INSULIN LISPRO 100 UNITS/ML SUBCUT SCH ×6 (06:38→16:51)
[2022-07-26 06:53] LABS: HEMATOCRIT. 25.9 % (36.0-48.0); HEMOGLOBIN. 8.6 g/dL (12.0-16.0); MEAN CORPUSCULAR HEMOGLOBIN 31.4 pg (28.0-32.0); MEAN CORPUSCULAR VOLUME 94.6 fL (81.0-99.0); MEAN PLATELET VOLUME 10.9 fl (7.4-10.4); PLATELET 257 x1000/uL (130-400); RED BLOOD CELL COUNT 2.74 mill/uL (4.2-5.4); RED CELL DISTRIBUTION WIDTH 15.5 % (11.6-14.6)
[2022-07-26 08:00] VITALS: BP 148/37
[2022-07-26] MEDS: TRIAMCINOLONE ACETONIDE 0.1 % OINT 15GM TOP SCH ×3 (08:57→16:54)
[2022-07-26] MEDS: CALCIUM CARBONATE/VITAMIN D3 500MG TABLET PO SCH ×2 (08:57→16:54)
[2022-07-26] MEDS: NYSTATIN 100,000 UNITS/GM CREAM 15GM TOP SCH ×3 (08:57→16:54)
[2022-07-26] MEDS ORDERED: FAMOTIDINE 20MG TABLET PO SCH (09:00)
[2022-07-26] MEDS: ISOSORBIDE MONONITRATE 30MG TABLET SR 24HR PO SCH (09:04)
[2022-07-26] MEDS ORDERED: ERGOCALCIFEROL 50000UNITS CAPSULE PO SCH (10:23)
[2022-07-26 13:15] LABS: PLATELET ESTIMATE NORMAL
[2022-07-26 15:02] VITALS: BP 148/37
[2022-07-26 20:00] VITALS: BP 132/54
[2022-07-26] MEDS: EPOETIN ALFA-EPBX 4,000 UNIT/ML VIAL SUBCUT SCH (21:09)
== END 2022-07-26 21:40 | disposition home health service (06) | DRG 73 ==
PROVIDERS: ADMIT Physical Medicine & Rehabilitation Spinal Cord Injury Medicine; ATTEND Internal Medicine
PROC: 5A1D70Z Performance of Urinary Filtration, Intermittent, Less than 6 Hours Per Day (ICD-10-PCS; principal; 2022-07-18)
PROC: 5A1D70Z Performance of Urinary Filtration, Intermittent, Less than 6 Hours Per Day (ICD-10-PCS; 2022-07-21)
PROC: 30233N1 Transfusion of Nonautologous Red Blood Cells into Peripheral Vein, Percutaneous Approach (ICD-10-PCS; 2022-07-22)
PROC: 5A1D70Z Performance of Urinary Filtration, Intermittent, Less than 6 Hours Per Day (ICD-10-PCS; 2022-07-23)
PROC: 5A1D70Z Performance of Urinary Filtration, Intermittent, Less than 6 Hours Per Day (ICD-10-PCS; 2022-07-24)
PROC: 5A1D70Z Performance of Urinary Filtration, Intermittent, Less than 6 Hours Per Day (ICD-10-PCS; 2022-07-26)
DX: G62.81 Critical illness polyneuropathy (principal); A41.59 Other Gram-negative sepsis; E43 Unspecified severe protein-calorie malnutrition; G93.41 Metabolic encephalopathy; N18.6 End stage renal disease; J96.01 Acute respiratory failure with hypoxia; E87.1 Hypo-osmolality and hyponatremia; E87.2 Acidosis; R18.8 Other ascites; J84.9 Interstitial pulmonary disease, unspecified; I12.0 Hypertensive chronic kidney disease with stage 5 chronic kidney disease or end stage renal disease; K91.840 Postprocedural hemorrhage of a digestive system organ or structure following a digestive system procedure; S36.039A Unspecified laceration of spleen, initial encounter; Z68.1 Body mass index [BMI] 19.9 or less, adult; D64.9 Anemia, unspecified; E11.22 Type 2 diabetes mellitus with diabetic chronic kidney disease; E86.1 Hypovolemia; E87.8 Other disorders of electrolyte and fluid balance, not elsewhere classified; I27.20 Pulmonary hypertension, unspecified; F03.90 Unspecified dementia, unspecified severity, without behavioral disturbance, psychotic disturbance, mood disturbance, and anxiety; E11.51 Type 2 diabetes mellitus with diabetic peripheral angiopathy without gangrene; E11.649 Type 2 diabetes mellitus with hypoglycemia without coma; E78.00 Pure hypercholesterolemia, unspecified; F32.A Depression, unspecified; F41.9 Anxiety disorder, unspecified; Z96.1 Presence of intraocular lens; I08.2 Rheumatic disorders of both aortic and tricuspid valves; B96.20 Unspecified Escherichia coli [E. coli] as the cause of diseases classified elsewhere; R13.10 Dysphagia, unspecified; Y83.8 Other surgical procedures as the cause of abnormal reaction of the patient, or of later complication, without mention of misadventure at the time of the procedure; X58.XXXA Exposure to other specified factors, initial encounter; Z90.81 Acquired absence of spleen; Z99.2 Dependence on renal dialysis; Z86.73 Personal history of transient ischemic attack (TIA), and cerebral infarction without residual deficits; Z83.3 Family history of diabetes mellitus; Z79.4 Long term (current) use of insulin; Z63.4 Disappearance and death of family member; Z98.42 Cataract extraction status, left eye; Z98.41 Cataract extraction status, right eye; Z90.711 Acquired absence of uterus with remaining cervical stump; Z82.49 Family history of ischemic heart disease and other diseases of the circulatory system; Z80.0 Family history of malignant neoplasm of digestive organs; Z79.899 Other long term (current) drug therapy; Y93.89 Activity, other specified; Y92.89 Other specified places as the place of occurrence of the external cause; Y99.8 Other external cause status; R26.9 Unspecified abnormalities of gait and mobility; R53.81 Other malaise
CPT/HCPCS: 36415; 36600; 71045; 74230; 80048; 80053; 82306; 82375; 82533; 82607; 82728; 82746; 82805; 82947; 82962; 83540; 83550; 84145; 84439; 84443; 84481; 84484; 85025; 86376; 86705; 86709; 86803; 86850; 86900; 86920; 87070; 87077; 87186; 87340; 92523; 92610; 92611; 93970; 97110; 97116; 97162; 97166; 97530; 97535; A6261; C9113; J0885; J1815; J2185; J3370; J3490; P9016

== ENCOUNTER 2022-11-18 11:21 | Emergency (ER) | payer MEDICARE, MEDICAID ==
[~2022-11-18] VITALS: Ht 152.4 cm; Wt 44.0 kg
[2022-11-18 11:29] VITALS: BP 145/57
[2022-11-18 20:14] LABS: CHLORIDE 94 mEq/L (98-107)
[2022-11-18 20:18] LABS: HEMATOCRIT. 23.8 % (36.0-48.0); HEMOGLOBIN. 7.8 g/dL (12.0-16.0); MEAN CORPUSCULAR HEMOGLOBIN 30.3 pg (28.0-32.0); MEAN PLATELET VOLUME 10.3 fl (7.4-10.4); PLATELET 288 x1000/uL (130-400); RED BLOOD CELL COUNT 2.57 mill/uL (4.2-5.4); RED CELL DISTRIBUTION WIDTH 25.8 % (11.6-14.6)
[2022-11-18 21:08] LABS: NUCLEATED RED BLOOD CELLS 2 /100 WBC; PLATELET ESTIMATE NORMAL
[2022-11-18 22:24] LABS: BG BASE EXCESS 4.5 mmol/L (-2.0-2.0); BG CARBOXYHEMOGLOBIN 0.2 % (0.5-1.5); BG DEOXYHEMOGLOBIN 2.7 % (0.0-5.0); BG FRACTION INSPIRED OXYGEN 21; BG HCO3 ACT 27.3 mmol/L (22.0-26.0); BG METHEMOGLOBIN 0.1 % (0.0-1.5); BG OXYGEN SATURATION 97.3 % (92.0-98.5); BG PCO2 33.2 mmHg (35.0-45.0); BG PH 7.533 (7.350-7.450); BG SAMPLE SITE RIGHT RADIAL; BG TOTAL HEMOGLOBIN 7.7 g/dL (12.0-18.0); BG VENT MODE ROOM AIR
[2022-11-18] MEDS ORDERED: ACETAMINOPHEN 325MG TABLET PO ONE (22:30)
== END 2022-11-18 23:22 | disposition left against medical advice (07) ==
LOC: ER 11:21
DX: R42 Dizziness and giddiness (principal); I10 Essential (primary) hypertension; E11.9 Type 2 diabetes mellitus without complications; Z53.21 Procedure and treatment not carried out due to patient leaving prior to being seen by health care provider; Z88.5 Allergy status to narcotic agent; Z91.041 Radiographic dye allergy status; Z79.899 Other long term (current) drug therapy; Z98.890 Other specified postprocedural states; Z90.49 Acquired absence of other specified parts of digestive tract
CPT/HCPCS: 36415; 36600; 80053; 82375; 82805; 83735; 84484; 85025; 86850; 86900; 93005; 99285

== ENCOUNTER 2022-12-22 17:49 | Inpatient (IN) | payer MEDICARE, MEDICAID ==
[~2022-12-22] VITALS: Ht 152.4 cm; Wt 61.7 kg
[~2022-12-22 17:49] MED LIST changes: -CALC-1249 MT; +CALC-1249 PO; +CALC667C PO; +LINA5TAB PO; +LOSA100T32 PO; -LOSA50TA41 MT; +MECL-217 PO; -NEPHROVITE PO; +NEPVIT PO
[2022-12-22] MEDS ORDERED: ASPIRIN 81MG TABLET PO ONE (20:00)
[2022-12-22 20:17] LABS: HEMATOCRIT. 28.1 % (36.0-48.0); HEMOGLOBIN. 9.6 g/dL (12.0-16.0); MEAN CORPUSCULAR HEMOGLOBIN 32.3 pg (28.0-32.0); MEAN CORPUSCULAR VOLUME 94.9 fL (81.0-99.0); MEAN PLATELET VOLUME 9.6 fl (7.4-10.4); PLATELET 323 x1000/uL (130-400); RED BLOOD CELL COUNT 2.96 mill/uL (4.2-5.4); RED CELL DISTRIBUTION WIDTH 20.4 % (11.6-14.6)
[2022-12-22 20:24] LABS: CHLORIDE 94 mEq/L (98-107)
[2022-12-22 21:40] LABS: PLATELET ESTIMATE NORMAL
[2022-12-22] MEDS ORDERED: IPRATROPIUM/ALBUTEROL 0.5-3(2.5)MG/3ML NEB HHN PRN (23:00)
[2022-12-22] MEDS ORDERED: ACETAMINOPHEN 325MG TABLET PO PRN (23:00)
[2022-12-22] MEDS ORDERED: DOCUSATE SODIUM 100MG CAPSULE PO PRN (23:00)
[2022-12-22] MEDS ORDERED: CLONIDINE 0.1MG TABLET PO PRN (23:00)
[2022-12-22] MEDS ORDERED: HYDROCODONE/ACETAMINOPHEN 5/325MG TABLET PO PRN (23:00)
[2022-12-22] MEDS ORDERED: ONDANSETRON HCL 4MG/2ML INJ IV PRN (23:00)
[2022-12-22] MEDS ORDERED: LORAZEPAM 0.5MG TABLET PO PRN (23:00)
[2022-12-22] MEDS ORDERED: ASPIRIN 81MG TABLET PO NR (23:15)
[2022-12-23] VITALS (13 sets, daily range): BP systolic 92–150; BP diastolic 42–59
[2022-12-23 07:36] LABS: HEMATOCRIT. 26.9 % (36.0-48.0); HEMOGLOBIN. 8.7 g/dL (12.0-16.0); MEAN CORPUSCULAR HEMOGLOBIN 30.6 pg (28.0-32.0); MEAN CORPUSCULAR VOLUME 95.2 fL (81.0-99.0); PLATELET 328 x1000/uL (130-400); RED BLOOD CELL COUNT 2.83 mill/uL (4.2-5.4); RED CELL DISTRIBUTION WIDTH 20.1 % (11.6-14.6)
[2022-12-23] MEDS ORDERED: DEXTROSE 50% WATER 50ML SYRINGE IV PRN (10:00)
[2022-12-23] MEDS ORDERED: AMLODIPINE 5MG TABLET PO NR (10:45)
[2022-12-23] MEDS: BLOOD SUGAR DIAGNOSTIC STRIP TEST SCH ×3 (11:28→21:55)
[2022-12-23] MEDS: INSULIN LISPRO 100 UNITS/ML SUBCUT SCH ×3 (13:23→21:00)
[2022-12-23 13:38] LABS: PLATELET ESTIMATE NORMAL
[2022-12-23 13:52] LABS: HEPATITIS B SURFACE AB 158.6 mIU/mL
[2022-12-23] MEDS ORDERED: MECLIZINE 12.5MG TABLET PO PRN (14:00)
[2022-12-23 14:02] LABS: HEPATITIS B SURFACE ANTIGEN NEGATIVE
[2022-12-23] MEDS ORDERED: NALOXONE HCL 0.4MG/ML VIAL IV PRN (18:00)
[2022-12-23] MEDS ORDERED: ALBUTEROL (0.083%) 2.5MG/3ML NEB HHN PRN (18:00)
[2022-12-23] MEDS ORDERED: IPRATROPIUM BROMIDE (0.02%) 0.5MG/2.5ML NEB HHN PRN (18:00)
[2022-12-23] MEDS: HYDRALAZINE HCL 50MG TABLET PO SCH (18:43)
[2022-12-23] MEDS: INSULIN GLARGINE 100 UNITS/ML SUBCUT SCH (22:34)
[2022-12-24] VITALS (7 sets, daily range): BP systolic 130–151; BP diastolic 42–80
[2022-12-24 07:06] LABS: HEMATOCRIT. 26.7 % (36.0-48.0); HEMOGLOBIN. 8.5 g/dL (12.0-16.0); MEAN CORPUSCULAR HEMOGLOBIN 30.7 pg (28.0-32.0); MEAN CORPUSCULAR VOLUME 96.6 fL (81.0-99.0); MEAN PLATELET VOLUME 10.3 fl (7.4-10.4); PLATELET 318 x1000/uL (130-400); RED BLOOD CELL COUNT 2.76 mill/uL (4.2-5.4); RED CELL DISTRIBUTION WIDTH 20.5 % (11.6-14.6)
[2022-12-24] MEDS: INSULIN LISPRO 100 UNITS/ML SUBCUT SCH ×4 (07:10→21:00)
[2022-12-24] MEDS: BLOOD SUGAR DIAGNOSTIC STRIP TEST SCH ×4 (07:23→21:00)
[2022-12-24] MEDS: PANTOPRAZOLE 40MG DR TABLET PO SCH (08:31)
[2022-12-24] MEDS: FOLIC ACID/VITAMIN B COMP W-C TABLET PO SCH (08:31)
[2022-12-24] MEDS: HYDRALAZINE HCL 50MG TABLET PO SCH ×3 (08:31→16:33)
[2022-12-24] MEDS: ATORVASTATIN CALCIUM 10MG TABLET PO SCH (08:31)
[2022-12-24] MEDS ORDERED: AMLODIPINE 5MG TABLET PO SCH (09:00)
[2022-12-24] MEDS ORDERED: POTASSIUM CHLORIDE 20MEQ/PACKET PO NR (09:00)
[2022-12-24 12:54] LABS: PLATELET ESTIMATE NORMAL
[2022-12-24] MEDS ORDERED: POTASSIUM CHLORIDE 10MEQ TABLET SR PO NR (13:00)
[2022-12-24] MEDS: CEFTRIAXONE 1,000 MG in DEXTROSE 5% WATER 50 ML IV SCH (15:28)
[2022-12-24] MEDS ORDERED: CEFTRIAXONE 1 G PREMIX 50 ML IV SCH (16:00)
[2022-12-24] MEDS ORDERED: AZITHROMYCIN 500 MG in DEXT 5% WATER 250 ML IV SCH (16:00)
[2022-12-24 16:05] LABS: PHOSPHORUS 3.8 mg/dL (2.5-4.9)
[2022-12-24] MEDS: INSULIN GLARGINE 100 UNITS/ML SUBCUT SCH (22:00)
[2022-12-24] MEDS: AMLODIPINE 5MG TABLET PO SCH (22:43)
[2022-12-25] VITALS (13 sets, daily range): BP systolic 102–142; BP diastolic 44–80
[2022-12-25 06:47] LABS: HEMOGLOBIN. 8.5 g/dL (12.0-16.0); MEAN CORPUSCULAR HEMOGLOBIN 31.6 pg (28.0-32.0); MEAN CORPUSCULAR VOLUME 96.8 fL (81.0-99.0); MEAN PLATELET VOLUME 10.5 fl (7.4-10.4); PLATELET 309 x1000/uL (130-400); RED BLOOD CELL COUNT 2.69 mill/uL (4.2-5.4); RED CELL DISTRIBUTION WIDTH 20.1 % (11.6-14.6)
[2022-12-25] MEDS: BLOOD SUGAR DIAGNOSTIC STRIP TEST SCH ×4 (06:51→20:30)
[2022-12-25] MEDS: INSULIN LISPRO 100 UNITS/ML SUBCUT SCH ×4 (06:59→20:57)
[2022-12-25] MEDS: FOLIC ACID/VITAMIN B COMP W-C TABLET PO SCH (08:35)
[2022-12-25] MEDS: AMLODIPINE 5MG TABLET PO SCH ×2 (08:35→20:29)
[2022-12-25] MEDS: HYDRALAZINE HCL 50MG TABLET PO SCH ×3 (08:35→16:40)
[2022-12-25] MEDS: ATORVASTATIN CALCIUM 10MG TABLET PO SCH (08:35)
[2022-12-25] MEDS: PANTOPRAZOLE 40MG DR TABLET PO SCH (08:35)
[2022-12-25 13:45] LABS: PLATELET ESTIMATE NORMAL
[2022-12-25] MEDS: CEFTRIAXONE 1,000 MG in DEXTROSE 5% WATER 50 ML IV SCH (16:41)
[2022-12-25] MEDS: AZITHROMYCIN 500 MG TABLET PO SCH (16:42)
[2022-12-25] MEDS: INSULIN GLARGINE 100 UNITS/ML SUBCUT SCH (20:58)
[2022-12-25] MEDS ORDERED: EPOETIN ALFA-EPBX 4,000 UNIT/ML VIAL SUBCUT NR (21:00)
[2022-12-26] VITALS: BP 149/50
[2022-12-26 04:00] VITALS: BP 136/45
[2022-12-26] MEDS: BLOOD SUGAR DIAGNOSTIC STRIP TEST SCH ×4 (05:04→20:09)
[2022-12-26] MEDS: INSULIN LISPRO 100 UNITS/ML SUBCUT SCH ×4 (06:20→21:37)
[2022-12-26 08:00] VITALS: BP 163/60
[2022-12-26] MEDS: ATORVASTATIN CALCIUM 10MG TABLET PO SCH (09:43)
[2022-12-26] MEDS: FOLIC ACID/VITAMIN B COMP W-C TABLET PO SCH (09:43)
[2022-12-26] MEDS: HYDRALAZINE HCL 50MG TABLET PO SCH ×3 (09:44→17:00)
[2022-12-26] MEDS: AMLODIPINE 5MG TABLET PO SCH ×2 (09:44→21:00)
[2022-12-26] MEDS: FAMOTIDINE 20MG TABLET PO SCH (09:44)
[2022-12-26 12:00] VITALS: BP 144/51
[2022-12-26 16:00] VITALS: BP 118/37
[2022-12-26] MEDS: CEFTRIAXONE 1,000 MG in DEXTROSE 5% WATER 50 ML IV SCH (17:06)
[2022-12-26] MEDS: AZITHROMYCIN 500 MG TABLET PO SCH (17:06)
[2022-12-26] MEDS: ACETAMINOPHEN 325MG TABLET PO PRN (17:10)
[2022-12-26 20:00] VITALS: BP 130/44
[2022-12-26] MEDS: INSULIN GLARGINE 100 UNITS/ML SUBCUT SCH (21:37)
[2022-12-27] VITALS (14 sets, daily range): BP systolic 104–164; BP diastolic 39–88
[2022-12-27] MEDS: BLOOD SUGAR DIAGNOSTIC STRIP TEST SCH ×4 (05:37→21:47)
[2022-12-27] MEDS: INSULIN LISPRO 100 UNITS/ML SUBCUT SCH ×4 (05:37→21:46)
[2022-12-27] MEDS: AMLODIPINE 5MG TABLET PO SCH ×2 (09:00→21:47)
[2022-12-27] MEDS: HYDRALAZINE HCL 50MG TABLET PO SCH ×3 (09:00→16:31)
[2022-12-27] MEDS: FAMOTIDINE 20MG TABLET PO SCH (09:38)
[2022-12-27] MEDS: FOLIC ACID/VITAMIN B COMP W-C TABLET PO SCH (09:38)
[2022-12-27] MEDS: ATORVASTATIN CALCIUM 10MG TABLET PO SCH (09:38)
[2022-12-27 10:10] LABS: HEMATOCRIT. 25.6 % (36.0-48.0); HEMOGLOBIN. 8.1 g/dL (12.0-16.0); MEAN CORPUSCULAR HEMOGLOBIN 30.7 pg (28.0-32.0); MEAN PLATELET VOLUME 10.7 fl (7.4-10.4); PLATELET 323 x1000/uL (130-400); RED BLOOD CELL COUNT 2.64 mill/uL (4.2-5.4); RED CELL DISTRIBUTION WIDTH 19.9 % (11.6-14.6)
[2022-12-27 16:29] LABS: PLATELET ESTIMATE NORMAL
[2022-12-27] MEDS: CEFTRIAXONE 1,000 MG in DEXTROSE 5% WATER 50 ML IV SCH (16:31)
[2022-12-27] MEDS: AZITHROMYCIN 500 MG TABLET PO SCH (17:38)
[2022-12-27] MEDS ORDERED: EPOETIN ALFA-EPBX 4,000 UNIT/ML VIAL SUBCUT SCH (21:00)
[2022-12-27] MEDS: INSULIN GLARGINE 100 UNITS/ML SUBCUT SCH (21:46)
[2022-12-27] MEDS: ACETAMINOPHEN 325MG TABLET PO PRN (21:53)
[2022-12-28] VITALS: BP 110/55
[2022-12-28 04:00] VITALS: BP 137/46
[2022-12-28] MEDS: BLOOD SUGAR DIAGNOSTIC STRIP TEST SCH ×4 (05:56→21:01)
[2022-12-28] MEDS: INSULIN LISPRO 100 UNITS/ML SUBCUT SCH ×4 (05:57→21:35)
[2022-12-28 06:41] LABS: HEMATOCRIT. 24.6 % (36.0-48.0); MEAN CORPUSCULAR HEMOGLOBIN 31.4 pg (28.0-32.0); MEAN CORPUSCULAR VOLUME 96.8 fL (81.0-99.0); MEAN PLATELET VOLUME 10.8 fl (7.4-10.4); PLATELET 291 x1000/uL (130-400); RED BLOOD CELL COUNT 2.54 mill/uL (4.2-5.4); RED CELL DISTRIBUTION WIDTH 20.2 % (11.6-14.6)
[2022-12-28 08:00] VITALS: BP 143/50
[2022-12-28] MEDS: HYDRALAZINE HCL 50MG TABLET PO SCH ×3 (09:18→17:49)
[2022-12-28] MEDS: ATORVASTATIN CALCIUM 10MG TABLET PO SCH (09:18)
[2022-12-28] MEDS: FOLIC ACID/VITAMIN B COMP W-C TABLET PO SCH (09:19)
[2022-12-28] MEDS: AMLODIPINE 5MG TABLET PO SCH ×2 (09:19→21:35)
[2022-12-28] MEDS: FAMOTIDINE 20MG TABLET PO SCH (09:20)
[2022-12-28 12:00] VITALS: BP 145/50
[2022-12-28 13:20] LABS: PLATELET ESTIMATE NORMAL
[2022-12-28 16:00] VITALS: BP 142/56
[2022-12-28] MEDS: AZITHROMYCIN 500 MG TABLET PO SCH (16:00)
[2022-12-28] MEDS: CEFTRIAXONE 1,000 MG in DEXTROSE 5% WATER 50 ML IV SCH (16:00)
[2022-12-28] MEDS: VANCOMYCIN 1000MG/20ML ORAL SOLN PO SCH ×2 (19:02→23:26)
[2022-12-28 20:00] VITALS: BP 122/42
[2022-12-28] MEDS: INSULIN GLARGINE 100 UNITS/ML SUBCUT SCH (21:34)
[2022-12-29] VITALS (14 sets, daily range): BP systolic 112–146; BP diastolic 40–64
[2022-12-29] MEDS: BLOOD SUGAR DIAGNOSTIC STRIP TEST SCH ×5 (06:32→21:00)
[2022-12-29] MEDS: INSULIN LISPRO 100 UNITS/ML SUBCUT SCH ×5 (06:32→22:25)
[2022-12-29] MEDS: VANCOMYCIN 1000MG/20ML ORAL SOLN PO SCH ×2 (06:33→12:16)
[2022-12-29 06:35] LABS: HEMATOCRIT. 22.8 % (36.0-48.0); HEMOGLOBIN. 7.6 g/dL (12.0-16.0); MEAN CORPUSCULAR HEMOGLOBIN 31.9 pg (28.0-32.0); MEAN CORPUSCULAR VOLUME 96.1 fL (81.0-99.0); MEAN PLATELET VOLUME 10.6 fl (7.4-10.4); PLATELET 299 x1000/uL (130-400); RED BLOOD CELL COUNT 2.37 mill/uL (4.2-5.4); RED CELL DISTRIBUTION WIDTH 19.7 % (11.6-14.6)
[2022-12-29] MEDS: ATORVASTATIN CALCIUM 10MG TABLET PO SCH (08:30)
[2022-12-29] MEDS: FAMOTIDINE 20MG TABLET PO SCH (08:30)
[2022-12-29] MEDS: HYDRALAZINE HCL 50MG TABLET PO SCH ×3 (08:38→17:00)
[2022-12-29] MEDS: FOLIC ACID/VITAMIN B COMP W-C TABLET PO SCH (08:38)
[2022-12-29] MEDS: AMLODIPINE 5MG TABLET PO SCH ×2 (08:38→22:05)
[2022-12-29] MEDS: ACETAMINOPHEN 325MG TABLET PO PRN ×2 (10:19→22:25)
[2022-12-29] MEDS: LIDOCAINE 5% PATCH TOP SCH (12:16)
[2022-12-29] MEDS ORDERED: ENOXAPARIN 30MG/0.3ML SYR SUBCUT SCH (21:00)
[2022-12-29] MEDS ORDERED: EPOETIN ALFA 4000UNITS/ML VIAL SUBCUT SCH (21:00)
[2022-12-29] MEDS: INSULIN GLARGINE 100 UNITS/ML SUBCUT SCH (22:00)
[2022-12-29] MEDS: EPOETIN ALFA-EPBX 4,000 UNIT/ML VIAL SUBCUT SCH (22:05)
[2022-12-30] MEDS: VANCOMYCIN 1000MG/20ML ORAL SOLN PO SCH ×4 (01:45→18:33)
[2022-12-30 04:00] VITALS: BP 135/52
[2022-12-30 06:57] LABS: HEMATOCRIT. 22.8 % (36.0-48.0); HEMOGLOBIN. 7.4 g/dL (12.0-16.0); MEAN CORPUSCULAR HEMOGLOBIN 31.4 pg (28.0-32.0); MEAN CORPUSCULAR VOLUME 96.3 fL (81.0-99.0); MEAN PLATELET VOLUME 10.4 fl (7.4-10.4); PLATELET 317 x1000/uL (130-400); RED BLOOD CELL COUNT 2.37 mill/uL (4.2-5.4); RED CELL DISTRIBUTION WIDTH 20.1 % (11.6-14.6)
[2022-12-30] MEDS: INSULIN LISPRO 100 UNITS/ML SUBCUT SCH ×4 (07:50→21:49)
[2022-12-30] MEDS: BLOOD SUGAR DIAGNOSTIC STRIP TEST SCH ×4 (07:54→21:49)
[2022-12-30 08:00] VITALS: BP 134/54
[2022-12-30 09:42] LABS: PLATELET ESTIMATE NORMAL
[2022-12-30] MEDS: FOLIC ACID/VITAMIN B COMP W-C TABLET PO SCH (10:42)
[2022-12-30] MEDS: HYDRALAZINE HCL 50MG TABLET PO SCH ×2 (10:42→18:33)
[2022-12-30] MEDS: AMLODIPINE 5MG TABLET PO SCH ×2 (10:43→21:00)
[2022-12-30] MEDS: FAMOTIDINE 20MG TABLET PO SCH (10:43)
[2022-12-30] MEDS: LIDOCAINE 5% PATCH TOP SCH (10:49)
[2022-12-30 12:00] VITALS: BP 144/84
[2022-12-30] MEDS ORDERED: IPRATROPIUM/ALBUTEROL 0.5-3(2.5)MG/3ML NEB HHN PRN (12:45)
[2022-12-30] MEDS ORDERED: ALBUTEROL (0.083%) 2.5MG/3ML NEB HHN PRN (13:15)
[2022-12-30] MEDS ORDERED: IPRATROPIUM BROMIDE (0.02%) 0.5MG/2.5ML NEB HHN PRN (13:15)
[2022-12-30] MEDS: ATORVASTATIN CALCIUM 10MG TABLET PO SCH (13:36)
[2022-12-30 13:58] LABS: NUCLEATED RED BLOOD CELLS 1 /100 WBC; PLATELET ESTIMATE NORMAL
[2022-12-30 15:42] LABS: INR 1.1; PROTHROMBIN TIME 11.9 sec (9.6-11.0)
[2022-12-30 16:00] VITALS: BP 127/62
[2022-12-30 20:00] VITALS: BP 108/50
[2022-12-30] MEDS: INSULIN GLARGINE 100 UNITS/ML SUBCUT SCH (21:49)
[2022-12-31] VITALS (15 sets, daily range): BP systolic 130–157; BP diastolic 49–65
[2022-12-31] MEDS: VANCOMYCIN 1000MG/20ML ORAL SOLN PO SCH ×3 (00:54→18:20)
[2022-12-31] MEDS: BLOOD SUGAR DIAGNOSTIC STRIP TEST SCH ×4 (07:38→21:05)
[2022-12-31 07:57] LABS: HEMATOCRIT. 22.5 % (36.0-48.0); HEMOGLOBIN. 7.3 g/dL (12.0-16.0); MEAN CORPUSCULAR HEMOGLOBIN 31.6 pg (28.0-32.0); MEAN CORPUSCULAR VOLUME 97.3 fL (81.0-99.0); MEAN PLATELET VOLUME 10.7 fl (7.4-10.4); PLATELET 328 x1000/uL (130-400); RED BLOOD CELL COUNT 2.32 mill/uL (4.2-5.4); RED CELL DISTRIBUTION WIDTH 19.8 % (11.6-14.6)
[2022-12-31] MEDS: AMLODIPINE 5MG TABLET PO SCH ×2 (09:00→21:06)
[2022-12-31] MEDS: HYDRALAZINE HCL 50MG TABLET PO SCH ×3 (09:00→18:20)
[2022-12-31] MEDS: INSULIN LISPRO 100 UNITS/ML SUBCUT SCH ×2 (09:01→18:24)
[2022-12-31] MEDS: LIDOCAINE 5% PATCH TOP SCH (11:21)
[2022-12-31] MEDS: FOLIC ACID/VITAMIN B COMP W-C TABLET PO SCH (11:22)
[2022-12-31] MEDS: ATORVASTATIN CALCIUM 10MG TABLET PO SCH (11:22)
[2022-12-31] MEDS: FAMOTIDINE 20MG TABLET PO SCH (11:22)
[2022-12-31] MEDS: ACETAMINOPHEN 325MG TABLET PO PRN (12:29)
[2022-12-31 17:37] LABS: NUCLEATED RED BLOOD CELLS 2 /100 WBC; PLATELET ESTIMATE NORMAL
[2022-12-31] MEDS: EPOETIN ALFA-EPBX 4,000 UNIT/ML VIAL SUBCUT SCH (21:07)
[2023-01-01] VITALS: BP 153/48
[2023-01-01] MEDS: INSULIN LISPRO 100 UNITS/ML SUBCUT SCH ×5 (01:14→23:48)
[2023-01-01] MEDS: INSULIN GLARGINE 100 UNITS/ML SUBCUT SCH ×2 (01:15→23:48)
[2023-01-01 04:00] VITALS: BP 147/50
[2023-01-01] MEDS: VANCOMYCIN 1000MG/20ML ORAL SOLN PO SCH ×4 (05:39→18:00)
[2023-01-01 07:03] LABS: HEMATOCRIT. 23.5 % (36.0-48.0); HEMOGLOBIN. 7.6 g/dL (12.0-16.0); MEAN CORPUSCULAR HEMOGLOBIN 31.6 pg (28.0-32.0); MEAN CORPUSCULAR VOLUME 97.8 fL (81.0-99.0); MEAN PLATELET VOLUME 10.1 fl (7.4-10.4); PLATELET 337 x1000/uL (130-400); RED BLOOD CELL COUNT 2.41 mill/uL (4.2-5.4)
[2023-01-01] MEDS: BLOOD SUGAR DIAGNOSTIC STRIP TEST SCH ×3 (07:20→21:00)
[2023-01-01 08:00] VITALS: BP 73/34
[2023-01-01] MEDS: AMLODIPINE 5MG TABLET PO SCH ×2 (10:00→21:19)
[2023-01-01] MEDS: HYDRALAZINE HCL 50MG TABLET PO SCH ×3 (11:00→17:56)
[2023-01-01 11:25] LABS: NUCLEATED RED BLOOD CELLS 3 /100 WBC
[2023-01-01 11:26] LABS: PLATELET ESTIMATE NORMAL
[2023-01-01] MEDS: ACETAMINOPHEN 325MG TABLET PO PRN (11:44)
[2023-01-01 12:00] VITALS: BP 174/43
[2023-01-01] MEDS: ATORVASTATIN CALCIUM 10MG TABLET PO SCH (12:36)
[2023-01-01] MEDS: FOLIC ACID/VITAMIN B COMP W-C TABLET PO SCH (12:37)
[2023-01-01] MEDS: FAMOTIDINE 20MG TABLET PO SCH (12:37)
[2023-01-01] MEDS ORDERED: AMLO5TAB88 PO ×2 (13:06)
[2023-01-01] MEDS ORDERED: VANJ5 PO ×2 (13:06)
[2023-01-01 16:00] VITALS: BP 132/49
[2023-01-01 20:00] VITALS: BP 140/50
[2023-01-02] VITALS (15 sets, daily range): BP systolic 137–184; BP diastolic 48–84
[2023-01-02] MEDS: VANCOMYCIN 1000MG/20ML ORAL SOLN PO SCH ×4 (06:00→18:33)
[2023-01-02 07:10] LABS: HEMATOCRIT. 22.5 % (36.0-48.0); HEMOGLOBIN. 7.2 g/dL (12.0-16.0); MEAN CORPUSCULAR HEMOGLOBIN 30.9 pg (28.0-32.0); MEAN CORPUSCULAR VOLUME 96.6 fL (81.0-99.0); PLATELET 330 x1000/uL (130-400); RED BLOOD CELL COUNT 2.33 mill/uL (4.2-5.4); RED CELL DISTRIBUTION WIDTH 20.1 % (11.6-14.6)
[2023-01-02] MEDS: BLOOD SUGAR DIAGNOSTIC STRIP TEST SCH ×4 (07:52→21:00)
[2023-01-02] MEDS: HYDRALAZINE HCL 50MG TABLET PO SCH ×3 (08:38→17:00)
[2023-01-02] MEDS: LIDOCAINE 5% PATCH TOP SCH (08:38)
[2023-01-02] MEDS: AMLODIPINE 5MG TABLET PO SCH ×2 (08:39→21:00)
[2023-01-02] MEDS: ATORVASTATIN CALCIUM 10MG TABLET PO SCH (08:39)
[2023-01-02] MEDS: FOLIC ACID/VITAMIN B COMP W-C TABLET PO SCH (08:39)
[2023-01-02] MEDS: FAMOTIDINE 20MG TABLET PO SCH (08:40)
[2023-01-02] MEDS: INSULIN LISPRO 100 UNITS/ML SUBCUT SCH ×4 (08:47→21:00)
[2023-01-02 10:57] LABS: NUCLEATED RED BLOOD CELLS 1 /100 WBC; PLATELET ESTIMATE NORMAL
[2023-01-02] MEDS: EPOETIN ALFA-EPBX 4,000 UNIT/ML VIAL SUBCUT SCH (21:00)
[2023-01-02 21:05] LABS: HEPATITIS B SURFACE ANTIGEN NEGATIVE
[2023-01-02] MEDS: ACETAMINOPHEN 325MG TABLET PO PRN (21:08)
[2023-01-02] MEDS: INSULIN GLARGINE 100 UNITS/ML SUBCUT SCH (23:12)
[2023-01-03] VITALS: BP 153/53
[2023-01-03] MEDS: VANCOMYCIN 1000MG/20ML ORAL SOLN PO SCH ×4 (00:43→17:46)
[2023-01-03 04:00] VITALS: BP 155/52
[2023-01-03] MEDS: ACETAMINOPHEN 325MG TABLET PO PRN ×3 (06:48→22:39)
[2023-01-03] MEDS: BLOOD SUGAR DIAGNOSTIC STRIP TEST SCH ×4 (06:51→21:00)
[2023-01-03] MEDS: INSULIN LISPRO 100 UNITS/ML SUBCUT SCH ×4 (07:50→22:04)
[2023-01-03 08:00] VITALS: BP 123/44
[2023-01-03] MEDS: ATORVASTATIN CALCIUM 10MG TABLET PO SCH (11:28)
[2023-01-03] MEDS: HYDRALAZINE HCL 50MG TABLET PO SCH ×3 (11:28→17:00)
[2023-01-03] MEDS: FAMOTIDINE 20MG TABLET PO SCH (11:28)
[2023-01-03] MEDS: FOLIC ACID/VITAMIN B COMP W-C TABLET PO SCH (11:28)
[2023-01-03] MEDS: LIDOCAINE 5% PATCH TOP SCH (11:29)
[2023-01-03] MEDS: AMLODIPINE 5MG TABLET PO SCH ×2 (11:29→22:03)
[2023-01-03 12:00] VITALS: BP 123/40
[2023-01-03 15:45] LABS: HEMATOCRIT. 25.6 % (36.0-48.0); HEMOGLOBIN. 8.4 g/dL (12.0-16.0); MEAN CORPUSCULAR HEMOGLOBIN 31.3 pg (28.0-32.0); MEAN CORPUSCULAR VOLUME 96.1 fL (81.0-99.0); MEAN PLATELET VOLUME 9.8 fl (7.4-10.4); PLATELET 328 x1000/uL (130-400); RED BLOOD CELL COUNT 2.67 mill/uL (4.2-5.4); RED CELL DISTRIBUTION WIDTH 18.6 % (11.6-14.6)
[2023-01-03 16:00] VITALS: BP 117/57
[2023-01-03 20:00] VITALS: BP 140/50
[2023-01-03 20:37] LABS: PLATELET ESTIMATE NORMAL
[2023-01-03] MEDS: INSULIN GLARGINE 100 UNITS/ML SUBCUT SCH (22:04)
[2023-01-04] VITALS: BP 123/48
[2023-01-04] MEDS: VANCOMYCIN 1000MG/20ML ORAL SOLN PO SCH ×2 (00:10→06:25)
[2023-01-04 04:00] VITALS: BP 140/48
[2023-01-04] MEDS: BLOOD SUGAR DIAGNOSTIC STRIP TEST SCH (07:20)
[2023-01-04] MEDS: INSULIN LISPRO 100 UNITS/ML SUBCUT SCH (07:50)
[2023-01-04 08:00] VITALS: BP 139/50
[2023-01-04] MEDS: HYDRALAZINE HCL 50MG TABLET PO SCH (09:17)
[2023-01-04] MEDS: ATORVASTATIN CALCIUM 10MG TABLET PO SCH (09:17)
[2023-01-04] MEDS: FAMOTIDINE 20MG TABLET PO SCH (09:18)
[2023-01-04] MEDS: AMLODIPINE 5MG TABLET PO SCH (09:18)
[2023-01-04] MEDS: FOLIC ACID/VITAMIN B COMP W-C TABLET PO SCH (09:18)
[2023-01-04] MEDS: LIDOCAINE 5% PATCH TOP SCH (09:52)
[2023-01-04 12:00] VITALS: BP 139/45
[2023-01-04] MEDS ORDERED: AMLO5TAB88 MT (12:18)
[2023-01-04] MEDS ORDERED: VANC250C12 MT (12:18)
[2023-01-04 15:03] VITALS: BP 139/45
[2023-01-04 15:30] LABS: HEMATOCRIT. 26.8 % (36.0-48.0); HEMOGLOBIN. 8.6 g/dL (12.0-16.0); MEAN PLATELET VOLUME 9.9 fl (7.4-10.4); PLATELET 320 x1000/uL (130-400); RED BLOOD CELL COUNT 2.77 mill/uL (4.2-5.4); RED CELL DISTRIBUTION WIDTH 19.3 % (11.6-14.6)
[2023-01-05 16:16] LABS: NUCLEATED RED BLOOD CELLS 7 /100 WBC
[2023-01-05 16:18] LABS: PLATELET ESTIMATE NORMAL
== END 2023-01-04 17:45 | disposition home health service (06) | DRG 871 ==
LOC: ER 17:49 → MICUSO 22:31 → 7EST 12-23 03:06 → 6EST 12-29 12:15
PROVIDERS: ADMIT Family Medicine Adult Medicine; ATTEND Family Medicine Adult Medicine
PROC: 5A1D70Z Performance of Urinary Filtration, Intermittent, Less than 6 Hours Per Day (ICD-10-PCS; 2022-12-23)
PROC: 5A1D70Z Performance of Urinary Filtration, Intermittent, Less than 6 Hours Per Day (ICD-10-PCS; 2022-12-25)
PROC: 5A1D70Z Performance of Urinary Filtration, Intermittent, Less than 6 Hours Per Day (ICD-10-PCS; 2022-12-27)
PROC: 5A1D70Z Performance of Urinary Filtration, Intermittent, Less than 6 Hours Per Day (ICD-10-PCS; 2022-12-29)
PROC: 0W993ZZ Drainage of Right Pleural Cavity, Percutaneous Approach (ICD-10-PCS; principal; 2022-12-31)
PROC: 5A1D70Z Performance of Urinary Filtration, Intermittent, Less than 6 Hours Per Day (ICD-10-PCS; 2022-12-31)
PROC: 30233N1 Transfusion of Nonautologous Red Blood Cells into Peripheral Vein, Percutaneous Approach (ICD-10-PCS; 2023-01-02)
PROC: 5A1D70Z Performance of Urinary Filtration, Intermittent, Less than 6 Hours Per Day (ICD-10-PCS; 2023-01-02)
DX: A41.9 Sepsis, unspecified organism (principal); J18.9 Pneumonia, unspecified organism; N18.6 End stage renal disease; J96.21 Acute and chronic respiratory failure with hypoxia; I50.30 Unspecified diastolic (congestive) heart failure; E46 Unspecified protein-calorie malnutrition; I13.2 Hypertensive heart and chronic kidney disease with heart failure and with stage 5 chronic kidney disease, or end stage renal disease; J91.8 Pleural effusion in other conditions classified elsewhere; E11.22 Type 2 diabetes mellitus with diabetic chronic kidney disease; E88.09 Other disorders of plasma-protein metabolism, not elsewhere classified; K22.0 Achalasia of cardia; E87.6 Hypokalemia; Z20.822 Contact with and (suspected) exposure to COVID-19; K59.00 Constipation, unspecified; K64.4 Residual hemorrhoidal skin tags; D72.821 Monocytosis (symptomatic); D63.1 Anemia in chronic kidney disease; L89.156 Pressure-induced deep tissue damage of sacral region; R53.81 Other malaise; Z88.8 Allergy status to other drugs, medicaments and biological substances; Z79.899 Other long term (current) drug therapy; Z79.4 Long term (current) use of insulin; Z86.73 Personal history of transient ischemic attack (TIA), and cerebral infarction without residual deficits; Z90.81 Acquired absence of spleen; Z90.711 Acquired absence of uterus with remaining cervical stump; Z91.041 Radiographic dye allergy status; Z99.2 Dependence on renal dialysis; Z68.26 Body mass index [BMI] 26.0-26.9, adult
CPT/HCPCS: 32555; 36415; 71045; 76604; 78580; 80048; 80053; 82040; 82962; 83036; 83615; 83735; 83880; 84100; 84134; 84145; 84484; 85025; 85379; 86705; 86706; 86709; 86803; 86850; 86900; 86920; 87340; 87426; 88108; 90935; 93005; 99285; J0456; J0696; J0885; J1650; J1815; J3370; J7060; J8597; P9016

== ENCOUNTER 2023-01-19 21:01 | Inpatient (IN) | payer MEDICARE, MEDICAID ==
[~2023-01-19] VITALS: Ht 144.8 cm; Wt 56.7 kg
[~2023-01-19 21:01] MED LIST changes: +AMLO5TAB88 MT; -LOSA100T32 PO; +VANC250C12 MT
[2023-01-19] MEDS ORDERED: FUROSEMIDE 40MG/4ML VIAL IV ONE (21:15)
[2023-01-19 22:09] LABS: HEMOGLOBIN. 9.7 g/dL (12.0-16.0); MEAN CORPUSCULAR HEMOGLOBIN 30.6 pg (28.0-32.0); MEAN PLATELET VOLUME 9.9 fl (7.4-10.4); PLATELET 469 x1000/uL (130-400); RED BLOOD CELL COUNT 3.17 mill/uL (4.2-5.4); RED CELL DISTRIBUTION WIDTH 19.4 % (11.6-14.6)
[2023-01-19 22:14] LABS: CHLORIDE 94 mEq/L (98-107)
[2023-01-19] MEDS ORDERED: ALBUTEROL (0.5%) 2.5MG/0.5ML NEB HHN ONE (22:15)
[2023-01-19] MEDS ORDERED: IPRATROPIUM BROMIDE (0.02%) 0.5MG/2.5ML NEB HHN ONE (22:15)
[2023-01-19 22:36] LABS: PLATELET ESTIMATE NORMAL
[2023-01-20] MEDS ORDERED: DOCUSATE SODIUM 100MG CAPSULE PO PRN (00:45)
[2023-01-20] MEDS ORDERED: LORAZEPAM 0.5MG TABLET PO PRN (00:45)
[2023-01-20] MEDS ORDERED: ONDANSETRON HCL 4MG/2ML INJ IV PRN (00:45)
[2023-01-20] MEDS ORDERED: HYDROCODONE/ACETAMINOPHEN 5/325MG TABLET PO PRN (00:45)
[2023-01-20] MEDS ORDERED: IPRATROPIUM/ALBUTEROL 0.5-3(2.5)MG/3ML NEB HHN PRN (00:45)
[2023-01-20] MEDS ORDERED: ACETAMINOPHEN 325MG TABLET PO PRN ×2 (00:45)
[2023-01-20] MEDS ORDERED: ALBUTEROL (0.083%) 2.5MG/3ML NEB HHN PRN (01:15)
[2023-01-20] MEDS ORDERED: IPRATROPIUM BROMIDE (0.02%) 0.5MG/2.5ML NEB HHN PRN (01:15)
[2023-01-20 03:00] VITALS: BP 141/52
[2023-01-20] MEDS ORDERED: PIPERACILLIN/TAZOBACTAM 3.375 G in DEXTROSE 5% WATER 50 ML IV SCH (06:00)
[2023-01-20 08:30] VITALS: BP 121/46
[2023-01-20 11:22] LABS: HEPATITIS B SURFACE ANTIGEN NEGATIVE
[2023-01-20 11:37] VITALS: BP 146/45
[2023-01-20] MEDS: BLOOD SUGAR DIAGNOSTIC STRIP TEST SCH ×3 (12:40→21:15)
[2023-01-20] MEDS ORDERED: DEXTROSE 50% WATER 50ML SYRINGE IV PRN (12:45)
[2023-01-20] MEDS ORDERED: NALOXONE HCL 0.4MG/ML VIAL IV PRN (13:00)
[2023-01-20] MEDS: INSULIN LISPRO 100 UNITS/ML SUBCUT SCH ×3 (13:07→21:32)
[2023-01-20 15:17] VITALS: BP 138/48
[2023-01-20] MEDS: AZITHROMYCIN 500 MG in DEXT 5% WATER 250 ML IV SCH (15:40)
[2023-01-20] MEDS ORDERED: CEFTRIAXONE 1GM PREMIX 50 ML IV SCH (16:00)
[2023-01-20] MEDS ORDERED: CEFTRIAXONE 1,000 MG in DEXTROSE 5% WATER 50 ML IV SCH (17:30)
[2023-01-20 20:00] VITALS: BP 108/57
[2023-01-21] VITALS (31 sets, daily range): BP systolic 105–216; BP diastolic 40–100
[2023-01-21 05:59] LABS: BASOPHILS % 0.4 % (0.0-2.0); EOSINOPHILS % 0.5 % (0.0-5.0); HEMATOCRIT. 25.5 % (36.0-48.0); HEMOGLOBIN. 8.2 g/dL (12.0-16.0); LYMPHOCYTES % 12.3 % (20.0-50.0); MEAN CORPUSCULAR HEMOGLOBIN 31.3 pg (28.0-32.0); MEAN CORPUSCULAR VOLUME 97.2 fL (81.0-99.0); MEAN PLATELET VOLUME 10.3 fl (7.4-10.4); MONOCYTES % 13.4 % (2.0-8.0); NEUTROPHILS % 73.4 % (40.0-76.0); PLATELET 371 x1000/uL (130-400); RED BLOOD CELL COUNT 2.62 mill/uL (4.2-5.4); RED CELL DISTRIBUTION WIDTH 18.8 % (11.6-14.6)
[2023-01-21] MEDS: BLOOD SUGAR DIAGNOSTIC STRIP TEST SCH ×4 (06:24→21:14)
[2023-01-21] MEDS: INSULIN LISPRO 100 UNITS/ML SUBCUT SCH ×4 (08:34→21:16)
[2023-01-21] MEDS: PANTOPRAZOLE 40MG DR TABLET PO SCH (08:35)
[2023-01-21] MEDS: ATORVASTATIN CALCIUM 10MG TABLET PO SCH (08:35)
[2023-01-21] MEDS: CLONIDINE 0.1MG TABLET PO PRN (09:04)
[2023-01-21] MEDS: AZITHROMYCIN 500 MG in DEXT 5% WATER 250 ML IV SCH (12:26)
[2023-01-21] MEDS ORDERED: SUCCINYLCHOLINE CHLORIDE 200MG/10ML IV ONE (16:42)
[2023-01-21] MEDS ORDERED: ETOMIDATE 2MG/ML 10ML VIAL IV ONE (16:42)
[2023-01-21] MEDS ORDERED: EPHEDRINE SULFATE 50MG/ML VIAL ONE (16:43)
[2023-01-21] MEDS ORDERED: MIDAZOLAM HCL 2 MG/2 ML VIAL ONE (17:36)
[2023-01-21] MEDS ORDERED: ROCURONIUM BROMIDE 10MG/ML VIAL 5ML IV ONE (17:37)
[2023-01-21] MEDS ORDERED: ATROPINE SULFATE 1MG/10ML SYR ONE (17:38)
[2023-01-21] MEDS ORDERED: CEFTRIAXONE 1GM PREMIX 50 ML IV SCH (18:00)
[2023-01-21 18:32] LABS: BG BASE EXCESS 3.6 mmol/L (-2.0-2.0); BG CARBOXYHEMOGLOBIN 0.6 % (0.5-1.5); BG DEOXYHEMOGLOBIN 0.6 % (0.0-5.0); BG FRACTION INSPIRED OXYGEN 60; BG HCO3 ACT 26.4 mmol/L (22.0-26.0); BG METHEMOGLOBIN 0.1 % (0.0-1.5); BG OXYGEN SATURATION 99.4 % (92.0-98.5); BG OXYHEMOGLOBIN 98.7 % (94.0-97.0); BG PCO2 33.5 mmHg (35.0-45.0); BG PH 7.515 (7.350-7.450); BG PO2 297.3 mmHg (75.0-100.0); BG SAMPLE SITE RIGHT BRACHIAL; BG VENT MODE VENT - AC
[2023-01-21] MEDS: PROPOFOL 10MG/ML 100ML 100 ML IV PRN (19:00)
[2023-01-21] MEDS: HYDRALAZINE 20MG/ML VIAL IV PRN (19:01)
[2023-01-21] MEDS: DEXT 5%/0.9% NACL 1,000 ML IV SCH (19:05)
[2023-01-21] MEDS ORDERED: IPRATROPIUM/ALBUTEROL 0.5-3(2.5)MG/3ML NEB HHN PRN (19:15)
[2023-01-21 21:07] LABS: INR 1.1; PROTHROMBIN TIME 11.9 sec (9.6-11.0)
[2023-01-21] MEDS: CEFTRIAXONE 1GM PREMIX 50 ML IV SCH (21:24)
[2023-01-21] MEDS ORDERED: INSULIN LISPRO 100 UNITS/ML SUBCUT NR (22:00)
[2023-01-21] MEDS ORDERED: FENTANYL CITRATE/PF 2,500 MCG in SODIUM CHLORIDE 0.9% 200 ML IV PRN (22:15)
[2023-01-21] MEDS ORDERED: FENTANYL CITRATE/PF 2,500 MCG in DEXT 5% WATER 200 ML IV PRN (22:15)
[2023-01-22] VITALS (81 sets, daily range): BP systolic 94–205; BP diastolic 23–88
[2023-01-22] MEDS: PROPOFOL 10MG/ML 100ML 100 ML IV PRN (04:10)
[2023-01-22] MEDS: BLOOD SUGAR DIAGNOSTIC STRIP TEST SCH ×4 (05:41→21:15)
[2023-01-22 06:03] LABS: HEMATOCRIT. 25.5 % (36.0-48.0); HEMOGLOBIN. 8.2 g/dL (12.0-16.0); MEAN CORPUSCULAR HEMOGLOBIN 31.1 pg (28.0-32.0); MEAN CORPUSCULAR VOLUME 96.8 fL (81.0-99.0); MEAN PLATELET VOLUME 10.1 fl (7.4-10.4); PLATELET 387 x1000/uL (130-400); RED BLOOD CELL COUNT 2.63 mill/uL (4.2-5.4); RED CELL DISTRIBUTION WIDTH 19.1 % (11.6-14.6)
[2023-01-22] MEDS: INSULIN LISPRO 100 UNITS/ML SUBCUT SCH ×5 (06:31→21:17)
[2023-01-22 06:38] LABS: FOLIC ACID (FOLATE) SERUM >20 ng/mL ng/mL (>5.38); VITAMIN B12 SERUM >2000 pg/mL pg/mL (211-911)
[2023-01-22 06:44] LABS: FERRITIN 370 ng/mL (10-291)
[2023-01-22] MEDS: HYDRALAZINE 20MG/ML VIAL IV PRN ×2 (08:18→15:31)
[2023-01-22 08:46] LABS: NUCLEATED RED BLOOD CELLS 1 /100 WBC
[2023-01-22 08:47] LABS: PLATELET ESTIMATE NORMAL
[2023-01-22] MEDS ORDERED: KCL 20MEQ/100ML PREMIX 100 ML IV SCH (09:00)
[2023-01-22] MEDS: ATORVASTATIN CALCIUM 10MG TABLET PO SCH (09:00)
[2023-01-22] MEDS: PANTOPRAZOLE 40MG DR TABLET PO SCH (09:00)
[2023-01-22] MEDS ORDERED: PROPOFOL 10MG/ML 100ML 100 ML IV PRN (11:15)
[2023-01-22] MEDS: AZITHROMYCIN 500 MG in DEXT 5% WATER 250 ML IV SCH (13:48)
[2023-01-22 16:59] LABS: BG CARBOXYHEMOGLOBIN 0.7 % (0.5-1.5); BG FRACTION INSPIRED OXYGEN 40; BG HCO3 ACT 24.8 mmol/L (22.0-26.0); BG METHEMOGLOBIN 0.2 % (0.0-1.5); BG OXYHEMOGLOBIN 98.1 % (94.0-97.0); BG PCO2 46.1 mmHg (35.0-45.0); BG PH 7.349 (7.350-7.450); BG PO2 176.9 mmHg (75.0-100.0); BG SAMPLE SITE RIGHT BRACHIAL; BG TOTAL HEMOGLOBIN 11.3 g/dL (12.0-18.0); BG VENT MODE VENT - CPAP
[2023-01-22] MEDS: DEXT 5%/0.9% NACL 1,000 ML IV SCH (19:32)
[2023-01-22] MEDS: CEFTRIAXONE 1GM PREMIX 50 ML IV SCH (21:15)
[2023-01-23] VITALS (36 sets, daily range): BP systolic 104–186; BP diastolic 42–85
[2023-01-23 05:14] LABS: BASOPHILS % 0.2 % (0.0-2.0); EOSINOPHILS % 0.4 % (0.0-5.0); HEMATOCRIT. 26.6 % (36.0-48.0); HEMOGLOBIN. 8.5 g/dL (12.0-16.0); LYMPHOCYTES % 6.4 % (20.0-50.0); MEAN CORPUSCULAR HEMOGLOBIN 31.2 pg (28.0-32.0); MEAN CORPUSCULAR VOLUME 97.4 fL (81.0-99.0); MONOCYTES % 13.8 % (2.0-8.0); NEUTROPHILS % 79.2 % (40.0-76.0); PLATELET 420 x1000/uL (130-400); RED BLOOD CELL COUNT 2.73 mill/uL (4.2-5.4); RED CELL DISTRIBUTION WIDTH 19.3 % (11.6-14.6)
[2023-01-23] MEDS: PANTOPRAZOLE 40MG DR TABLET PO SCH (06:15)
[2023-01-23] MEDS: BLOOD SUGAR DIAGNOSTIC STRIP TEST SCH ×5 (06:16→21:00)
[2023-01-23] MEDS: INSULIN LISPRO 100 UNITS/ML SUBCUT SCH ×4 (06:16→21:00)
[2023-01-23 08:21] LABS: BG BASE EXCESS -1.8 mmol/L (-2.0-2.0); BG CARBOXYHEMOGLOBIN 0.7 % (0.5-1.5); BG DEOXYHEMOGLOBIN 3.4 % (0.0-5.0); BG HCO3 ACT 23.7 mmol/L (22.0-26.0); BG METHEMOGLOBIN 0.1 % (0.0-1.5); BG OXYGEN SATURATION 96.6 % (92.0-98.5); BG OXYHEMOGLOBIN 95.8 % (94.0-97.0); BG PCO2 43.6 mmHg (35.0-45.0); BG PH 7.353 (7.350-7.450); BG PO2 92.6 mmHg (75.0-100.0); BG SAMPLE SITE RIGHT BRACHIAL; BG TOTAL HEMOGLOBIN 9.9 g/dL (12.0-18.0); BG VENT MODE ROOM AIR
[2023-01-23] MEDS: ATORVASTATIN CALCIUM 10MG TABLET PO SCH (08:51)
[2023-01-23] MEDS: AZITHROMYCIN 500 MG in DEXT 5% WATER 250 ML IV SCH (13:24)
[2023-01-23] MEDS: HYDRALAZINE 20MG/ML VIAL IV PRN (16:47)
[2023-01-23] MEDS ORDERED: DEXTROSE 50% WATER 50ML SYRINGE IV PRN (18:30)
[2023-01-23] MEDS: CLONIDINE 0.1MG TABLET PO PRN (18:58)
[2023-01-23] MEDS ORDERED: ALBUTEROL (0.083%) 2.5MG/3ML NEB HHN PRN (21:45)
[2023-01-23] MEDS ORDERED: IPRATROPIUM BROMIDE (0.02%) 0.5MG/2.5ML NEB HHN PRN (21:45)
[2023-01-23] MEDS: CEFTRIAXONE 1GM PREMIX 50 ML IV SCH (22:09)
[2023-01-24] VITALS: BP 129/57
[2023-01-24 04:00] VITALS: BP 168/55
[2023-01-24] MEDS: BLOOD SUGAR DIAGNOSTIC STRIP TEST SCH ×4 (05:58→21:09)
[2023-01-24 06:26] LABS: HEMATOCRIT. 24.5 % (36.0-48.0); HEMOGLOBIN. 7.9 g/dL (12.0-16.0); MEAN CORPUSCULAR HEMOGLOBIN 31.2 pg (28.0-32.0); MEAN CORPUSCULAR VOLUME 96.7 fL (81.0-99.0); PLATELET 372 x1000/uL (130-400); RED BLOOD CELL COUNT 2.53 mill/uL (4.2-5.4); RED CELL DISTRIBUTION WIDTH 18.8 % (11.6-14.6)
[2023-01-24] MEDS: INSULIN LISPRO 100 UNITS/ML SUBCUT SCH ×4 (06:50→21:32)
[2023-01-24] MEDS: PANTOPRAZOLE 40MG DR TABLET PO SCH (06:51)
[2023-01-24] MEDS: HYDRALAZINE 20MG/ML VIAL IV PRN (06:51)
[2023-01-24 08:00] VITALS: BP 108/33
[2023-01-24] MEDS: ATORVASTATIN CALCIUM 10MG TABLET PO SCH (09:16)
[2023-01-24 10:28] LABS: NUCLEATED RED BLOOD CELLS 3 /100 WBC
[2023-01-24 10:30] LABS: PLATELET ESTIMATE NORMAL
[2023-01-24 12:00] VITALS: BP 144/85
[2023-01-24] MEDS: AZITHROMYCIN 500 MG in DEXT 5% WATER 250 ML IV SCH ×2 (13:10→15:11)
[2023-01-24] MEDS ORDERED: PANTOT AC/MIN OIL/PET HY-PHL OINT (AQUAPHOR) TOP SCH (14:30)
[2023-01-24 16:00] VITALS: BP 123/54
[2023-01-24] MEDS: CEFTRIAXONE 1GM PREMIX 50 ML IV SCH (18:58)
[2023-01-24 20:00] VITALS: BP 170/57
[2023-01-24] MEDS ORDERED: EPOETIN ALFA-EPBX 4,000 UNIT/ML VIAL SUBCUT SCH (21:00)
[2023-01-25] VITALS: BP 180/50
[2023-01-25] MEDS: HYDRALAZINE 20MG/ML VIAL IV PRN ×2 (02:23→15:31)
[2023-01-25 04:00] VITALS: BP 156/44
[2023-01-25] MEDS: BLOOD SUGAR DIAGNOSTIC STRIP TEST SCH ×4 (06:06→21:54)
[2023-01-25] MEDS: PANTOPRAZOLE 40MG DR TABLET PO SCH (06:20)
[2023-01-25] MEDS: INSULIN LISPRO 100 UNITS/ML SUBCUT SCH ×4 (06:25→21:45)
[2023-01-25 07:13] LABS: HEMATOCRIT. 24.9 % (36.0-48.0); MEAN CORPUSCULAR HEMOGLOBIN 31.1 pg (28.0-32.0); MEAN PLATELET VOLUME 10.3 fl (7.4-10.4); PLATELET 365 x1000/uL (130-400); RED BLOOD CELL COUNT 2.57 mill/uL (4.2-5.4); RED CELL DISTRIBUTION WIDTH 19.5 % (11.6-14.6)
[2023-01-25 08:00] VITALS: BP 154/56
[2023-01-25] MEDS: ATORVASTATIN CALCIUM 10MG TABLET PO SCH (09:41)
[2023-01-25 12:00] VITALS: BP 172/60
[2023-01-25 14:02] LABS: PLATELET ESTIMATE NORMAL
[2023-01-25] MEDS ORDERED: VISCOUS LIDOCAINE 2% 15 ML UDC MM PRN (14:30)
[2023-01-25 16:00] VITALS: BP 155/43
[2023-01-25] MEDS: CEFTRIAXONE 1GM PREMIX 50 ML IV SCH (18:21)
[2023-01-25 20:00] VITALS: BP 155/58
[2023-01-26] VITALS (10 sets, daily range): BP systolic 125–177; BP diastolic 42–82
[2023-01-26] MEDS: BLOOD SUGAR DIAGNOSTIC STRIP TEST SCH ×3 (06:39→16:40)
[2023-01-26] MEDS: PANTOPRAZOLE 40MG DR TABLET PO SCH (06:39)
[2023-01-26 06:41] LABS: HEMATOCRIT. 25.3 % (36.0-48.0); HEMOGLOBIN. 8.2 g/dL (12.0-16.0); MEAN CORPUSCULAR VOLUME 96.3 fL (81.0-99.0); MEAN PLATELET VOLUME 10.3 fl (7.4-10.4); PLATELET 368 x1000/uL (130-400); RED BLOOD CELL COUNT 2.63 mill/uL (4.2-5.4); RED CELL DISTRIBUTION WIDTH 19.4 % (11.6-14.6)
[2023-01-26] MEDS: ATORVASTATIN CALCIUM 10MG TABLET PO SCH (09:00)
[2023-01-26] MEDS: INSULIN LISPRO 100 UNITS/ML SUBCUT SCH ×3 (10:03→18:21)
[2023-01-26 11:26] LABS: NUCLEATED RED BLOOD CELLS 2 /100 WBC; PLATELET ESTIMATE NORMAL
[2023-01-26 14:26] LABS: BG BASE EXCESS 0.7 mmol/L (-2.0-2.0); BG CARBOXYHEMOGLOBIN 0.6 % (0.5-1.5); BG FRACTION INSPIRED OXYGEN 21; BG HCO3 ACT 25.8 mmol/L (22.0-26.0); BG METHEMOGLOBIN 0.3 % (0.0-1.5); BG OXYGEN SATURATION 93.9 % (92.0-98.5); BG OXYHEMOGLOBIN 93.1 % (94.0-97.0); BG PCO2 43.3 mmHg (35.0-45.0); BG PH 7.393 (7.350-7.450); BG PO2 70.9 mmHg (75.0-100.0); BG SAMPLE SITE RIGHT BRACHIAL; BG VENT MODE ROOM AIR
[2023-01-26] MEDS: CEFTRIAXONE 1GM PREMIX 50 ML IV SCH (16:46)
[2023-01-26] MEDS ORDERED: VANCOMYCIN 1000MG/20ML ORAL SOLN PO SCH (18:00)
[2023-01-26] MEDS: CLONIDINE 0.1MG TABLET PO PRN (20:00)
[2023-01-26] MEDS: HYDRALAZINE 20MG/ML VIAL IV PRN (20:39)
== END 2023-01-26 21:03 | DRG 871 ==
LOC: ER 21:01 → MICUSO 22:16 → EDBEDREQ 22:30 → EDBEDREQTM 22:30 → 7WST 01-20 03:01 → MICUSO 01-21 18:58 → 7EST 01-23 14:15
PROVIDERS: ADMIT Family Medicine Adult Medicine; ATTEND Family Medicine Adult Medicine
PROC: 0DJ68ZZ Inspection of Stomach, Via Natural or Artificial Opening Endoscopic (ICD-10-PCS; principal; 2023-01-21)
PROC: 0BH17EZ Insertion of Endotracheal Airway into Trachea, Via Natural or Artificial Opening (ICD-10-PCS; 2023-01-21)
PROC: 5A1935Z Respiratory Ventilation, Less than 24 Consecutive Hours (ICD-10-PCS; 2023-01-21)
PROC: 5A1D70Z Performance of Urinary Filtration, Intermittent, Less than 6 Hours Per Day (ICD-10-PCS; 2023-01-21)
PROC: 5A1D70Z Performance of Urinary Filtration, Intermittent, Less than 6 Hours Per Day (ICD-10-PCS; 2023-01-23)
PROC: 5A1D70Z Performance of Urinary Filtration, Intermittent, Less than 6 Hours Per Day (ICD-10-PCS; 2023-01-26)
DX: A41.9 Sepsis, unspecified organism (principal); J18.9 Pneumonia, unspecified organism; J96.00 Acute respiratory failure, unspecified whether with hypoxia or hypercapnia; N18.6 End stage renal disease; I50.32 Chronic diastolic (congestive) heart failure; E46 Unspecified protein-calorie malnutrition; E87.1 Hypo-osmolality and hyponatremia; I13.2 Hypertensive heart and chronic kidney disease with heart failure and with stage 5 chronic kidney disease, or end stage renal disease; A04.71 Enterocolitis due to Clostridium difficile, recurrent; E11.22 Type 2 diabetes mellitus with diabetic chronic kidney disease; D63.8 Anemia in other chronic diseases classified elsewhere; E88.09 Other disorders of plasma-protein metabolism, not elsewhere classified; Z20.822 Contact with and (suspected) exposure to COVID-19; K64.4 Residual hemorrhoidal skin tags; E11.65 Type 2 diabetes mellitus with hyperglycemia; E78.5 Hyperlipidemia, unspecified; K22.89 Other specified disease of esophagus; L89.156 Pressure-induced deep tissue damage of sacral region; K22.2 Esophageal obstruction; Z66 Do not resuscitate; Z99.2 Dependence on renal dialysis; Z87.01 Personal history of pneumonia (recurrent); Z79.4 Long term (current) use of insulin; Z86.73 Personal history of transient ischemic attack (TIA), and cerebral infarction without residual deficits; Z86.16 Personal history of COVID-19; Z90.81 Acquired absence of spleen; Z90.711 Acquired absence of uterus with remaining cervical stump; Z90.49 Acquired absence of other specified parts of digestive tract; Z91.041 Radiographic dye allergy status; Z68.27 Body mass index [BMI] 27.0-27.9, adult; T18.128A Food in esophagus causing other injury, initial encounter
CPT/HCPCS: 36415; 36600; 70360; 71045; 76604; 80048; 80053; 82375; 82607; 82728; 82746; 82805; 82962; 83036; 83540; 83550; 83880; 84145; 84478; 84484; 85025; 85044; 86705; 86709; 86803; 87340; 87426; 90935; 92610; 93005; 94002; 94003; 94640; 97162; 97530; 99285; A6261; J0330; J0360; J0456; J0461; J0696; J0885; J1815; J1940; J2250; J2543; J2704; J3370; J3480; J3490; J7042; J7060

== ENCOUNTER 2025-05-10 15:03 | Emergency (ER) | payer MEDICARE, MEDICAID ==
[~2025-05-10] VITALS: Ht 152.4 cm; Wt 59.0 kg
[~2025-05-10 15:03] MED LIST changes: -AMLO5TAB88 MT; +AMLO5TAB88 PO; -CALC-1249 PO; -CALC667C PO; +CYCL30DR EACHEYE; +DOCU-422 PO; -DORZ10DR17 OP; +DORZ10DR8 EACHEYE; +FERR325T6 MT; +FOLI0.8T53 PO; -HYDR-4135 PO; +HYDR50TA39 PO; -INSU100I24 SQ; +INSU100I24 SUBCUT; +INSU100I31 SUBCUT; +LACT-394 MT; -LINA5TAB PO; -NEPVIT PO; +SENN-362 PO; +SEVE0.8P PO; -VANC250C12 MT; +ZINC1CAP2 PO
[2025-05-10 15:16] VITALS: O2SAT 99
[2025-05-10] MEDS ORDERED: LIDOCAINE HCL/PF 1% 10 MG/ML 5ML VIAL INFIL ONE (15:45)
[2025-05-10 15:51] VITALS: BP 178/64; PULSE 76; RESP 22; TEMP 36.5; O2SAT 100
[2025-05-10] MEDS: BACITRACIN ZINC OINT UDPKT TOP ONE (16:03)
== END 2025-05-10 16:44 | disposition home or self-care (01) ==
LOC: ER 15:03
DX: S55.812A Laceration of other blood vessels at forearm level, left arm, initial encounter (principal); T82.838A Hemorrhage due to vascular prosthetic devices, implants and grafts, initial encounter; I77.0 Arteriovenous fistula, acquired; E11.9 Type 2 diabetes mellitus without complications; I11.0 Hypertensive heart disease with heart failure; I50.9 Heart failure, unspecified; Z79.4 Long term (current) use of insulin; Z79.621 Long term (current) use of calcineurin inhibitor; Z79.899 Other long term (current) drug therapy; Z88.5 Allergy status to narcotic agent; Z88.8 Allergy status to other drugs, medicaments and biological substances; Z90.49 Acquired absence of other specified parts of digestive tract; Z90.710 Acquired absence of both cervix and uterus; Z91.041 Radiographic dye allergy status; X58.XXXA Exposure to other specified factors, initial encounter; Y93.89 Activity, other specified; Y84.1 Kidney dialysis as the cause of abnormal reaction of the patient, or of later complication, without mention of misadventure at the time of the procedure; Y99.8 Other external cause status
CPT/HCPCS: 99283; 12001; J2003; A4606